=== PATIENT | female | born 1955 | race Caucasian/White ===

== ENCOUNTER 2019-06-17 08:02 | Outpatient (CLI) | payer OTHER, SELFPAY ==
--- NOTE | 2019-06-17 08:12 | MM_ITS ---
WS: [id number] BILATERAL SCREENING DIGITAL MAMMOGRAM WITH CAD HISTORY: SCREENING COMPARISON: 11/09/2016 and 11/29/2012 Bilateral CC and MLO views submitted. Computer aided detection analyzed. Breast composition: There are scattered areas of fibroglandular density. No suspicious masses, microc alcifications or architectural distortion. Asymmetry in the posterior LEFT breast is stable. MM/[id number] IMPRESSION: BI-RADS: 2-Benign FOLLOW UP: 1 Year Follow-up
== END 2019-06-17 08:03 | disposition home or self-care (01) ==
LOC: RADSHAW 08:08
PROVIDERS: Family Provider Family Medicine; PCP Family Medicine; Visit Provider Family Medicine
DX: Z12.31 Encounter for screening mammogram for malignant neoplasm of breast (principal)
CPT/HCPCS: 77067

== ENCOUNTER 2020-12-31 13:45 | Outpatient (CLI) | payer OTHER, SELFPAY ==
--- NOTE | 2020-12-31 13:53 | MM_ITS ---
WS: [id number] BILATERAL DIGITAL SCREENING MAMMOGRAPHY WITH CAD CLINICAL INFORMATION: SCREENING HISTORY: Screening mammogram. No current complaints. COMPARISON: June 17, 2019 TECHNIQUE: Bilateral CC and MLO views. FINDINGS: Scattered fibroglandular densities bilaterally. A few punctate calcifications. No suspicious focal ma ss, asymmetry, calcifications, or architectural distortion. No evidence of malignancy. MM/[id number] IMPRESSION: BI-RADS: 2-Benign FOLLOW UP: 1 Year Follow-up Recommend return to annual screening mammography.
== END 2020-12-31 13:46 | disposition home or self-care (01) ==
LOC: RADSHAW 13:50
PROVIDERS: PCP Family Medicine; Visit Provider Family Medicine
DX: Z12.31 Encounter for screening mammogram for malignant neoplasm of breast (principal)
CPT/HCPCS: 77067

== ENCOUNTER → 2022-02-06 09:27 | Outpatient (BNVA) | payer MEDICARE, SELFPAY | PROVIDERS: PCP Family Medicine; Visit Provider Family Medicine | DX: E78.5 Hyperlipidemia, unspecified (principal); I10 Essential (primary) hypertension; E11.9 Type 2 diabetes mellitus without complications | CPT/HCPCS: 80053; 80061; 82607; 83036 ==

== ENCOUNTER 2022-02-28 14:46 | Outpatient (CLI) | payer MEDICARE, SELFPAY ==
--- NOTE | 2022-02-28 15:18 | MM_ITS ---
WS: [id number] BILATERAL 3D TOMOSYNTHESIS DIGITAL SCREENING MAMMOGRAPHY WITH CAD CLINICAL INFORMATION: SCREEN HISTORY: Screening mammogram. No current complaints. COMPARISON: December 31, 2020 TECHNIQUE: Bilateral CC and MLO views. FINDINGS: Scattered fibroglandular densities bilaterally. No suspicious focal mass, asymmetry, calcifications, or architectural distortion. No evidence of malignancy. A few tiny punctate calcifications. MM/[id number] IMPRESSION: BI-RADS: 2-Benign FOLLOW UP: 1 Year Follow-up Recommend return to annual screening mammography.
== END 2022-02-28 14:47 | disposition home or self-care (01) ==
LOC: RAD 14:48
PROVIDERS: PCP Family Medicine; Visit Provider Family Medicine
DX: Z12.31 Encounter for screening mammogram for malignant neoplasm of breast (principal)
CPT/HCPCS: 77063; 77067

== ENCOUNTER → 2023-03-13 13:36 | Outpatient (BNVA) | payer MEDICARE, SELFPAY | PROVIDERS: PCP Family Medicine; Visit Provider Podiatrist Foot & Ankle Surgery | DX: E11.42 Type 2 diabetes mellitus with diabetic polyneuropathy; M76.821 Posterior tibial tendinitis, right leg; M76.822 Posterior tibial tendinitis, left leg | CPT/HCPCS: 73610; 99203 ==

== ENCOUNTER 2023-05-19 19:18 | Inpatient (IN) | payer MEDICARE, SELFPAY ==
[2023-05-19 19:22] VITALS: BP 199/102; PULSE 133; RESP 18; TEMP 36.6; O2SAT 94
--- NOTE | 2023-05-19 19:35 | CTR_ITS ---
PROCEDURE INFORMATION: Exam: CT Abdomen And Pelvis With Contrast Exam date and time: 05/19/2023 7:58 PM Age: 67 years old Clinical indication: Abdominal pain; Generalized; Prior surgery; Surgery date: 6+ months; Surgery type: Gb. Hysterectomy. Tubal. Patient HX: C/O worsening severe abd pain post colonoscopy 05/17/2022. TECHNIQUE: Imaging protocol: Computed tomography of the abdomen and pelvis with contrast. Radiation optimization: All CT scans at this facility use at least one of these dose optimization techniques: automated exposure control; mA and/or kV adjustment per patient size (includes targeted exams where dose is matched to clinical indication); or iterative reconstruction. Contrast material: OMNI 350; Contrast volume: 100 ml; Contrast route: INTRAVENOUS (IV); COMPARISON: No relevant prior studies available. RADIATION DOSE METRICS: Total DLP (mGy-cm): 1066.18 FINDINGS: Mediastinal space: Pneumomediastinum. Liver: See Gallbladder and bile ducts finding. Gallbladder and bile ducts: The gallbladder has been removed. Prominence of the intrahepatic and extrahepatic biliary ducts. This can be seen after cholecystectomy. No radiopaque retained stones are seen. Pancreas: Normal. No ductal dilation. Spleen: Normal. No splenomegaly. Adrenal glands: Normal. No mass. Kidneys and ureters: There is a short segment of dilatation of the distal right ureter without an obstructing calculus seen. Mild mid to distal right periureteral stranding. There are multiple foci of retroperitoneal air which surround the right kidney and the right ureter. Stomach and bowel: There is a 2.1 cm linear metallic density within the descending colon lumen possibly extending into the posterior colonic mucosa. There is a heterogeneous collection in the mesentery adjacent to the hepatic flexure colon containing complex fluid and multiple foci of air. There is a large amount of the intraperitoneal air surrounding this region. There is adjacent mesenteric stranding. This region measures 4.7 x 4.4 cm in AP/transverse dimensions. The adjacent hepatic flexure colon mucosa is thickened and ill-defined. Appendix: A normal appendix is identified. Intraperitoneal space: There is a large amount of free intraperitoneal air in the abdomen/pelvis. There is right retroperitoneal air as well. Vasculature: 13 mm peripherally calcified splenic artery aneurysm. No evidence for rupture. There is intermediate density surrounding the right common iliac artery which cannot be differentiated from the adjacent right common iliac vein concerning for vascular injury. No active extravasation of contrast is seen in this region. Lymph nodes: Unremarkable. No enlarged lymph nodes. Urinary bladder: Unremarkable as visualized. Reproductive: The uterus is not visualized, consistent with hysterectomy. Bones/joints: Unremarkable. No acute fracture. Soft tissues: Soft tissue emphysema. CT/CT abdomen pelvis w con* [id number] IMPRESSION: 1. There is a large amount of intraperitoneal and right retroperitoneal air consistent with a ruptured viscus. 2. There is a heterogeneous collection in the mesentery adjacent to the hepatic flexure colon containing complex fluid and multiple foci of air concerning for an abscess formation. The adjacent hepatic flexure colon mucosa is thickened and ill-defined with a surrounding large amount of free intraperitoneal air. This may represent the site of viscus rupture. 3. There is intermediate density surrounding the right common iliac artery which cannot be differentiated from the adjacent right common iliac vein concerning for vascular injury. No active extravasation of contrast is seen in this region. 4. There is a short segment of dilatation of the distal right ureter without an obstructing calculus seen. Mild mid to distal right periureteral stranding. There are multiple foci of retroperitoneal air which surround the right kidney and the right ureter. 5. There is a 2.1 cm linear metallic density within the descending colon lumen possibly extending into the posterior colonic mucosa. 6. Pneumomediastinum.
--- NOTE | 2023-05-19 19:39 | ED_ITS ---
HPI - Abdominal Pain 2 General: Chief Complaint: Abdominal Pain Stated Complaint: abd pAIN Time Seen by Provider: 05/19/23 19:26 Source: patient Mode of arrival: ambulatory Limitations: no limitations History of Present Illness: 67-year-old female who states that she h ad had a colonoscopy 3 days ago states since then she has been having diffuse abdominal pain. States the pain is sharp in nature rates it a 5 out of 10 denies any worsening proving factors. Associated Symptoms: Denies chills, diarrhea, dysuria, fever(s), nausea and vomiting Review of Systems 2 Const: Denies: fever(s), chills, body aches or change in appetite ENMT: Denies: throat pain or dental pain Card: Denies: chest pain Resp: Denies: dyspnea GI: Reports: abdominal pain; Denies: nausea, vomiting or diarrhea : Denies: dysuria Musc: Denies: neck pain or back pain Skin/Breast: Denies: rash Neuro: Denies: headache(s) Physical Exam 2 Const: COMMON NORMALS: no acute distress, patient oriented x3 and healthy appearing HENMT: COMMON NORMALS: normocephalic and atraumatic HEAD & SCALP: n ormocephalic and atraumatic Eye: COMMON NORMALS: Equal, round and reactive pupils present and EOMs intact bilaterally PUPIL: Yes Equal, round and reactive pupils present Neck/C-Spine: COMMON NORMALS: full ROM and supple Chest: COMMONS NORMALS: normal inspection of the chest Resp: COMMON NORMALS: normal respiratory effort Cardio: COMMON NORMALS: regular rhythm and No murmurs present (Cardio) R ATE: tachycardic RHYTHM: regular rhythm GI: COMMON NORMALS: no masses OTHER: diffuse tenderness Extremity: COMMON NORMALS: normal to inspection and full ROM Neuro: COMMON NORMALS: patient oriented x3, moves all extremities and no focal motor deficits Psych: COMMON NORMALS: mental status grossly normal, Normal thought process present and cooperative THOUGHT PROCESS: Normal thought process present Skin: COMMON NORMALS: no rashes or lesions noted and no wounds GENERAL SKIN EXAM: no rashes or lesions noted Course 2 Vital Signs: Vital signs: Vital Signs Temperature 98 F 05/19/23 19:22 Pulse Rate 108 H 05/19/23 20:00 Respiratory Rate 18 05/19/23 19:48 Blood Pressure 165/86 05/19/23 20:00 Pulse Oximetry 95 01/06/24 20:00 Oxygen Delivery Me thod Room Air 05/19/23 20:00 MDM - Abdominal Pain Medical Decision Making Patient presents here with perforation from colonoscopy likely CT shows extensive perforation and free air spoke to Dr. Willams surgeon whose came in to see the patient's likely going to take to the OR did start her on antibiotics. Medical Records I reviewed the patient's medical records. Lab Data I reviewed the patient's lab results. 05/19/23 19:37 05/19/23 20:28 Labs/Radiology: Radiology Impressions Abdomen/Pelvis CT 05/19/23 19:35 IMPRESSION: 1. There is a large amount of intraperitoneal and right retroperitoneal air consistent with a ruptured viscus. 2. There is a heterogeneous collection in the mesentery adjacent to the hepatic flexure colon containing complex fluid and multiple foci of air concerning for an abscess formation. The adjacent hepatic flexure colon mucosa is thickened and ill-defined with a surrounding large amount of free intraperitoneal air. This may represent the site of viscus rupture. 3. There is intermediate density surrounding the right common iliac artery which cannot be differentiated from the adjacent right common iliac vein concerning for vascular injury. No active extravasation of contrast is seen in this region. 4. There is a short segment of dilatation of the distal right ureter without an obstructing calculus seen. Mild mid to distal right periureteral stranding. There are multiple foci of retroperitoneal air which surround the right kidney and the right ureter. 5. There is a 2.1 cm linear metallic density within the descending colon lumen possibly extending into the posterior colonic mucosa. 6. Pneumomediastinum. ADDENDUM: 05/19/232041 CRITICAL RESULT: The study was personally discussed on the telephone with BRADY Kennedy on 05/19/2023 8:40 PM [employer]. The results were understood and acknowledged. Laboratory Results WBC 16.78 10^3/uL (3.29-11.43) H 05/19/23 19:37 RBC 4.62 10^6/uL (3.85-5.65) 05/19/23 19:37 Hgb 14.20 g/dL (11.27-16.99) 05/19/23 19:37 Hct 40.8 % (36-47) 05/19/23 19:37 MCV 88.3 fl (85-98) 05/19/23 19:37 MCH 30.7 pg (27-33) 05/19/23 19:37 MCHC 34.8 g/dL (30-55) 05/19/23 19:37 RDW 11.9 % (12.1-15.1) L 05/19/23 19:37 Plt Count 372 10^3/cmm (157-399) 05/19/23 19:37 MPV 9.1 fL (7.4-10.4) 05/19/23 19:37 Neut % (Auto) 82.7 % 05/19/23 19:37 Lymph % (Auto) 11.4 % 05/19/23 19:37 Taliaferro % (Auto) 4.6 % 05/19/23 19:37 Eos % (Auto) 0.8 % 05/19/23 19:37 Baso % (Auto) 0.1 % 05/19/23 19:37 Neut # (Auto) 13.88 10^3/uL (1.8-7.7) H 05/19/23 19:37 Lymph # (Auto) 1.9 10^3/uL (0.8-4.8) 05/19/23 19:37 Taliaferro # (Auto) 0.8 10^3/uL (0.2-0.9) 05/19/23 19:37 Eos # (Auto) 0.1 10^3/uL (0.0-0.8) 05/19/23 19:37 Baso # (Auto) 0.0 10^3/uL (0.0-0.1) 05/19/23 19:37 Nucleated RBC % (auto) 0 % 05/19/23 19:37 Nucleated RBCs # 0.0 /100WBC 05/19/23 19:37 Sodium Cancelled 05/19/23 19:37 Potassium Cancelled 05/19/23 19:37 Chloride Cancelled 05/19/23 19:37 Carbon Dioxide Cancelled 05/19/23 19:37 Anion Gap Cancelled 05/19/23 19:37 BUN Cancelled 05/19/23 19:37 Creatinine Cancelled 05/19/23 19:37 GFR Calculation Cancelled 05/19/23 19:37 Glucose Cancelled 05/19/23 19:37 Calculated Osmolality Cancelled 05/19/23 19:37 Calcium Cancelled 05/19/23 19:37 Total Bilirubin Cancelled 05/19/23 19:37 AST Cancelled 05/19/23 19:37 ALT Cancelled 05/19/23 19:37 Alkaline Phosphatase Cancelled 05/19/23 19:37 Total Protein Cancelled 05/19/23 19:37 Albumin Cancelled 05/19/23 19:37 Globulin Cancelled 05/19/23 19:37 Lipase Cancelled 05/19/23 19:37 Urine Color Yellow (Yellow) 05/19/23 19:31 Urine Appearance Hazy (CLEAR) A 05/19/23 19:31 Urine pH 6.5 (5-7) 05/19/23 19:[address] 1.005 (1.005-1.030) 05/19/23 19:31 Urine Protein Trace (Negative) 05/19/23 19:31 Urine Glucose (UA) 2+ (Normal) H 05/19/23 19:31 Urine Ketones 1+ (Negative) H 05/19/23 19:31 Urine Blood 2+ (Negative) H 05/19/23 19:31 Urine Nitrate Negative (Negative) 05/19/23 19:31 Urine Bilirubin Neg (Negative) 05/19/23 19:31 Urine Urobilinogen Norm mg/dL (Negative) 05/19/23 19:31 Ur Leukocyte Esterase 2+ (Negative) H 05/19/23 19:31 Urine RBC 5-10 /hpf (0-2) H 05/19/23 19:31 Urine WBC 25-40 /hpf (0-5) H 05/19/23 19:31 Ur Squamous Epith Cells 0-4 /hpf (0-5) H 05/19/23 19:31 Amorphous Sediment Trace /hpf 05/19/23 19:31 Urine Bacteria 1+ /hpf (NONE) H 05/19/23 19:31 Urine Mucus Trace /hpf 05/19/23 19:31 All radiology interpretation(s) finalized by discharge Critical Care Time 2 Critical Care Time: Critical Care Time: Yes Total Critical Care Time: 45 Attestation: The high probability of a clinically significant, sudden or life threatening deterioration of the patient's gi system(s) required my full and direct attention, intervention and personal management. The critical care time is as shown. This time is in addition to time spent performing any reported procedures but includes the following: [x] Data and vital sign review and interpretation [x] Patient assessment, examination and intervention [x] Documentation [x] Medication orders and management Discharge Plan Discharge Patient Disposition: Admitted As Inpatient Clinical Impression: Perforated abdominal viscus Condition: Stable Coding Level of Care Code ED Warp Drawer for Vargas Bruce
[2023-05-19] MEDS: sodium chloride 0.9% 1,000 ML 999 ML IV (19:45)
[2023-05-19 19:48] VITALS: RESP 18
[2023-05-19] MEDS: ondansetron 2 mg/ML SDV 2 mL 4 MG IVP (19:48)
[2023-05-19] MEDS: labetalol 5 mg/mL SDV 20mL 10 MG IVP (19:48)
[2023-05-19] MEDS: morphine 4 mg/mL SDV 1 mL IVP (19:48)
[2023-05-19 19:51] LABS: Basophils % 0.1 %; Eosinophils # 0.1 10^3/uL (0.0-0.8); Eosinophils % 0.8 %; Hematocrit 40.8 % (36-47); Lymphocytes # 1.9 10^3/uL (0.8-4.8); Lymphocytes % 11.4 %; Mean Corpuscular HGB Conc 34.8 g/dL (30-55); Mean Corpuscular Hemoglobin 30.7 pg (27-33); Mean Corpuscular Volume 88.3 fl (85-98); Mean Platelet Volume 9.1 fL (7.4-10.4); Monocytes # 0.8 10^3/uL (0.2-0.9); Monocytes % 4.6 %; Neutrophils # 13.88 10^3/uL (1.8-7.7); Neutrophils % 82.7 %; Nucleated Red Blood Cells % 0 %; Platelet Count 372 10^3/cmm (157-399); Red Blood Count 4.62 10^6/uL (3.85-5.65); Red Cell Distribution Width 11.9 % (12.1-15.1); White Blood Count 16.78 10^3/uL (3.29-11.43)
[2023-05-19 20:00] VITALS: BP 165/86; PULSE 108; O2SAT 95
[2023-05-19] MEDS: iohexol 350 mg/mL 500 mL Btl (per mL) IV (20:02)
[2023-05-19 20:11] LABS: Add Urine Microscopic? YES; Bilirubin Urine Neg (Negative); Blood Urine 2+ (Negative); Glucose Urine UA 2+ (Normal); Ketones Urine 1+ (Negative); Leukocyte Esterase Urine 2+ (Negative); Nitrate Urine Negative (Negative); Protein Urine Trace (Negative); Specific Gravity, Urine 1.005 (1.005-1.030); Urine Appearance Hazy (CLEAR); Urine Color Yellow (Yellow); Urobilinogen Urine Norm (Negative); pH Urine 6.5 (5-7)
[2023-05-19 20:13] LABS: Amorphous Sediment Urine TRACE /hpf; Bacteria Urine 1+ /hpf; Squamous Epithelial Cell Urine 0-4 /hpf (0-5); WBC Urine 25-40 /hpf (0-5)
[2023-05-19 20:14] LABS: Add Urine Culture? Yes; Mucus Urine TRACE /hpf
--- NOTE | 2023-05-19 20:20 | PC.NURSE ---
PER DR CLEVELAND, PT DOES NOT NEED TO HAVE BLOOD CULTURES DRAWN PRIOR TO STARTING ANTIBIOTICS.
[2023-05-19] MEDS: piperacillin-tazobactam 3.375 GM in sodium chloride 0.9% (plus) 50 ML IV (20:29)
--- NOTE | 2023-05-19 20:35 | P.HP_ITS ---
Providers/Chief Complaint 2 Primary Care Provider: ASHOK Padron Chief Complaint: abd pAIN History of Present Illness Mary Torre is a 67 year old female who had colonoscopy with Dr. Jeronimo 2 days ago as screening colonoscopy because there is a family history of GI malignancy, patient never had any established diagnosis of malignancy, she does not carry any significant past medical history other than hypertension and diabetes she does not take any insulin, she has history of cholecystectomy, hysterectomy and tubal ligation other than that no significant surgical history presenting with chief complaint of right-sided dull abdominal pain. Patient is stating that right after her colonoscopy she felt dull ache in her right flank but she did not pay much attention, she was writing out her pain she was not experiencing any fever, nausea, vomiting she in fact was passing gas and regular bowel movement. Her daughter convinced her to go to the hospital today in the ER she has been diagnosed with perforated viscus she does have high lactic acid with tachycardia and leukocytosis she would meet sepsis criteria, she seems to have component of UTI/pyelonephritis She received 2 L I will give her third liter as septic bolus I will start her on meropenem, vancomycin and clindamycin, she is going to the OR on stat basis, Dr. Willams is seeing her right now in the ER I will request blood cultures, repeat lactic acid, patient has received Zosyn Review of Systems 2 Const: Denies: fever(s) Eyes: Denies: change in vision ENMT: Denies: throat pain Card: Denies: chest pain Resp: Denies: dyspnea GI: Reports: abdominal pain : Reports: flank pain Musc: Denies: neck pain Skin/Breast: Denies: rash Neuro: Denies: headache(s) Psych: Reports: anxiety Endo: Denies: polyuria Dave/Lymph: Denies: easy bruising Medications/Allergies Home Medications Medication Instructions Recorded Confirmed Last Taken Type metformin 1,000 mg tablet 1,000 mg PO BID #180 tabs 03/08/23 03/13/23 Unknown Rx AFO to right #1 ea 03/13/23 03/13/23 Unknown Rx Diabetic Shoes with 3 sets of #1 ea 03/13/23 03/13/23 Unknown Rx insoles Allergies Allergy/AdvReac Type Severity Reaction Status Date / Time Quqpsla-LUO-CyG Reductase Allergy Unknown Verified 05/19/23 19:29 Inhibitor PFSH Acute 2 PFSH: Medical History (Updated 05/19/23 @ 21:00 by Russ Velásquez MD) Hypertension Well adult exam Diabetes Screening for breast cancer Surgical History (Updated 05/19/23 @ 21:00 by Russ Velásquez MD) History of colonoscopy Screening colonoscopy Vitals/I&O/Wt Last Vital Signs Temp 98 F 05/19/23 19:22 Pulse 108 H 05/19/23 20:00 Resp 18 05/19/23 19:48 BP 165/86 05/19/23 20:00 Pulse Ox 95 05/19/23 20:00 O2 Del Method Room Air 05/19/23 20:00 Weight last 48 hrs Weight 104.326 kg Physical Exam 2 Narrative: Present middle-age female Currently not in any distress Sitting in her bed without any active discomfort No active chest pain or shortness of breath No audible stridor or wheezing Currently on room air Hemodynamic stable Tachycardia Abdomen distended, with guarding Right flank discomfort No active signs of fluid overload S1, S2 Family at the bedside GCS 15 Nonfocal neuroexam Data 05/19/23 19:37 05/19/23 20:28 A&P Assessment and plan (1) Perforated abdominal viscus: (2) Sepsis: (3) UTI (urinary tract infection): Plan Sepsis related to perforated viscus Recent colonoscopy was done by general surgeon Dr. Jeronimo as per the family, Her colonoscopy was a follow-up screening procedure because of history of GI cancer in the family She does not have any history of cancer Patient is stating that every time she goes for colonoscopy polyps have been removed She only carries history of hypertension and diabetes RCRI low risk she is not on insulin, creatinine is normal, no previous history of coronary disease Sepsis criteria met with tachypnea tachycardia leukocytosis high lactic acid with evidence of organ damage appropriate viscus I will put her on 3 different antibiotics including vancomycin meropenem and clindamycin, and using clindamycin as toxin suppression as 3 doses postoperatively I will give her septic bolus she had received 2 L so far I will give her third liter of LR Blood cultures ordered by myself Will request urine culture she seems to have UTI, rule out pyonephritis Patient will stay n.p.o. At Protonix 40 mg IV twice daily I will also request type and screen and echo She will go to ICU after her surgery She will need central line placement as well, I am anticipating she will stay n.p.o. for prolonged. Time will request dietitian as well in case she would require TPN via central line Will add DVT prophylaxis after surgery Full code Family at the bedside Attestations 2 Medical Necessity Statement*: Anticipating more than 2 midnights patient is septic will need ICU, she is considered high risk for mortality and morbidity considering her active condition She will need closer monitoring Diagnoses Perforated abdominal viscus R19.8 Sepsis A41.9 UTI (urinary tract infection) N39.0
[2023-05-19 20:48] LABS: Lactic Sepsis W/Reflex 3.1 mmol/L (0.5-2.2)
--- NOTE | 2023-05-19 20:52 | P.CONIM_ITS ---
Providers/Reason For Consult 2 Consulting Physician/Specialty*: Dr. Ran Willams, /General surgery Reason for Consult*: Intestinal perforation Attending Physician: Ran Willams DO Primary Care Provider: ASHOK Padron History of Present Illness History of Present Illness Mary Torre is a 67 year old female, with a history significant only for hypertension and diabetes along with a surgical history of open cholecystectomy and hysterectomy, who presents to the hospital with a 2-day history of right upper quadrant abdominal pain. She underwent an elective colonoscopy two days ago at an outside facility. She reports that she is gotten progressive right- sided abdominal pain that is sharp and constant. Palpation makes pain worse. Nothing makes pain better. She denies any nausea or vomiting. She reports the passing flatus since the procedure but not having a bowel movement. She has eaten since surgery, but she has not had anything to eat or drink since 3 PM today. Denies any fever or chills. CT abdomen pelvis shows gross free air with inflammation worse in the right upper quadrant. There is also subcutaneous emphysema along the right flank. Review of Systems 2 General: Reports: 10 or more systems reviewed and unremarkable except in HPI and below Medications/Allergies Home Medications Medication Instructions Recorded Confirmed Last Taken Type metformin 1,000 mg tablet 1,000 mg PO BID #180 tabs 03/08/23 03/13/23 Unknown Rx AFO to right #1 ea 03/13/23 03/13/23 Unknown Rx Diabetic Shoes with 3 sets of #1 ea 03/13/23 03/13/23 Unknown Rx insoles Allergies Allergy/AdvReac Type Severity Reaction Status Date / Time Gkrbzeo-LTA-SaD Reductase Allergy Unknown Verified 05/19/23 19:29 Inhibitor PFSH Acute 2 PFSH: Medical History (Updated 05/19/23 @ 21:00 by Russ Velásquez MD) Hypertension Well adult exam Diabetes Screening for breast cancer Surgical History (Updated 05/19/23 @ 21:00 by Russ Velásquez MD) History of colonoscopy Screening colonoscopy Vitals/I&O/Wt Last Vital Signs Temp 98 F 05/19/23 19:22 Pulse 108 H 05/19/23 20:00 Resp 18 05/19/23 19:48 BP 165/86 05/19/23 20:00 Pulse Ox 95 05/19/23 20:00 O2 Del Method Room Air 05/19/23 20:00 Weight last 48 hrs Weight 230 lb Physical Exam 2 Narrative: General : Patient is well developed , no acute distress, oriented x3 Head : Normal cephalic, a-traumatic. Ears : Pinnae and external canal are normal. Hearing is normal. Eyes : PERRLA, Sclera and injection are normal. No conjunctival discharge. Nose : Mucous membranes are without erythema. Throat : buccal mucosa is normal, gums are without significant recession or hypertrophy. Lungs : Equal chest rise bilaterally, no use of accessory muscles, trachea is midline. Cor : Tachycardic, regular rhythm Abdomen : Soft, distended, diffusely tender, positive guarding/rebound Extremities : No edema, no cyanosis or clubbing, dorsalis pedis pulses are present bilaterally, non-tender to palpation of calves. Upper extremities are normal bilaterally. Back : non-tender to palpation, no CVA tenderness. Neuro : CN II - XII intact, Upper and lower extremities have equal and full strength Data 05/19/23 19:37 05/19/23 20:28 A&P Assessment and plan (1) Perforated abdominal viscus: (2) History of colonoscopy: (3) Sepsis: Plan Taking her back to the operating room as soon as possible for exploratory laparotomy, possible ostomy, possible bowel resection The risk and benefits of the procedure, including but not limited to, bleeding, infection, scar, numbness, pain, damage to surrounding structures, anastomotic leak, high likelihood of patient being left in discontinuity with the intention of coming back 24 to 48 hours later for a second look, washout and possible reanastomosis, prolonged hospital stay and were explained to the patient and her family. They are understanding the risks and wished to proceed. Patient is being placed on vancomycin and meropenem. She will be going to the ICU after the procedure Coding Level of Care Code 71767 Diagnoses Perforated abdominal viscus R19.8 History of colonoscopy Z98.890 Sepsis A41.9
[2023-05-19 20:54] LABS: Alanine Aminotransferase 22 U/L (0-33); Albumin Level 3.4 g/dL (3.5-5.2); Alkaline Phosphatase 69 U/L (35-105); Anion Gap 15.1 (5-19); Aspartate Amino Transferase 20 U/L (0-32); Blood Urea Nitrogen 7 mg/dL (8-23); Calcium 8.9 mg/dL (8.5-10.5); Carbon Dioxide 23 mmol/L (22-29); Chloride 99 mmol/L (98-107); Glomerular Filtration Rate 83.7 mL/min (90-130); Glucose 230 mg/dL (65-115); Lipase 36 U/L (13-60); Osmolality Calculated 283 mOsm/kg (285-295); Potassium 3.1 mmol/L (3.5-5.1); Sodium 134 mmol/L (136-145); Total Bilirubin 0.6 mg/dL (0.15-1.2); Total Protein 6.4 g/dL (6.6-8.7)
[2023-05-19 21:09] VITALS: BP 184/98; PULSE 105; O2SAT 96
--- NOTE | 2023-05-19 21:40 | ANES.PREANE2 ---
Pre-Anesthetic Assessment Height/Weight: Height 1.75 m Weight 104.326 kg Temp Pulse Resp BP Pulse Ox O2 Del Method 98 F 105 H 18 184/98 96 Room Air 05/19/23 19:22 05/19/23 21:09 05/19/23 19:48 05/19/23 21:09 05/19/23 21:09 05/19/23 20:00 Preop Diagnosis: perforated bowel Operation Date: 05/19/23 21:00 Proposed Procedures p Exploratory Laparotomy(Not Applicable) - Ran Willams, Social No alcohol and No tobacco Exam alert, oriented x 3, clear to auscultation bilaterally and regular rate & rhythm Airway Submandibular: within normal limits Cervical ROM: within normal limits Mallampati: Class II Pulmonary None reported CV/HEM Hypertension None reported Hepatic None reported GI perforted bowel from colonoscopy days ago Metabolic Diabetes Mellitus and Morbid Obesity [facility] [place] None reported Neuropsych None reported Anesthetic Plan ASA status: 3E Anesthesia: General Risk of > 500 ml blood loss (7ml/kg in children): Yes, adequate IV access and fluids planned Medications/Allergies Home Medications Medication Instructions Recorded Confirmed Last Taken Type metformin 1,000 mg tablet 1,000 mg PO BID #180 tabs 03/08/23 03/13/23 Unknown Rx AFO to right #1 ea 03/13/23 03/13/23 Unknown Rx Diabetic Shoes with 3 sets of #1 ea 03/13/23 03/13/23 Unknown Rx insoles Allergies Allergy/AdvReac Type Severity Reaction Status Date / Time [id number] Reductase Allergy Unknown Verified 05/19/23 19:29 Inhibitor [facility] Anesthesia Medical History (Updated 05/19/23 @ 21:00 by Russ Velásquez MD) Hypertension Well adult exam Diabetes Screening for breast cancer Surgical History (Updated 05/19/23 @ 21:00 by Russ Velásquez MD) History of colonoscopy Screening colonoscopy Data Anesthesia 05/19/23 19:37 05/19/23 20:28 Short CBC 05/19/23 Range/Units 19:37 WBC 16.78 H (3.29-11.43) 10^3/uL Hgb 14.20 (11.27-16.99) g/dL Hct 40.8 (36-47) % MCV 88.3 (85-98) fl Plt Count 372 (157-399) 10^3/cmm Neut % (Auto) 82.7 % Neut # (Auto) 13.88 H (1.8-7.7) 10^3/uL BMP 05/19/23 05/19/23 19:37 20:28 Sodium Cancelled 134 L Potassium Cancelled 3.1 L Chloride Cancelled 99 Carbon Dioxide Cancelled 23 BUN Cancelled 7 L Creatinine Cancelled 0.7 Glucose Cancelled 230 H Calcium Cancelled 8.9 Liver Function 05/19/23 05/19/23 Range/Units 19:37 20:28 Total Bilirubin Cancelled 0.6 AST Cancelled 20 ALT Cancelled 22 Alkaline Phosphatase Cancelled 69 Albumin Cancelled 3.4 L Urine 05/19/23 Range/Units 19:31 Urine Color Yellow (Yellow) Urine Appearance Hazy A (CLEAR) Urine pH 6.5 (5-7) Ur Specific Biggers 1.005 (1.005-1.030) Urine Protein Trace (Negative) Urine Glucose (UA) 2+ H (Normal) Urine Ketones 1+ H (Negative) Urine Nitrate Negative (Negative) Urine Bilirubin Neg (Negative) Ur Leukocyte Esterase 2+ H (Negative) Urine RBC 5-10 H (0-2) /hpf Urine WBC 25-40 H (0-5) /hpf Cardiac Studies: No Data to Display
[2023-05-19 22:22] LABS: Reflex Lactate Order REFLEX LACTIC ORDERD
--- NOTE | 2023-05-19 23:58 | ANES.PROC ---
Anesthesia Procedures Procedure/Date: 05/19/23 Central Venous Insert: Central Venous Line: 7 fr 3-lumen 16cm Time Out Performed: Yes Consent: requested by attending/covering physician, from patient, risks and benefits reviewed and patient agrees to proceed Central Line: New Anesthesia monitors: pulse oximetry, EKG, BP cuff and oxygen Vein cannulated: left subclavian Post procedure: Obtain Chest X-Ray Additional Comments: Seldinger tech, full sterile attire, sutured in place, patient tolerated well...CXR pending. (Done in OR)
[2023-05-20] VITALS (38 sets, daily range): BP systolic 108–202; BP diastolic 60–107; PULSE 83–107; RESP 12–25; TEMP 36.7–37.5; O2SAT 93–99
--- NOTE | 2023-05-20 00:24 | PM.OP ---
Operative Report Date of procedure: May 20, 2023 Pre-op diagnosis: Perforated viscus Post-op diagnosis: Iatrogenic colon perforation at the hepatic flexure Procedure done: Exploratory laparotomy Extensive lysis of adhesions Right hemicolectomy Creation of omental flap Implants: 19 [place] Edin drain Specimens removed/disposition: Right colon and terminal ileum Surgeon: Ran Willams DO Anesthesia: General Estimated blood loss (mL): 50 Complications: None apparent Brief History: This is a very pleasant 67-year-old female who presented to the hospital with a 2-day history of right-sided abdominal pain. Workup revealed a colonic perforation. She had recently undergone an outpatient colonoscopy 2 days prior. Exploratory laparotomy, possible ostomy, possible bowel resection was indicated. The risk and benefits were explained and documented. Procedure: Patient was wheeled operative room placed on the OR table in supine position. The abdomen was inspected prepped and draped in usual sterile fashion. Right radial arterial line and a left subclavian central line were placed by the department of anesthesia. General endotracheal intubation was achieved by the department of anesthesia. A timeout was performed. All present were in agreement. An 11 blade scalpel was used to make a midline laparotomy incision from inferior to the umbilicus up to the xiphoid process. Electrocautery was then used to dissect down through the dermis and subcutaneous tissue down to the fascia. The fascia was opened sharply with electrocautery. This was extended cephalad and caudad over my finger with electrocautery. It was immediately obvious that there were extremely dense adhesions in the right upper quadrant and epigastrium from a previous open cholecystectomy as well as dense adhesions in the pelvis from a previous hysterectomy. Extensive lysis of adhesions was performed both bluntly and with electrocautery for over 90 minutes. Based upon previous CT, I felt it was likely the perforation was located near the hepatic flexure. The right white line of Toldt was taken down with electrocautery. Hepatic flexure was taken down with meticulous dissection using electrocautery and blunt dissection. The area of perforation was encountered in the retroperitoneum at the hepatic flexure. There was minimal stool spillage. Care was taken not to further contaminate. Next the terminal ileum was dissected free from the pelvis. This was densely scarred into the pelvis and was part of the 90 minutes of extensive lysis of adhesions. About 1 foot of the terminal ileum was taken up to the transverse colon. An enterotomy was made in the ileum and a colotomy was made in the transverse colon. A [id number], functional end-to-end anastomosis was made using a SAMSON a 100 blue load stapler x 2. Mesentery was taken and ligated with LigaSure. Specimen was passed off. Electrocautery was used to achieve hemostasis. The anastomosis looked healthy throughout the procedure. In order to protect the anastomosis I elected to create an omental flap. The only viable omentum after her previous open cholecystectomy was in the left upper quadrant. An omental flap was created using electrocautery and ligature to elongate a piece of the omentum to cover the anastomosis. The omentum was laid across the anastomosis. A 19 [place] Edin drain was then placed behind the anastomosis and the right upper quadrant and down the right colic gutter, exiting the abdomen and the right lower quadrant. The drain was sewn in place with 2-0 silk. The abdomen was irrigated and suctioned. Hemostasis was noted. The midline incision was then closed at the fascia with #1 PDS in a running fashion x 2. Skin was closed using arti. Sterile bandages were applied. Patient patient tolerated procedure well and was wheeled to the intensive care unit.
--- NOTE | 2023-05-20 00:48 | PC.NURSE ---
Received patient from OR via bed to ICU room 9 with RN and EMS HELICOPTER PILOT at bedside. Bagging patient through 8.0 OETT with 100% O2. Placed on mechanical ventilator per RT. Connected to media monitor. Large mid abdominal dressing clean, dry, and intact with Edin drain in place with serosang drainage. SCDs on patient, connected to pump. V/S stable.
[2023-05-20] MEDS: dextrose 5%-lactated ringers 1,000 ML 75 ML IV (01:10)
[2023-05-20] MEDS: clindamycin 900 MG/50 ML PREMIX 100 MG IV ×3 (01:11→16:54)
[2023-05-20] MEDS: propofol 1,000 MG/100 ML INJ 6.26 MG IV (01:29)
[2023-05-20] MEDS: meropenem 1,000 MG in sodium chloride 0.9% (plus) 50 ML 100 MG IV ×3 (01:42→18:24)
[2023-05-20 02:07] LABS: Lactate (Lactic Acid level) 1.3 mmol/L (0.5-2.2)
[2023-05-20] MEDS: vancomycin 2,000 MG/400 ML PIGGYBACK 200 MG (02:10)
[2023-05-20 04:16] LABS: ABG PCO2 39.5 mmHg (35-45); ABG PH Result 7.35 (7.35-7.45); Arterial Blood Gas Hematocrit 35.6 % (37-47); Base Excess ABG -3.8 mmol/L (-2.0-2.0); Blood Gas Operator Identificat CAK; Blood Gas Sample Site ARTLINE; Blood Gas Sample Type Arterial; Blood Gas Tidal Volume 0.45; HCO3 ABG 21.6 mmol/L (22-26); Oxygen Device VENT; PO2 ABG 80.3 mmHg (80.0-100.0); PO2 FiO2 Ratio Arterial Blood 0
[2023-05-20 05:01] LABS: Basophils % 0.1 %; Hematocrit 35.5 % (36-47); Lymphocytes # 0.5 10^3/uL (0.8-4.8); Mean Corpuscular HGB Conc 33.2 g/dL (30-55); Mean Corpuscular Hemoglobin 30.6 pg (27-33); Mean Corpuscular Volume 92.2 fl (85-98); Mean Platelet Volume 9.2 fL (7.4-10.4); Monocytes # 0.7 10^3/uL (0.2-0.9); Monocytes % 5.4 %; Neutrophils % 90.1 %; Nucleated Red Blood Cells % 0 %; Platelet Count 284 10^3/cmm (157-399); Red Blood Count 3.85 10^6/uL (3.85-5.65); Red Cell Distribution Width 12.2 % (12.1-15.1); White Blood Count 12.64 10^3/uL (3.29-11.43)
[2023-05-20 05:28] LABS: Alanine Aminotransferase 29 U/L (0-33); Albumin Level 3.1 g/dL (3.5-5.2); Alkaline Phosphatase 67 U/L (35-105); Anion Gap 15.4 (5-19); Aspartate Amino Transferase 24 U/L (0-32); Blood Urea Nitrogen 8 mg/dL (8-23); C Reactive Protein 249.7 mg/L (0.0-4.9); Calcium 7.8 mg/dL (8.5-10.5); Carbon Dioxide 21 mmol/L (22-29); Chloride 101 mmol/L (98-107); Globulin 2.8 g/dL (1.3-4.6); Glomerular Filtration Rate 83.7 mL/min (90-130); Glucose 331 mg/dL (65-115); Magnesium 1.4 mg/dL (1.7-2.3); Osmolality Calculated 289 mOsm/kg (285-295); Phosphorus 3.1 mg/dL (2.5-4.5); Potassium 3.4 mmol/L (3.5-5.1); Sodium 134 mmol/L (136-145); Total Bilirubin 0.9 mg/dL (0.15-1.2); Total Protein 5.9 g/dL (6.6-8.7)
[2023-05-20] MEDS: HYDROmorphone 1 mg/mL INJ 1 mL 0.2 MG IVP ×2 (07:22→11:40)
[2023-05-20] MEDS: lidocaine 1% 5 ML in potassium chloride premix 100 ML 25 ML IV (08:04)
[2023-05-20] MEDS: pantoprazole 40 mg SDV IVP ×2 (08:08→18:38)
[2023-05-20] MEDS: magnesium sulfate premix 2 GM/50 ML PIGGYBACK IV ×2 (08:09→16:54)
[2023-05-20] MEDS: enoxaparin 40 mg/0.4 mL Syringe SUBCUT (08:34)
[2023-05-20 08:43] LABS: Estmated Average Glucose 154
[2023-05-20 08:52] LABS: Procalcitonin 0.37 ng/mL (0-0.5)
--- NOTE | 2023-05-20 09:00 | USCV_ITS ---
Mary Torre Age: 67 Gender: F : 1955 Exam Date: 05/20/2023 08:34 Ordering Phys: Russ Velásquez MD Technologist: Kavon Brewer Exam Location: [facility] [place] Indication: sepsis BP: 159 / 91 HR: 100 Rhythm: Sinus Technical Quality: Limited MEASUREMENTS (Male / Female) Normal Values 2D ECHO LV Ejection Fraction MOD 2C 61.7 % LV Ejection Fraction 2C AL 61.5 % LA Width 2.7 cm LA Height 4.0 cm RA Width 2.6 cm RA Height 3.4 cm DOPPLER AV Peak Velocity 146.0 cm/s LVOT Peak Velocity 90.0 cm/s MV Peak Velocity 119.0 cm/s MV Area PHT 6.5 cm squared Mitral E to A Ratio 0.6 MV E' Velocity 31.0 cm/s Mitral E to MV E' Ratio 8.7 Mitral E to LV E' Lateral Ratio 9.2 Mitral E to LV E' Septal Ratio 8.2 PV Peak Velocity 94.0 cm/s RV Acceleration Time 0.1 s RV Ejection Time 0.3 s RV AcT/ET 0.5 FINDINGS Left Ventricle Technically very limited quality echocardiogram because of poor ultrasonic windows. LV systolic function is normal with EF of 60 to 65%. No regional wall abnormalities are seen. Right Ventricle Not well-visualized Right Atrium Normal in size Left Atrium Normal in size Mitral Valve Not well-visualized Aortic Valve Not well-visualized Tricuspid Valve Not well visualized Pulmonic Valve Not well visualized Pericardium Not well visualized Aorta Not well visualized IVC Not well visualized CONCLUSIONS Technically very limited quality echocardiogram because of poor ultrasonic windows. LV systolic function is normal with EF of 60 to 65%. Valvular structures are not visualized. No comparison studies are available. Abilio Figueroa MD (Electronically Signed) Final Date: 20 May 2023 11:46 S
--- NOTE | 2023-05-20 09:44 | PC.PHAR ---
pt intubated unable to verify medications with pt-medications entered are what shows has been filled recently on ext med history
[2023-05-20 11:21] LABS: D Dimer 3.13 ug/mLFEU (0-0.59)
--- NOTE | 2023-05-20 11:43 | ANE.PACU2 ---
Inpatient post-anesthesia follow up: Airway intact: Yes Vital signs: Temperature 99.5 F Pulse Rate 97 Respiratory Rate 20 Blood Pressure 177/100 Pulse Oximetry 96 Oxygen Delivery Me thod Mechanical Ventila tion Oxygen Flow Rate 40 Fraction of Inspir ed Oxygen 35 Hydration adequate: No Nausea and vomiting: No Pain level: 6 Mental status: Baseline Additional Comments: Extubated this morning.
[2023-05-20] MEDS: HYDROmorphone 1 mg/mL INJ 1 mL 0.5 MG IVP ×3 (14:45→22:53)
[2023-05-20] MEDS: potassium chloride premix 100 ML 25 MEQ IV (16:45)
[2023-05-20 17:29] LABS: Glucose Point of Care 182 mg/dL (70-110)
[2023-05-20 19:16] LABS: Glucose Point of Care 196 mg/dL (70-110)
[2023-05-20] MEDS: lactated ringers 1,000 ML 75 ML IV (19:33)
--- NOTE | 2023-05-20 19:38 | P.PN_ITS ---
Subjective 2 Subjective: Earlier this morning awake, alert, mechanical ventilatory support. Did well with weaning trial. Not in pain. Extubated to nasal cannula. Later in the day having some pain mostly right upper quadrant which was not adequately covered with low-dose Dilaudid. No trouble breathing or chest pain. She is up for trying to mobilize a bit tomorrow. Vitals/I&O/Wt Last Vital Signs Temp 99.1 F 05/20/23 18:00 Pulse 96 05/20/23 18:00 Resp 20 H 05/20/23 18:41 BP 172/87 05/20/23 18:00 Pulse Ox 97 05/20/23 18:00 O2 Del Method Nasal Cannula 05/20/23 18:00 O2 Flow Rate 2 05/20/23 18:00 FiO2 35 05/20/23 09:29 05/20/23 05/20/23 05/20/23 06:59 14:59 22:59 Intake Total 721.774 / 1771.774 330.866 / 330.866 400 / 730.866 Output Total 1050 / 1050 950 / 950 Balance -328.226 / 721.774 330.866 / 330.866 -550 / -219.134 Weight last 48 hrs Weight 113.852 kg Weight 106.594 kg Weight 104.326 kg Physical Exam 2 Narrative: Accompanied by family. Const: COMMON NORMALS: patient oriented x3 and alert GENERAL APPEARANCE: c ooperative and patient mechanically ventilated ORIENTATION/CONSCIOUSNESS: Yes awake HENMT: COMMON NORMALS: oropharynx normal Neck/C-Spine: COMMON NORMALS: no JVD Resp: COMMON NORMALS: normal respiratory effort and clear to auscultation bilaterally AUSCULTATION: clear to auscultation bilaterally Cardio: COMMON NORMALS: no JVD, regular rhythm, S1 normal heart sound present, S2 normal heart sound present and No murmurs present (Cardio) RHYTHM: regular rhythm HEART SOUNDS: S1 normal heart sound present and S2 normal heart sound present GI: COMMON NORMALS: Normal to inspection, nondistended, normoactive bowel sounds present, Soft to palpation and non-tender PALPATION: Yes Soft to palpation OTHER: Dressing over abdominal wound. TARNY drain, w serosang fluid. Extremity: COMMON NORMALS: no joint enlargement and no pedal edema OTHER: No swelling, erythema,. Mass or tenderness in the right groin. Neuro: COMMON NORMALS: patient oriented x3 and moves all extremities S ENSORIUM/ORIENTATION: Yes alert Skin: COMMON NORMALS: no rashes or lesions noted GENERAL SKIN EXAM: no rashes or lesions noted Urinary Catheter Management: Jiménez: Cath Placed During This Visit: yes Reason for Continuing Indwelling Catheter: Accurate Measurement of Urinary Output in Critically Ill Patients Urinary Catheter Date of Insertion: 05/19/23 Urinary Catheter Time of Insertion: 21:40 Data 05/20/23 04:18 05/20/23 04:18 A&P Assessment and plan (1) Perforated abdominal viscus: Status post lysis of adhesions and repair of perforation in the right upper quadrant, reviewed surgery consultation note, op note. Discussed with surgeon. She is awake and alert this morning, off sedation, did well with weaning trial. Discussed continuation of mechanical ventilatory support for reassessment of condition with recovery postoperatively, recommendation to extubate as she has been doing well and anticipated to continue to recover well. Discussed with her and family. Discussed with respiratory therapy. RSBI obtained and favorable. She would like to extubate. Extubated to nasal cannula, doing well on recheck, no respiratory issues. Is having pain in right upper quadrant, was on Dilaudid 0.2 mg every 4 hours, however, not controlling pain. Mostly in right upper quadrant where she had most of the adhesions. Increased 2.5 mg every 4 hours for now, discussed to keep us updated on how it is being controlled. Adjust medication as needed. IS added, discussed with her. For now continues NPO. IVF, noted in negative balance. Reviewed CBC, ABG, CMP. CT abdomen pelvis. Discussed with surgery, discussed with her ascending colon 2.1 cm linear metallic density as per discussion of surgery her family tells me they had discussed it as well, identified as a clip. Continue empiric antibiotic coverage with meropenem, vancomycin. Monitor for any signs of renal injury with vancomycin. Reassess kidney function. Electrolytes. Monitor for any seizure with meropenem. VTE prophylaxis. PPI prophylaxis. PT assessment. Case management consultation. (2) Sepsis: As above. Continue meropenem, vancomycin. Serosanguineous drainage noted in abdominal drain. Follow-up blood cultures. Urine culture. Sepsis secondary to perforated viscus, possible component of UTI. Without obstructive uropathy. (3) UTI (urinary tract infection): Possible UTI versus locally reactive change/Inflammation, continue empiric coverage with meropenem. Follow-up urine culture, blood culture. (4) Vascular abnormality: Discussed with her and family on second visit, regarding also the incidentally noted intermediate density surrounding right common iliac artery which cannot be differentiated from adjacent right, iliac vein on CT. With report stating possible vascular injury, no active extravasation of contrast seen in the region. I do not see any vascular access sites in that area, there is no swelling, redness or tenderness on exam. Discussing with surgery this appears possibly to be an aneurysm. Discussed with her will need long-term follow-up. For now we will additionally assess with ultrasound. Requested for assessment of the common iliac artery, vein, assess for any abscess. Plan Hypomagnesemia:Received replacement. Recheck levels. Hypertension: Uncontrolled hypertension, currently unable to take her oral medication. Blood pressure up as high as 200s, on IV fluids, but in negative balance, so continue for now. Added hydralazine with parameters. Resume oral antihypertensive once tolerating oral intake. D-dimer level elevated: Looks like there was a D-dimer level obtained. There is no documented concern for active DVT or PE. This appears came back postoperatively at 3.13. Not sure of the utility given surgery, lysis of adhesions. She otherwise does not present symptoms of DVT or PE. On VTE prophylaxis, continue. Will reassess D-dimer. Check rapid COVID, Flu antigens. In case of worsening oxygenation or symptoms of DVT or PE, low threshold for additional assessment. Diabetes: Add Accu-Cheks, low-dose sliding scale. Would benefit from statin. Attestations 2 Medical Necessity Statement*: Continue admission for assessment management following repair of perforated viscus, sepsis, possible UTI. Coding Level of Care Code Critical Care >/= 30 minutes Critical care time (in minutes): 40 The high probability of a clinically significant, sudden or life threatening deterioration, as referenced in this documentation, required my full and direct attention, intervention and personal management. The critical care time shown is in addition to time spent performing any reported separately billable procedures and includes the following: [x] Data and vital sign review and interpretation [x ] Patient assessment, examination and intervention [x] Medication orders and management [x] Patient/Family updates as able [x] Care Coordination and Documentation. Diagnoses Perforated abdominal viscus R19.8 Sepsis A41.9 UTI (urinary tract infection) N39.0 Vascular abnormality I99.9
[2023-05-20] MEDS: insulin lispro 100 unit/1 mL SUBCUT (21:37)
[2023-05-20] MEDS: hyDRALAzine 20 mg/mL INJ 1 mL 5 MG IVP (21:37)
[2023-05-20 22:09] LABS: SARS Covid-2 Antigen negative (Negative)
[2023-05-20 22:10] LABS: Influenza A by IFA negative (Negative); Influenza B by IFA negative (Negative)
[2023-05-21] VITALS (33 sets, daily range): BP systolic 135–196; BP diastolic 71–126; PULSE 98–117; RESP 12–23; TEMP 36.9–38.2; O2SAT 90–97
[2023-05-21] MEDS: meropenem 1,000 MG in sodium chloride 0.9% (plus) 50 ML 100 MG IV ×3 (01:23→17:27)
[2023-05-21] MEDS: hyDRALAzine 20 mg/mL INJ 1 mL 5 MG IVP ×3 (01:25→13:18)
[2023-05-21] MEDS: HYDROmorphone 1 mg/mL INJ 1 mL 0.5 MG IVP ×5 (02:45→20:28)
[2023-05-21 03:10] LABS: Glucose Point of Care 170 mg/dL (70-110)
[2023-05-21] MEDS: insulin lispro 100 unit/1 mL SUBCUT ×4 (03:15→21:32)
[2023-05-21 04:32] LABS: Basophils % 0.3 %; Eosinophils # 0.2 10^3/uL (0.0-0.8); Hematocrit 34.1 % (36-47); Lymphocytes # 1.3 10^3/uL (0.8-4.8); Lymphocytes % 11.6 %; Mean Corpuscular HGB Conc 32.8 g/dL (30-55); Mean Corpuscular Hemoglobin 30.5 pg (27-33); Mean Corpuscular Volume 92.9 fl (85-98); Mean Platelet Volume 9.5 fL (7.4-10.4); Monocytes # 0.8 10^3/uL (0.2-0.9); Monocytes % 7.2 %; Neutrophils % 78.4 %; Nucleated Red Blood Cells % 0 %; Platelet Count 292 10^3/cmm (157-399); Red Blood Count 3.67 10^6/uL (3.85-5.65); Red Cell Distribution Width 12.3 % (12.1-15.1); White Blood Count 10.84 10^3/uL (3.29-11.43)
[2023-05-21 04:53] LABS: Alanine Aminotransferase 20 U/L (0-33); Albumin Level 2.9 g/dL (3.5-5.2); Alkaline Phosphatase 74 U/L (35-105); Anion Gap 14.9 (5-19); Aspartate Amino Transferase 11 U/L (0-32); Blood Urea Nitrogen 6 mg/dL (8-23); Calcium 7.9 mg/dL (8.5-10.5); Carbon Dioxide 22 mmol/L (22-29); Chloride 105 mmol/L (98-107); Globulin 2.3 g/dL (1.3-4.6); Glomerular Filtration Rate 123.4 mL/min (90-130); Glucose 185 mg/dL (65-115); Osmolality Calculated 288 mOsm/kg (285-295); Potassium 3.9 mmol/L (3.5-5.1); Sodium 138 mmol/L (136-145); Total Bilirubin 0.6 mg/dL (0.15-1.2); Total Protein 5.2 g/dL (6.6-8.7)
[2023-05-21 05:00] LABS: D Dimer 1.97 ug/mLFEU (0-0.59)
[2023-05-21] MEDS: lactated ringers 1,000 ML 75 ML IV ×2 (08:27→23:02)
[2023-05-21] MEDS: enoxaparin 40 mg/0.4 mL Syringe SUBCUT (09:27)
[2023-05-21] MEDS: pantoprazole 40 mg SDV IVP ×2 (09:27→17:47)
[2023-05-21 09:34] LABS: Glucose Point of Care 193 mg/dL (70-110)
[2023-05-21] MEDS: metoprolol tartrate 1 mg/1 mL SDV 5 mL 5 MG IVP ×2 (10:24→18:47)
[2023-05-21 11:17] LABS: Procalcitonin 0.46 ng/mL (0-0.5); Thyroid Stimulating Hormone 0.43 uIU/mL (0.27-4.20); Vitamin B12 1628 pg/mL (232-1245)
[2023-05-21 11:27] LABS: Iron 11 ug/dL (37-145); Percent Saturation 6.5 % (20-50); Total Iron Binding Capacity 168 mcg/dl; Unsaturated Iron Binding 157 ug/dL (112-347)
--- NOTE | 2023-05-21 12:01 | PC.SOCIAL ---
IMM Update pg 2 of IMM updated and reviewed w/ patient. Copy provided and copy dated, initialed and placed in chart.
--- NOTE | 2023-05-21 13:40 | P.PN_ITS ---
Subjective 2 Subjective: Patient seen and examined. Pain controlled. Still not passing flatus. Vitals/I&O/Wt Last Vital Signs Temp 98.5 F 05/21/23 11:34 Pulse 101 H 05/21/23 13:00 Resp 19 H 05/21/23 13:00 BP 179/89 05/21/23 13:00 Pulse Ox 94 05/21/23 13:00 O2 Del Method Room Air 05/21/23 13:00 O2 Flow Rate 2 05/20/23 20:00 FiO2 35 05/20/23 09:29 05/20/23 05/21/23 05/21/23 22:59 06:59 14:59 Intake Total 560 / 890.866 300 / 5410.874 6954.5 / 1017.5 Output Total 950 / 950 880 / 1830 Balance -390 / -59.134 -580 / -552.921 0479.5 / 1017.5 Weight last 48 hrs Weight 257 lb 14.4 oz Weight 251 lb Weight 235 lb Weight 230 lb Physical Exam 2 Narrative: General: No acute distress, awake alert and oriented x 3 Abdomen: Soft, nondistended, appropriately tender to palpation, no guarding rebound or masses Drain serosanguineous Incision intact without erythema or exudate Urinary Catheter Management: Jiménez: Cath Placed During This Visit: yes Reason for Continuing Indwelling Catheter: Accurate Measurement of Urinary Output in Critically Ill Patients Urinary Catheter Date of Insertion: 05/19/23 Urinary Catheter Time of Insertion: 21:40 Data 05/21/23 03:38 05/21/23 03:38 Micro: Microbiology 05/19/23 19:31 Urine Culture - Final Urine,Clean Catch A&P Assessment and plan (1) Perforated abdominal viscus: (2) History of colonoscopy: (3) Sepsis: Plan Postoperative day #1 status post exploratory laparotomy with extensive lysis of adhesions, right hemicolectomy and creation of omental flap following iatrogenic colon perforation during colonoscopy at an outside facility. Antibiotics Incentive spirometer use DC Jiménez Out of bed to chair 3 times daily Await return of bowel function Medical management per primary Attestations 2 Medical Necessity Statement*: Per primary Coding Level of Care Code Acute Code for Chg Fwd Diagnoses Perforated abdominal viscus R19.8 History of colonoscopy Z98.890 Sepsis A41.9
[2023-05-21 14:53] LABS: Glucose Point of Care 196 mg/dL (70-110)
--- NOTE | 2023-05-21 15:59 | PC.NURSE ---
Report called to Sharad. Patient and belongings taken to room 251-1.
--- NOTE | 2023-05-21 17:07 | PC.NURSE ---
Assumed care of pt at 1628 from BRENDA Salgado. Pt transferred to med surg from ICU.
--- NOTE | 2023-05-21 17:28 | P.PN_ITS ---
Subjective 2 Subjective: Hospital course, labs appreciated. Seen with daughter at bedside. Patient lying comfortably in bed. States pain is well-controlled. Remains on room air. Vitals appreciated for blood pressures to be running on the higher side. Has remained afebrile. Blood work appreciated Vitals/I&O/Wt Last Vital Signs Temp 98.8 F 05/21/23 16:52 Pulse 109 H 05/21/23 16:52 Resp 19 H 05/21/23 16:52 BP 196/94 05/21/23 16:52 Pulse Ox 96 05/21/23 16:52 O2 Del Method Room Air 05/21/23 16:52 O2 Flow Rate 2 05/20/23 20:00 FiO2 35 05/20/23 09:29 05/21/23 05/21/23 05/21/23 06:59 14:59 22:59 Intake Total 300 / 3836.394 1841.5 / 1267.5 1000 / 2267.5 Output Total 880 / 1830 1030 / 1030 Balance -580 / -325.945 6767.5 / 1267.5 -30 / 1237.5 Weight last 48 hrs Weight 116.981 kg Weight 113.852 kg Weight 106.594 kg Weight 104.326 kg Physical Exam 2 Narrative: Accompanied by family. Const: COMMON NORMALS: patient oriented x3 and alert GENERAL APPEARANCE: c ooperative and patient mechanically ventilated ORIENTATION/CONSCIOUSNESS: Yes awake HENMT: COMMON NORMALS: oropharynx normal Neck/C-Spine: COMMON NORMALS: no JVD Resp: COMMON NORMALS: normal respiratory effort and clear to auscultation bilaterally AUSCULTATION: clear to auscultation bilaterally Cardio: COMMON NORMALS: no JVD, regular rhythm, S1 normal heart sound present, S2 normal heart sound present and No murmurs present (Cardio) RHYTHM: regular rhythm HEART SOUNDS: S1 normal heart sound present and S2 normal heart sound present GI: COMMON NORMALS: Normal to inspection, nondistended, normoactive bowel sounds present, Soft to palpation and non-tender PALPATION: Yes Soft to palpation OTHER: Dressing over abdominal wound. TARYN drain, w serosang fluid. Extremity: COMMON NORMALS: no joint enlargement and no pedal edema OTHER: No swelling, erythema,. Mass or tenderness in the right groin. Neuro: COMMON NORMALS: patient oriented x3 and moves all extremities S ENSORIUM/ORIENTATION: Yes alert Skin: COMMON NORMALS: no rashes or lesions noted GENERAL SKIN EXAM: no rashes or lesions noted Urinary Catheter Management: Jiménez: Cath Placed During This Visit: yes, but has since been removed by the nurse Reason for Continuing Indwelling Catheter: Decision to DC Catheter Urinary Catheter Date of Insertion: 05/19/23 Urinary Catheter Time of Insertion: 21:40 Date Urinary Catheter Removed: 05/21/23 Time Urinary Catheter Discontinued: 16:30 Data 05/21/23 03:38 05/21/23 03:38 Micro: Microbiology 05/19/23 19:31 Urine Culture - Final Urine,Clean Catch A&P Assessment and plan (1) Perforated abdominal viscus: Postoperative day 1. Appreciate surgical recommendations. Tolerating pain well. Hemoglobin stable. Diet to be advanced as per surgical team. Currently TARYN drain in place. 30 cc drained overnight. Drain to be managed as per surgical team. Out of bed to chair. Incentive spirometry. Continue with IV hydration for now. Physical therapy evaluation. (2) Sepsis: Continue meropenem, vancomycin. Serosanguineous drainage noted in abdominal drain. Follow-up blood cultures. Urine culture. Sepsis secondary to perforated viscus, possible component of UTI. Without obstructive uropathy. (3) UTI (urinary tract infection): Possible UTI versus locally reactive change/Inflammation, continue empiric coverage with meropenem. Follow-up urine culture, blood culture. (4) Vascular abnormality: Will need follow-up as an outpatient. Discussed already with previous provider. Outpatient ultrasound. Plan Replete electrolytes. Hypertension: Uncontrolled hypertension, goal blood pressure less than 140/90 mmHg. Continue with hydralazine 10 mg every 4. Add metoprolol 5 mg every 4 hours as needed. Pain controlled. If needed will plan for clonidine patch. Diabetes: A1c 7. Continue with low-dose sliding scale. Would benefit from statin. Full code N.p.o. Lovenox for DVT prophylaxis Protonix for PUD prophylaxis Transfer to MedSurg floor. DC Jiménez. Attestations 2 Medical Necessity Statement*: Requires further hospitalization for postoperative care in setting of perforated abdominal viscus, sepsis, uncontrolled hypertension while bowel functions are awaited Diagnoses Perforated abdominal viscus R19.8 Sepsis A41.9 UTI (urinary tract infection) N39.0 Vascular abnormality I99.9
[2023-05-21] MEDS: hyDRALAzine 20 mg/mL INJ 1 mL 10 MG IVP (17:47)
[2023-05-21 18:40] LABS: Glucose Point of Care 180 mg/dL (70-110)
[2023-05-21 21:03] LABS: Glucose Point of Care 202 mg/dL (70-110)
--- NOTE | 2023-05-21 21:15 | USR_ITS ---
PROCEDURE INFORMATION: Exam: US Duplex Right Lower Extremity Arteries Or Arterial Bypass Grafts Exam date and time: 05/21/2023 7:20 AM Age: 67 years old Clinical indication: Abnormal findings; Abnormal imaging study of limbs; RT le; Prior surgery; Surgery date: 3-7 days post-operative; Surgery type: Unsure exactly what surgery but it appears as a RT pelvic drain. ; Additional info: R common iliac artery+vein - hypodensity on CT - aneurysm? , Assess for any abscess. TECHNIQUE: Imaging protocol: Right Real-time duplex scan of the arteries or arterial bypass grafts of the right lower extremity with 2-D christianson scale, color Doppler flow and spectral waveform analysis. Images documented and saved. COMPARISON: CT abdomen pelvis w con* [id number] 05/19/2023 7:58 PM FINDINGS: Right common femoral artery: No occlusion or significant stenosis. Normal waveform. No pseudoaneurysm in the inguinal region. Right calf/foot arteries: Right iliac arteries: The right visualized iliac arteries are patent. Soft tissues: No evidence of active pseudoaneurysm. [place] [id number] IMPRESSION: The right distal iliac arteries and the right [employer] are patent. No evidence of active pseudoaneurysm or hematoma.
[2023-05-22] VITALS (15 sets, daily range): BP systolic 138–192; BP diastolic 81–104; PULSE 93–107; RESP 16–19; TEMP 36.6–37.1; O2SAT 93–96
[2023-05-22] MEDS: hyDRALAzine 20 mg/mL INJ 1 mL 10 MG IVP ×4 (00:13→17:46)
[2023-05-22] MEDS: HYDROmorphone 1 mg/mL INJ 1 mL 0.5 MG IVP ×6 (00:54→23:59)
[2023-05-22] MEDS: meropenem 1,000 MG in sodium chloride 0.9% (plus) 50 ML 100 MG IV ×3 (02:43→17:45)
[2023-05-22 04:48] LABS: Glucose Point of Care 205 mg/dL (70-110)
[2023-05-22] MEDS: insulin lispro 100 unit/1 mL SUBCUT ×4 (05:02→23:10)
[2023-05-22] MEDS: metoprolol tartrate 1 mg/1 mL SDV 5 mL 5 MG IVP (05:14)
[2023-05-22 05:28] LABS: Basophils % 0.3 %; Eosinophils # 0.2 10^3/uL (0.0-0.8); Eosinophils % 1.3 %; Hematocrit 34.9 % (36-47); Lymphocytes # 1.1 10^3/uL (0.8-4.8); Lymphocytes % 8.9 %; Mean Corpuscular Hemoglobin 30.8 pg (27-33); Mean Corpuscular Volume 93.6 fl (85-98); Mean Platelet Volume 9.3 fL (7.4-10.4); Monocytes # 0.8 10^3/uL (0.2-0.9); Monocytes % 6.7 %; Neutrophils # 9.91 10^3/uL (1.8-7.7); Neutrophils % 82.5 %; Nucleated Red Blood Cells % 0 %; Platelet Count 349 10^3/cmm (157-399); Red Blood Count 3.73 10^6/uL (3.85-5.65); Red Cell Distribution Width 12.3 % (12.1-15.1)
[2023-05-22 05:55] LABS: Magnesium 1.8 mg/dL (1.7-2.3)
[2023-05-22 05:56] LABS: Alanine Aminotransferase 15 U/L (0-33); Albumin Level 2.9 g/dL (3.5-5.2); Alkaline Phosphatase 97 U/L (35-105); Anion Gap 18.5 (5-19); Aspartate Amino Transferase 10 U/L (0-32); Blood Urea Nitrogen 10 mg/dL (8-23); Calcium 9.1 mg/dL (8.5-10.5); Carbon Dioxide 20 mmol/L (22-29); Chloride 104 mmol/L (98-107); Chol HDL Ratio 5.06 mg/dL (0.0-4.40); Cholesterol 157 mg/dL (0-200); Creatinine Clr Calc Pharmacy 90.7084; Globulin 3.4 g/dL (1.3-4.6); Glomerular Filtration Rate 123.4 mL/min (90-130); Glucose 209 mg/dL (65-115); HDL Cholesterol 31 mg/dL (60-100); LDL Cholesterol Calculated 103 mg/dL (50-129); Osmolality Calculated 293 mOsm/kg (285-295); Potassium 3.5 mmol/L (3.5-5.1); Sodium 139 mmol/L (136-145); Total Bilirubin 0.6 mg/dL (0.15-1.2); Total Protein 6.3 g/dL (6.6-8.7); Triglycerides 117 mg/dL (0-150); VLDL Cholestrol Calculation 23 mg/dL (0-30)
[2023-05-22 06:13] LABS: Folate Level 10.6 ng/mL (4.8-37.3)
[2023-05-22] MEDS: enoxaparin 40 mg/0.4 mL Syringe SUBCUT (08:58)
--- NOTE | 2023-05-22 09:29 | PC.CHAP ---
Pastoral Care Encounter/Spiritual Assessment Type of Contact [] Declined internal controls analyst visit [] Patient/Family/Request visit [] Outpatient visit [] Follow-up visit [] Physician referral [] Code/Alert [x] Routine visit [] Staff referral [] Actively dying [] Patient sleeping [] Family support [] [] Out of room [] Palliative care [] [] Receiving care in room [] Pre-surgical visit [] Trauma [] Long length of stay [] ICU visit [] Other: Relational/Emotional Strength [x] Patient feels connected with others/family/visitors/staff [] Distress [] Loneliness/isolation [] Abandonment Spirituality of Patient [x] Person of Le [] Attends Taoism of their Le [x] Believes in Prayer [] Reads Bible or Zoroastrian materials [] There are Spiritual issues to be addressed Conduit Mechanic Interventions [x] Prayer [x] Active listening [] Non-anxious presence [x] Spiritual/emotional support [] Crisis/trauma care [] Spiritual counseling [] Bereavement support [] Provided bereavement packet [] Provided Bible/devotional materials [] Provided toy/stuffed animal, coloring book to patient or family member [] Provided Communion [] Anointing/[place] [] Salvation [x] Completed spiritual assessment [] Other: Impact on Illness or Injury [] Angry [] Fearful [] Anxious [] Often cries [] Exhaustion [] Unable to work [] Unable to attend scientologist [] Unable to walk/stand [] Unable to read [] Unable to drive [] Unable to eat/drink [] Unable to sleep [] Unable to be with family [] Patient intubated [] Other: Summary Time spent with patient 5 min
[2023-05-22 09:37] LABS: Glucose Point of Care 225 mg/dL (70-110)
[2023-05-22] MEDS: cloNIDine 0.1 mg/24 hr Patch 1 PATCH TRANSDERMA (10:52)
[2023-05-22] MEDS: pantoprazole 40 mg SDV IVP ×2 (10:53→17:46)
--- NOTE | 2023-05-22 13:11 | P.PN_ITS ---
Subjective 2 Subjective: No acute events overnight. Seen on [facility] floor today. Patient sat up in the chair for an hour today. Still not ambulating. NG tube in place to wall suction. Patient still awaiting bowel movements. Not passing flatus. No nausea or vomiting but is having dyspepsia. States pain is well-controlled. TARYN tube drain in place. 50 cc in last 24 hours. Vitals/I&O/Wt Last Vital Signs Temp 98.6 F 05/22/23 11:32 Pulse 103 H 05/22/23 11:49 Resp 18 05/22/23 11:49 BP 163/99 05/22/23 11:32 Pulse Ox 95 05/22/23 11:49 O2 Del Method Room Air 05/22/23 11:49 O2 Flow Rate 2 05/20/23 20:00 FiO2 35 05/20/23 09:29 05/21/23 05/22/23 05/22/23 22:59 06:59 14:59 Intake Total 2050 / 3317.5 577.5 / 3895.0 50 / 50 Output Total 1040 / 1040 560 / 1600 Balance 1010 / 2277.5 17.5 / 2295.0 50 / 50 Weight last 48 hrs Weight 108.363 kg Weight 116.981 kg Physical Exam 2 Narrative: Accompanied by family. Const: COMMON NORMALS: patient oriented x3 and alert GENERAL APPEARANCE: c ooperative and patient mechanically ventilated ORIENTATION/CONSCIOUSNESS: Yes awake HENMT: COMMON NORMALS: oropharynx normal Neck/C-Spine: COMMON NORMALS: no JVD Resp: COMMON NORMALS: normal respiratory effort and clear to auscultation bilaterally AUSCULTATION: clear to auscultation bilaterally Cardio: COMMON NORMALS: no JVD, regular rhythm, S1 normal heart sound present, S2 normal heart sound present and No murmurs present (Cardio) RHYTHM: regular rhythm HEART SOUNDS: S1 normal heart sound present and S2 normal heart sound present GI: COMMON NORMALS: Normal to inspection, nondistended, normoactive bowel sounds present, Soft to palpation and non-tender PALPATION: Yes Soft to palpation OTHER: Dressing over abdominal wound. TARYN drain, w serosang fluid. Extremity: COMMON NORMALS: no joint enlargement and no pedal edema OTHER: No swelling, erythema,. Mass or tenderness in the right groin. Neuro: COMMON NORMALS: patient oriented x3 and moves all extremities S ENSORIUM/ORIENTATION: Yes alert Skin: COMMON NORMALS: no rashes or lesions noted GENERAL SKIN EXAM: no rashes or lesions noted Urinary Catheter Management: Jiménez: Cath Placed During This Visit: yes, but has since been removed by the nurse Reason for Continuing Indwelling Catheter: Decision to DC Catheter Urinary Catheter Date of Insertion: 05/19/23 Urinary Catheter Time of Insertion: 21:40 Date Urinary Catheter Removed: 05/21/23 Time Urinary Catheter Discontinued: 16:30 Data 05/22/23 05:06 05/22/23 05:06 Micro: Microbiology 05/20/23 10:17 Blood Culture - Preliminary Blood 05/20/23 10:08 Blood Culture - Preliminary Blood 05/19/23 19:31 Urine Culture - Final Urine,Clean Catch A&P Assessment and plan (1) Perforated abdominal viscus: Postoperative day 1. Appreciate surgical recommendations. Tolerating pain well. Hemoglobin stable. Diet to be advanced as per surgical team. Currently TARYN drain in place. 30 cc drained overnight. Drain to be managed as per surgical team. Out of bed to chair. Incentive spirometry. Continue with IV hydration for now. Physical therapy evaluation. (2) Sepsis: Continue meropenem, vancomycin. Serosanguineous drainage noted in abdominal drain. Follow-up blood cultures. Urine culture. Sepsis secondary to perforated viscus, possible component of UTI. Without obstructive uropathy. (3) UTI (urinary tract infection): Possible UTI versus locally reactive change/Inflammation, continue empiric coverage with meropenem. Follow-up urine culture, blood culture. (4) Vascular abnormality: Will need follow-up as an outpatient. Discussed already with previous provider. Outpatient ultrasound. Plan Replete electrolytes. Hypertension: Uncontrolled hypertension, goal blood pressure less than 140/90 mmHg. Continue with hydralazine 10 mg every 6. Add metoprolol 5 mg every 4 hours as needed. Pain controlled. If needed will plan for clonidine patch. Diabetes: A1c 7. Continue with low-dose sliding scale. Would benefit from statin. Full code N.p.o. Lovenox for DVT prophylaxis Protonix for PUD prophylaxis Plan for the day: Await bowel functions. Continue with TARYN drain and NG tube management as per surgical team. Continue with current IV antibiotics for overall 5 days postoperatively. Follow-up blood cultures. Blood pressure is elevated. Goal blood pressure less than 140/90 mmHg. Continue with IV hydralazine 10 mg IV every 6 hours, metoprolol 5 mg every 4 hours as needed for heart rate of more than 110 bpm. Add clonidine 0.1 mg patch. Continue with gentle IV hydration at 75 cc/h. Out of bed to chair. Encouraged patient to ambulate. Discharge plan: Plan to discharge home with home health for physical therapy and wound care once patient is cleared by surgery and achieves bowel functions. Attestations 2 Medical Necessity Statement*: Requires further hospitalization for postoperative care, post recent lysis and perforated abdominal viscus repair in a patient with uncontrolled hypertension Diagnoses Perforated abdominal viscus R19.8 Sepsis A41.9 UTI (urinary tract infection) N39.0 Vascular abnormality I99.9
[2023-05-22] MEDS: vancomycin 1,000 MG in sodium chloride 0.9% 250 ML 250 MG IV ×2 (15:33→23:10)
[2023-05-22] MEDS: lactated ringers 1,000 ML 75 ML IV (15:41)
--- NOTE | 2023-05-22 15:41 | P.PN_ITS ---
Subjective 2 Subjective: Patient seen and examined. She has belching but has not passed flatus yet. She is pulling 1500 on her incentive spirometer Vitals/I&O/Wt Last Vital Signs Temp 98.6 F 05/22/23 11:32 Pulse 103 H 05/22/23 11:49 Resp 16 05/22/23 15:34 BP 163/99 05/22/23 11:32 Pulse Ox 95 05/22/23 11:49 O2 Del Method Room Air 05/22/23 11:49 O2 Flow Rate 2 05/20/23 20:00 FiO2 35 05/20/23 09:29 05/22/23 05/22/23 05/22/23 06:59 14:59 22:59 Intake Total 577.5 / 3895.0 50 / 50 722.5 / 772.5 Output Total 560 / 1600 Balance 17.5 / 2295.0 50 / 50 722.5 / 772.5 Weight last 48 hrs Weight 238 lb 14.4 oz Weight 257 lb 14.4 oz Physical Exam 2 Narrative: General: No acute distress, awake alert and oriented x 3 Abdomen: Soft, nondistended, appropriately tender to palpation, no guarding rebound or masses Drain serosanguineous Incision intact without erythema or exudate Urinary Catheter Management: Jiménez: Cath Placed During This Visit: yes, but has since been removed by the nurse Reason for Continuing Indwelling Catheter: Decision to DC Catheter Urinary Catheter Date of Insertion: 05/19/23 Urinary Catheter Time of Insertion: 21:40 Date Urinary Catheter Removed: 05/21/23 Time Urinary Catheter Discontinued: 16:30 Data 05/22/23 05:06 05/22/23 05:06 Micro: Microbiology 05/20/23 10:17 Blood Culture - Preliminary Blood 05/20/23 10:08 Blood Culture - Preliminary Blood A&P Assessment and plan (1) Perforated abdominal viscus: (2) History of colonoscopy: (3) Sepsis: Plan Postoperative day #2 status post exploratory laparotomy with extensive lysis of adhesions, right hemicolectomy and creation of omental flap following iatrogenic colon perforation during colonoscopy at an outside facility. Antibiotics Incentive spirometer use Out of bed to chair 3 times daily Await return of bowel function Medical management per primary Attestations 2 Medical Necessity Statement*: Per primary Coding Level of Care Code Acute Code for Chg Fwd Diagnoses Perforated abdominal viscus R19.8 History of colonoscopy Z98.890 Sepsis A41.9
[2023-05-22 16:11] LABS: Glucose Point of Care 152 mg/dL (70-110)
[2023-05-22 21:08] LABS: Glucose Point of Care 181 mg/dL (70-110)
[2023-05-23] VITALS (12 sets, daily range): BP systolic 157–191; BP diastolic 75–99; PULSE 79–113; RESP 16–20; TEMP 36.4–37.3; O2SAT 95–100
[2023-05-23] MEDS: hyDRALAzine 20 mg/mL INJ 1 mL 10 MG IVP ×5 (00:01→21:32)
[2023-05-23] MEDS: meropenem 1,000 MG in sodium chloride 0.9% (plus) 50 ML 100 MG IV ×3 (01:23→17:35)
[2023-05-23] MEDS: HYDROmorphone 1 mg/mL INJ 1 mL 0.5 MG IVP ×5 (04:10→20:49)
[2023-05-23 04:56] LABS: Glucose Point of Care 177 mg/dL (70-110)
[2023-05-23] MEDS: insulin lispro 100 unit/1 mL SUBCUT ×3 (05:14→17:35)
[2023-05-23] MEDS: vancomycin 1,000 MG in sodium chloride 0.9% 250 ML 250 MG IV ×3 (06:20→22:20)
[2023-05-23 06:48] LABS: Basophils % 0.3 %; Eosinophils # 0.1 10^3/uL (0.0-0.8); Hematocrit 36.5 % (36-47); Lymphocytes # 1.2 10^3/uL (0.8-4.8); Lymphocytes % 10.1 %; Mean Corpuscular HGB Conc 32.6 g/dL (30-55); Mean Corpuscular Hemoglobin 30.2 pg (27-33); Mean Corpuscular Volume 92.6 fl (85-98); Monocytes # 0.9 10^3/uL (0.2-0.9); Monocytes % 7.5 %; Neutrophils % 80.4 %; Nucleated Red Blood Cells % 0 %; Platelet Count 391 10^3/cmm (157-399); Red Blood Count 3.94 10^6/uL (3.85-5.65); Red Cell Distribution Width 12.5 % (12.1-15.1); White Blood Count 11.45 10^3/uL (3.29-11.43)
[2023-05-23 07:05] LABS: Alanine Aminotransferase 17 U/L (0-33); Albumin Level 2.6 g/dL (3.5-5.2); Alkaline Phosphatase 112 U/L (35-105); Anion Gap 15.1 (5-19); Aspartate Amino Transferase 15 U/L (0-32); Blood Urea Nitrogen 12 mg/dL (8-23); Calcium 8.6 mg/dL (8.5-10.5); Carbon Dioxide 21 mmol/L (22-29); Chloride 106 mmol/L (98-107); Globulin 3.3 g/dL (1.3-4.6); Glomerular Filtration Rate 123.4 mL/min (90-130); Glucose 236 mg/dL (65-115); Osmolality Calculated 295 mOsm/kg (285-295); Potassium 3.1 mmol/L (3.5-5.1); Sodium 139 mmol/L (136-145); Total Bilirubin 0.4 mg/dL (0.15-1.2); Total Protein 5.9 g/dL (6.6-8.7)
[2023-05-23 07:10] LABS: Magnesium 1.7 mg/dL (1.7-2.3)
[2023-05-23] MEDS: pantoprazole 40 mg SDV IVP ×2 (07:58→17:34)
[2023-05-23] MEDS: enoxaparin 40 mg/0.4 mL Syringe SUBCUT (07:58)
[2023-05-23 09:29] LABS: Glucose Point of Care 183 mg/dL (70-110)
[2023-05-23] MEDS: lidocaine 1% 5 ML in potassium chloride premix 100 ML 26.25 ML IV ×2 (10:09→15:53)
[2023-05-23] MEDS: cloNIDine 0.2 mg/24 hr Patch 1 PATCH TRANSDERMA (11:51)
--- NOTE | 2023-05-23 12:09 | PC.SOCIAL ---
Pg 2 IMM Explained to pt Pg 2 IMM. No questions voiced. Provided pt a copy. Initialed, dated, & timed a copy & placed in chart.
[2023-05-23 12:12] LABS: Glucose Point of Care 195 mg/dL (70-110)
--- NOTE | 2023-05-23 13:23 | P.PN_ITS ---
Subjective 2 Subjective: No acute events overnight. Patient walked in the hallway today. Without any difficulty. Sitting up in chair. Passing flatus. No bowel movements. Continue to have NG tube not on suction anymore. Saturating well on room air. Blood pressures still higher. Vitals/I&O/Wt Last Vital Signs Temp 99.0 F 05/23/23 11:28 Pulse 79 05/23/23 11:28 Resp 16 05/23/23 11:28 BP 182/99 05/23/23 11:28 Pulse Ox 100 05/23/23 11:28 O2 Del Method Room Air 05/23/23 11:28 O2 Flow Rate 2 05/20/23 20:00 FiO2 35 05/20/23 09:29 05/22/23 05/23/23 05/23/23 22:59 06:59 14:59 Intake Total 1022.5 / 1072.5 875 / 1947.5 300 / 300 Output Total 30 / 30 Balance 1022.5 / 1072.5 845 / 1917.5 300 / 300 Weight last 48 hrs Weight 105.007 kg Weight 108.363 kg Physical Exam 2 Narrative: Accompanied by family. Const: COMMON NORMALS: patient oriented x3 and alert GENERAL APPEARANCE: c ooperative and patient mechanically ventilated ORIENTATION/CONSCIOUSNESS: Yes awake HENMT: COMMON NORMALS: oropharynx normal Neck/C-Spine: COMMON NORMALS: no JVD Resp: COMMON NORMALS: normal respiratory effort and clear to auscultation bilaterally AUSCULTATION: clear to auscultation bilaterally Cardio: COMMON NORMALS: no JVD, regular rhythm, S1 normal heart sound present, S2 normal heart sound present and No murmurs present (Cardio) RHYTHM: regular rhythm HEART SOUNDS: S1 normal heart sound present and S2 normal heart sound present GI: COMMON NORMALS: Normal to inspection, nondistended, normoactive bowel sounds present, Soft to palpation and non-tender PALPATION: Yes Soft to palpation OTHER: Dressing over abdominal wound. TARYN drain, w serosang fluid. Extremity: COMMON NORMALS: no joint enlargement and no pedal edema OTHER: No swelling, erythema,. Mass or tenderness in the right groin. Neuro: COMMON NORMALS: patient oriented x3 and moves all extremities S ENSORIUM/ORIENTATION: Yes alert Skin: COMMON NORMALS: no rashes or lesions noted GENERAL SKIN EXAM: no rashes or lesions noted Urinary Catheter Management: Jiménez: Cath Placed During This Visit: yes, but has since been removed by the nurse Reason for Continuing Indwelling Catheter: Decision to DC Catheter Urinary Catheter Date of Insertion: 05/19/23 Urinary Catheter Time of Insertion: 21:40 Date Urinary Catheter Removed: 05/21/23 Time Urinary Catheter Discontinued: 16:30 Data 05/23/23 06:34 05/23/23 06:34 Micro: Microbiology 05/20/23 10:17 Blood Culture - Preliminary Blood 05/20/23 10:08 Blood Culture - Preliminary Blood A&P Assessment and plan (1) Perforated abdominal viscus: Postoperative day 1. Appreciate surgical recommendations. Tolerating pain well. Hemoglobin stable. Diet to be advanced as per surgical team. Currently TARYN drain in place. 30 cc drained overnight. Drain to be managed as per surgical team. Out of bed to chair. Incentive spirometry. Continue with IV hydration for now. Physical therapy evaluation. (2) Sepsis: Continue meropenem, vancomycin. Serosanguineous drainage noted in abdominal drain. Follow-up blood cultures. Urine culture. Sepsis secondary to perforated viscus, possible component of UTI. Without obstructive uropathy. (3) UTI (urinary tract infection): Possible UTI versus locally reactive change/Inflammation, continue empiric coverage with meropenem. Follow-up urine culture, blood culture. (4) Vascular abnormality: Will need follow-up as an outpatient. Discussed already with previous provider. Outpatient ultrasound. Plan Replete electrolytes. Hypertension: Uncontrolled hypertension, goal blood pressure less than 140/90 mmHg. Continue with hydralazine 10 mg every 6. Add metoprolol 5 mg every 4 hours as needed. Pain controlled. If needed will plan for clonidine patch. Diabetes: A1c 7. Continue with low-dose sliding scale. Would benefit from statin. Full code N.p.o. Lovenox for DVT prophylaxis Protonix for PUD prophylaxis Plan for the day: Passing flatus today. TARYN drain and NG tube management as per surgical team. Continue to ambulate. Replete electrolytes. Target potassium around 4. Continue IV antibiotics to finish A 5-day course postoperatively. Blood pressure continues to be elevated. Continue with IV hydralazine scheduled and IV metoprolol as needed. Increase clonidine to 0.2 daily. Discharge plan: Plan to discharge home with home health for physical therapy and wound care once patient is cleared by surgery and achieves bowel functions. Attestations 2 Medical Necessity Statement*: Requires further hospitalization for management of viscus perforation postoperative care while bowel functions are awaited, uncontrolled hypertension Diagnoses Perforated abdominal viscus R19.8 Sepsis A41.9 UTI (urinary tract infection) N39.0 Vascular abnormality I99.9
--- NOTE | 2023-05-23 14:15 | P.PN_ITS ---
Subjective 2 Subjective: Examined. She is now passing flatus. Pain controlled Vitals/I&O/Wt Last Vital Signs Temp 98 F 05/24/23 12:00 Pulse 103 H 05/24/23 12:00 Resp 16 05/24/23 12:23 BP 182/71 05/24/23 12:00 Pulse Ox 98 05/24/23 12:00 O2 Del Method Room Air 05/24/23 09:15 O2 Flow Rate 2 05/20/23 20:00 FiO2 35 05/20/23 09:29 05/23/23 05/24/23 05/24/23 22:59 06:59 14:59 Intake Total 845 / 1675 1000 / 2675 938.75 / 938.75 Output Total 90 / 90 125 / 125 Balance 845 / 1675 910 / 2585 813.75 / 813.75 Weight last 48 hrs Weight 233 lb 9 oz Weight 231 lb 8 oz Physical Exam 2 Narrative: General: No acute distress, awake alert and oriented x 3 Abdomen: Soft, nondistended, appropriately tender to palpation, no guarding rebound or masses Drain serosanguineous Incision intact without erythema or exudate Urinary Catheter Management: Jiménez: Cath Placed During This Visit: yes, but has since been removed by the nurse Reason for Continuing Indwelling Catheter: Decision to DC Catheter Urinary Catheter Date of Insertion: 05/19/23 Urinary Catheter Time of Insertion: 21:40 Date Urinary Catheter Removed: 05/21/23 Time Urinary Catheter Discontinued: 16:30 Data 05/24/23 04:26 05/24/23 04:26 A&P Assessment and plan (1) Perforated abdominal viscus: (2) History of colonoscopy: (3) Sepsis: Plan Postoperative day #3 status post exploratory laparotomy with extensive lysis of adhesions, right hemicolectomy and creation of omental flap following iatrogenic colon perforation during colonoscopy at an outside facility. Antibiotics Incentive spirometer use Out of bed to chair 3 times daily DC NG tube Clear liquid diet Medical management per primary Attestations 2 Medical Necessity Statement*: Her primary Coding Level of Care Code Acute Code for Chg Fwd Diagnoses Perforated abdominal viscus R19.8 History of colonoscopy Z98.890 Sepsis A41.9
[2023-05-23] MEDS: lactated ringers 1,000 ML 75 ML IV (15:51)
[2023-05-23 16:46] LABS: Glucose Point of Care 188 mg/dL (70-110)
[2023-05-23 20:34] LABS: Glucose Point of Care 144 mg/dL (70-110)
[2023-05-24] VITALS (16 sets, daily range): BP systolic 143–187; BP diastolic 71–82; PULSE 88–103; RESP 14–22; TEMP 36.6–37.1; O2SAT 95–98
[2023-05-24] MEDS: meropenem 1,000 MG in sodium chloride 0.9% (plus) 50 ML 100 MG IV ×3 (01:22→17:29)
[2023-05-24] MEDS: HYDROmorphone 1 mg/mL INJ 1 mL 0.5 MG IVP ×5 (02:02→21:22)
[2023-05-24] MEDS: hyDRALAzine 20 mg/mL INJ 1 mL 10 MG IVP ×2 (02:03→10:10)
[2023-05-24 04:54] LABS: Basophils % 0.3 %; Eosinophils # 0.5 10^3/uL (0.0-0.8); Eosinophils % 4.8 %; Lymphocytes # 1.7 10^3/uL (0.8-4.8); Lymphocytes % 17.6 %; Mean Corpuscular HGB Conc 32.4 g/dL (30-55); Mean Corpuscular Hemoglobin 30.7 pg (27-33); Mean Corpuscular Volume 94.6 fl (85-98); Mean Platelet Volume 9.1 fL (7.4-10.4); Monocytes # 0.8 10^3/uL (0.2-0.9); Monocytes % 8.7 %; Neutrophils # 6.51 10^3/uL (1.8-7.7); Nucleated Red Blood Cells % 0 %; Platelet Count 384 10^3/cmm (157-399); Red Blood Count 3.49 10^6/uL (3.85-5.65); Red Cell Distribution Width 12.8 % (12.1-15.1); White Blood Count 9.58 10^3/uL (3.29-11.43)
[2023-05-24 05:08] LABS: Chloride 107 mmol/L (98-107); Potassium 3.6 mmol/L (3.5-5.1); Sodium 140 mmol/L (136-145)
[2023-05-24 05:16] LABS: Magnesium 1.7 mg/dL (1.7-2.3)
[2023-05-24 05:18] LABS: Glucose Point of Care 170 mg/dL (70-110)
[2023-05-24] MEDS: insulin lispro 100 unit/1 mL SUBCUT ×4 (05:21→22:33)
[2023-05-24 05:35] LABS: Alanine Aminotransferase 15 U/L (0-33); Albumin Level 2.5 g/dL (3.5-5.2); Alkaline Phosphatase 62 U/L (35-105); Anion Gap 14.6 (5-19); Aspartate Amino Transferase 12 U/L (0-32); Blood Urea Nitrogen 11 mg/dL (8-23); Calcium 8.5 mg/dL (8.5-10.5); Carbon Dioxide 22 mmol/L (22-29); Globulin 2.7 g/dL (1.3-4.6); Glomerular Filtration Rate 159.7 mL/min (90-130); Glucose 169 mg/dL (65-115); Osmolality Calculated 293 mOsm/kg (285-295); Total Bilirubin 0.3 mg/dL (0.15-1.2); Total Protein 5.2 g/dL (6.6-8.7)
[2023-05-24] MEDS: vancomycin 1,000 MG in sodium chloride 0.9% 250 ML 250 MG IV ×3 (06:34→22:26)
[2023-05-24] MEDS: lactated ringers 1,000 ML 75 ML IV (08:03)
[2023-05-24] MEDS: enoxaparin 40 mg/0.4 mL Syringe SUBCUT (08:04)
[2023-05-24] MEDS: pantoprazole 40 mg SDV IVP ×2 (08:05→17:29)
[2023-05-24] MEDS: amlodipine 10 mg Tablet PO (10:09)
--- NOTE | 2023-05-24 10:35 | P.PN_ITS ---
Subjective 2 Subjective: Patient seen and examined. Tolerating clear liquid diet. Pain controlled Vitals/I&O/Wt Last Vital Signs Temp 98 F 05/24/23 12:00 Pulse 103 H 05/24/23 12:00 Resp 16 05/24/23 12:23 BP 182/71 05/24/23 12:00 Pulse Ox 98 05/24/23 12:00 O2 Del Method Room Air 05/24/23 09:15 O2 Flow Rate 2 05/20/23 20:00 FiO2 35 05/20/23 09:29 05/23/23 05/24/23 05/24/23 22:59 06:59 14:59 Intake Total 845 / 1675 1000 / 2675 938.75 / 938.75 Output Total 90 / 90 125 / 125 Balance 845 / 1675 910 / 2585 813.75 / 813.75 Weight last 48 hrs Weight 233 lb 9 oz Weight 231 lb 8 oz Physical Exam 2 Narrative: General: No acute distress, awake alert and oriented x 3 Abdomen: Soft, nondistended, appropriately tender to palpation, no guarding rebound or masses Drain serosanguineous output increased from 10 cc to 90 cc in the last 24 hours Incision intact without erythema or exudate Urinary Catheter Management: Jiménez: Cath Placed During This Visit: yes, but has since been removed by the nurse Reason for Continuing Indwelling Catheter: Decision to DC Catheter Urinary Catheter Date of Insertion: 05/19/23 Urinary Catheter Time of Insertion: 21:40 Date Urinary Catheter Removed: 05/21/23 Time Urinary Catheter Discontinued: 16:30 Data 05/24/23 04:26 05/24/23 04:26 A&P Assessment and plan (1) Perforated abdominal viscus: (2) History of colonoscopy: (3) Sepsis: Plan Postoperative day #3 status post exploratory laparotomy with extensive lysis of adhesions, right hemicolectomy and creation of omental flap following iatrogenic colon perforation during colonoscopy at an outside facility. Antibiotics Incentive spirometer use Out of bed to chair 3 times daily Full liquid diet Medical management per primary Attestations 2 Medical Necessity Statement*: Per primary Coding Level of Care Code Acute Code for Chg Fwd Diagnoses Perforated abdominal viscus R19.8 History of colonoscopy Z98.890 Sepsis A41.9
[2023-05-24 11:06] LABS: Glucose Point of Care 170 mg/dL (70-110)
--- NOTE | 2023-05-24 15:06 | P.PN_ITS ---
Subjective 2 Subjective: Patient continues to pass flatus. NG tube removed yesterday. Did have small bowel movement late last night. Tolerating full liquid diet. Seen with daughter at bedside. States she is feeling well. Denies any nausea or vomiting. Continues to be ambulatory. Vitals/I&O/Wt Last Vital Signs Temp 98 F 05/24/23 12:00 Pulse 103 H 05/24/23 12:00 Resp 16 05/24/23 12:23 BP 182/71 05/24/23 12:00 Pulse Ox 98 05/24/23 12:00 O2 Del Method Room Air 05/24/23 09:15 O2 Flow Rate 2 05/20/23 20:00 FiO2 35 05/20/23 09:29 05/24/23 05/24/23 05/24/23 06:59 14:59 22:59 Intake Total 1000 / 2675 938.75 / 938.75 Output Total 90 / 90 175 / 175 Balance 910 / 2585 763.75 / 763.75 Weight last 48 hrs Weight 105.942 kg Weight 105.007 kg Physical Exam 2 Narrative: Accompanied by family. Const: COMMON NORMALS: patient oriented x3 and alert GENERAL APPEARANCE: c ooperative and patient mechanically ventilated ORIENTATION/CONSCIOUSNESS: Yes awake HENMT: COMMON NORMALS: oropharynx normal Neck/C-Spine: COMMON NORMALS: no JVD Resp: COMMON NORMALS: normal respiratory effort and clear to auscultation bilaterally AUSCULTATION: clear to auscultation bilaterally Cardio: COMMON NORMALS: no JVD, regular rhythm, S1 normal heart sound present, S2 normal heart sound present and No murmurs present (Cardio) RHYTHM: regular rhythm HEART SOUNDS: S1 normal heart sound present and S2 normal heart sound present GI: COMMON NORMALS: Normal to inspection, nondistended, normoactive bowel sounds present, Soft to palpation and non-tender PALPATION: Yes Soft to palpation OTHER: Dressing over abdominal wound. TARYN drain, w serosang fluid. Extremity: COMMON NORMALS: no joint enlargement and no pedal edema OTHER: No swelling, erythema,. Mass or tenderness in the right groin. Neuro: COMMON NORMALS: patient oriented x3 and moves all extremities S ENSORIUM/ORIENTATION: Yes alert Skin: COMMON NORMALS: no rashes or lesions noted GENERAL SKIN EXAM: no rashes or lesions noted Urinary Catheter Management: Jiménez: Cath Placed During This Visit: yes, but has since been removed by the nurse Reason for Continuing Indwelling Catheter: Decision to DC Catheter Urinary Catheter Date of Insertion: 05/19/23 Urinary Catheter Time of Insertion: 21:40 Date Urinary Catheter Removed: 05/21/23 Time Urinary Catheter Discontinued: 16:30 Data 05/24/23 04:26 05/24/23 04:26 A&P Assessment and plan (1) Perforated abdominal viscus: Postoperative day 4. Appreciate surgical recommendations. Pain well-tolerated. Hemoglobin stable. Continue with full liquid diet for now as per surgical team. NG tube removed. TARYN drain to be removed as per surgical team. Out of bed to chair, incentive spirometry. Stop IV fluids as patient is tolerating oral now. (2) Sepsis: Continue meropenem, vancomycin to finish a 5-day course postoperatively. Serosanguineous drainage noted in abdominal drain. Follow-up blood cultures. Urine culture. Sepsis secondary to perforated viscus, possible component of UTI. Without obstructive uropathy. (3) UTI (urinary tract infection): Possible UTI versus locally reactive change/Inflammation, continue empiric coverage with meropenem. Follow-up urine culture, blood culture. (4) Vascular abnormality: Will need follow-up as an outpatient. Discussed already with previous provider. Outpatient ultrasound. Plan Replete electrolytes. Hypertension: Uncontrolled hypertension. Goal blood pressure less than 140/90 mmHg. Patient tolerating oral diet now. Start on amlodipine 10 mg oral daily and losartan 50 mg oral daily. Continue with hydralazine 10 mg IV every 6 hours as needed for systolic blood pressure of more than 170 mmHg. Continue with clonidine patch 0.2 mg for now. Will uptitrate as for goal blood pressures. Diabetes: A1c 7. Continue with low-dose sliding scale. Would benefit from statin but gives history of intolerance with statins in the past. Discussed about possible need for fenofibrate. Patient will discuss further with her primary care provider. Full code Full liquid diet. Lovenox for DVT prophylaxis Protonix for PUD prophylaxis Attestations 2 Medical Necessity Statement*: Requires further hospitalization for postoperative care and the patient was admitted for perforated viscus while diet is advanced and TARYN drain is removed, uncontrolled hypertension Diagnoses Perforated abdominal viscus R19.8 Sepsis A41.9 UTI (urinary tract infection) N39.0 Vascular abnormality I99.9
[2023-05-24] MEDS: losartan 50 mg Tablet PO (16:06)
[2023-05-24 17:13] LABS: Glucose Point of Care 163 mg/dL (70-110)
[2023-05-24 22:37] LABS: Glucose Point of Care 154 mg/dL (70-110)
[2023-05-25] VITALS (7 sets, daily range): BP systolic 135–182; BP diastolic 73–90; PULSE 81–93; RESP 16–18; TEMP 36.8–37; O2SAT 95–98
[2023-05-25] MEDS: HYDROmorphone 1 mg/mL INJ 1 mL 0.5 MG IVP ×2 (02:26→08:35)
[2023-05-25 04:30] LABS: Glucose Point of Care 143 mg/dL (70-110)
[2023-05-25] MEDS: insulin lispro 100 unit/1 mL SUBCUT ×2 (04:55→12:39)
[2023-05-25 05:23] LABS: Basophils % 0.5 %; Eosinophils # 0.5 10^3/uL (0.0-0.8); Eosinophils % 5.8 %; Lymphocytes # 1.8 10^3/uL (0.8-4.8); Lymphocytes % 21.2 %; Mean Corpuscular HGB Conc 32.6 g/dL (30-55); Mean Corpuscular Hemoglobin 30.5 pg (27-33); Mean Corpuscular Volume 93.7 fl (85-98); Mean Platelet Volume 9.1 fL (7.4-10.4); Monocytes # 0.8 10^3/uL (0.2-0.9); Monocytes % 9.1 %; Neutrophils # 5.42 10^3/uL (1.8-7.7); Neutrophils % 62.4 %; Nucleated Red Blood Cells % 0 %; Platelet Count 383 10^3/cmm (157-399); Red Blood Count 3.31 10^6/uL (3.85-5.65); Red Cell Distribution Width 12.4 % (12.1-15.1); White Blood Count 8.68 10^3/uL (3.29-11.43)
[2023-05-25 05:45] LABS: Alanine Aminotransferase 13 U/L (0-33); Albumin Level 2.5 g/dL (3.5-5.2); Alkaline Phosphatase 62 U/L (35-105); Aspartate Amino Transferase 15 U/L (0-32); Blood Urea Nitrogen 5 mg/dL (8-23); Calcium 8.1 mg/dL (8.5-10.5); Carbon Dioxide 25 mmol/L (22-29); Chloride 104 mmol/L (98-107); Globulin 2.6 g/dL (1.3-4.6); Glomerular Filtration Rate 159.7 mL/min (90-130); Glucose 150 mg/dL (65-115); Osmolality Calculated 290 mOsm/kg (285-295); Sodium 140 mmol/L (136-145); Total Bilirubin 0.3 mg/dL (0.15-1.2); Total Protein 5.1 g/dL (6.6-8.7)
[2023-05-25] MEDS: amlodipine 10 mg Tablet PO (08:35)
[2023-05-25] MEDS: losartan 50 mg Tablet PO (08:35)
[2023-05-25] MEDS: enoxaparin 40 mg/0.4 mL Syringe SUBCUT (08:35)
[2023-05-25] MEDS: pantoprazole 40 mg SDV IVP (08:35)
--- NOTE | 2023-05-25 08:42 | CT_ITS ---
WS: [id number] CT ABDOMEN PELVIS TECHNIQUE: Contrast-enhanced CT of the abdomen and pelvis with coronal and sagittal reformatted image s. CLINICAL INFORMATION: rule out anastomotic leak COMPARISON: None. DLP: 1172.[address] scans at [facility] use at least one of these dose optimization techniques: automated e xposure control; mA and/or kV adjustment per patient size (includes targeted exams where dose is matc hed to clinical indication); or iterative reconstruction. FINDINGS: Recent postoperative changes transverse colon partial resection with anastomosis. No evidence of anas tomotic leak. No drainable fluid collections or abscess. Surgical drain in the RIGHT abdomen. Postope rative changes in the RIGHT abdominal wall and subcutaneous soft tissues with subcutaneous air. Persi stent but improved previously described retroperitoneal air. Small amount of scattered residual intra -abdominal free air. Partially visualized pneumomediastinum improved compared to previous slight bibasilar atelectasis. Mi ld diffuse fatty infiltration of the liver. Cholecystectomy clips. Normal spleen. Splenic artery calc ification. Adrenal glands are normal. Normal renal parenchymal enhancement. Prominent renal pelvis bi laterally unchanged. Normal caliber abdominal aorta.Urine distended bladder. No free fluid in the pelvis. Metallic presume d biopsy clip in the sigmoid colon. Mild soft tissue or hematoma about the RIGHT common iliac artery is unchanged. RIGHT common iliac artery is patent. Prior hysterectomy. IMPRESSION: 1. No evidence of anastomotic leak. 2. No drainable abscess or fluid collection. 3. Expected postoperative changes in the abdomen. Surgical drain in the RIGHT abdomen. 4. Improving retroperitoneal and mesenteric air. Subcutaneous air in the RIGHT abdominal wall. 5. Improving pneumomediastinum partially visualized. 6. No other significant changes.
[2023-05-25] MEDS: iohexol 350 mg/mL 500 mL Btl (per mL) 100 ML IV (10:48)
[2023-05-25] MEDS: carvedilol 25 mg Tablet PO (11:22)
[2023-05-25 11:28] LABS: Glucose Point of Care 180 mg/dL (70-110)
--- NOTE | 2023-05-25 12:26 | P.DS_ITS ---
Discharge Providers Date of Admission: 05/20/23 00:48 Date of Discharge: May 25, 2023 Attending Provider at Admission: Ran Willams DO Attending Provider at Discharge: Alex Cuello MD Consults: Surgery: Dr. Willams Primary Care Provider: SAHOK Padron Diagnoses at Discharge Discharge Diagnosis (1) Perforated abdominal viscus: Status: Acute (2) Sepsis: Status: Acute (3) UTI (urinary tract infection): Status: Acute (4) Vascular abnormality: Status: Acute Reason for Visit Reason for Visit: abd pAIN Brief History: History as per HPI: Mary Torre is a 67 year old female who had colonoscopy with Dr. Jeronimo 2 days ago as screening colonoscopy because there is a family history of GI malignancy, patient never had any established diagnosis of malignancy, she does not carry any significant past medical history other than hypertension and diabetes she does not take any insulin, she has history of cholecystectomy, hysterectomy and tubal ligation other than that no significant surgical history presenting with chief complaint of right-sided dull abdominal pain. Patient is stating that right after her colonoscopy she felt dull ache in her right flank but she did not pay much attention, she was writing out her pain she was not experiencing any fever, nausea, vomiting she in fact was passing gas and regular bowel movement. Her daughter convinced her to go to the hospital today in the ER she has been diagnosed with perforated viscus she does have high lactic acid with tachycardia and leukocytosis she would meet sepsis criteria, she seems to have component of UTI/pyelonephritis Hospital Course Hospital Course Patient was admitted to the hospital for further evaluation and management of sepsis related to perforated viscus. She was started on IV hydration and broad- spectrum antibiotics. Surgery was consulted and she underwent exploratory laparotomy and extensive lysis of adhesion along with right hemicolectomy, creation of omental flap for iatrogenic colon perforation at hepatic flexure on 05/20. Patient responded well to the treatment and gradually obtained bowel functions and tolerated diet. During hospitalization her culture results remain negative. She finished 5-day course of postoperative IV antibiotic course. Her hospitalization was complicated by her having high blood pressures for which her multiple antihypertensives were adjusted. Prior to discharge patient is able to tolerate regular diet. She is to follow-up with a primary care provider within next 1 week to 10 days with a blood pressure diary for further adjustment of antihypertensives as needed. For now she will be on Coreg, amlodipine and losartan going forward. Her goal blood pressures are between 140/90 mmHg to 100/50 mmHg. She will follow-up with surgery as per their recommendations. Physical Exam Narrative: Accompanied by family. Const: COMMON NORMALS: patient oriented x3 and alert GENERAL APPEARANCE: cooperative and patient mechanically ventilated ORIENTATION/CONSCIOUSNESS: Yes awake HENMT: COMMON NORMALS: oropharynx normal Neck/C-Spine: COMMON NORMALS: no JVD Resp: COMMON NORMALS: normal respiratory effort and clear to auscultation bilaterally AUSCULTATION: clear to auscultation bilaterally Cardio: COMMON NORMALS: no JVD, regular rhythm, S1 normal heart sound present, S2 normal heart sound present and No murmurs present (Cardio) RHYTHM: regular rhythm HEART SOUNDS: S1 normal heart sound present and S2 normal heart sound present GI: COMMON NORMALS: Normal to inspection, nondistended, normoactive bowel sounds present, Soft to palpation and non-tender PALPATION: Yes Soft to palpation OTHER: Dressing over abdominal wound. TARYN drain, w serosang fluid. Extremity: COMMON NORMALS: no joint enlargement and no pedal edema OTHER: No swelling, erythema,. Mass or tenderness in the right groin. Neuro: COMMON NORMALS: patient oriented x3 and moves all extremities SENSORIUM/ORIENTATION: Yes alert Skin: COMMON NORMALS: no rashes or lesions noted GENERAL SKIN EXAM: no rashes or lesions noted Urinary Catheter Management: Jiménez: Cath Placed During This Visit: yes, but has since been removed by the nurse Reason for Continuing Indwelling Catheter: Decision to DC Catheter Urinary Catheter Date of Insertion: 05/19/23 Urinary Catheter Time of Insertion: 21:40 Date Urinary Catheter Removed: 05/21/23 Time Urinary Catheter Discontinued: 16:30 Discharge Data Studies Completed and Pending Completed Studies During Hospitalization Category Date Time Status CT abdomen pelvis w con* [id number] Stat Cat Scan 05/19/23 19:[address] abdomen pelvis w con* [id number] Stat Cat Scan 05/25/23 08:42 [place] [id number] Routine Ultrasound 05/21/23 21:15 Completed CV. echo complete* [id number] Routine Ultrasound 05/20/23 09:00 Completed Pending at discharge Category Date Time Status Blood Cultures ([facility]) Routine Lab 05/20/23 10:08 Results Blood Cultures ([facility]) Routine Lab 05/20/23 10:17 Results MRSA [Methicillin Resistant S.aureu] Routine Lab 05/22/23 09:40 Ordered Pathology: Surgical [PTH] Routine Pth 05/20/23 01:03 Received Radiology Impressions Arterial/Peripheral Duplex 05/21/23 21:15 IMPRESSION: The right distal iliac arteries and the right [employer]ICIAN are patent. No evidence of active pseudoaneurysm or hematoma. CT Abdomen/Pelvis- 05/19 CT/CT abdomen pelvis w con* [id number] IMPRESSION: 1. There is a large amount of intraperitoneal and right retroperitoneal air consistent with a ruptured viscus. 2. There is a heterogeneous collection in the mesentery adjacent to the hepatic flexure colon containing complex fluid and multiple foci of air concerning for an abscess formation. The adjacent hepatic flexure colon mucosa is thickened and ill-defined with a surrounding large amount of free intraperitoneal air. This may represent the site of viscus rupture. 3. There is intermediate density surrounding the right common iliac artery which cannot be differentiated from the adjacent right common iliac vein concerning for vascular injury. No active extravasation of contrast is seen in this region. 4. There is a short segment of dilatation of the distal right ureter without an obstructing calculus seen. Mild mid to distal right periureteral stranding. There are multiple foci of retroperitoneal air which surround the right kidney and the right ureter. 5. There is a 2.1 cm linear metallic density within the descending colon lumen possibly extending into the posterior colonic mucosa. 6. Pneumomediastinum. Dictated By: Beverly Foss MD CT abd repeat- 05/25 IMPRESSION: 1. No evidence of anastomotic leak. 2. No drainable abscess or fluid collection. 3. Expected postoperative changes in the abdomen. Surgical drain in the RIGHT abdomen. 4. Improving retroperitoneal and mesenteric air. Subcutaneous air in the RIGHT abdominal wall. 5. Improving pneumomediastinum partially visualized. 6. No other significant changes. Dictated By: Nakul Kan MD Microbiology 05/20/23 10:17 Blood Blood Culture - Preliminary 05/20/23 10:08 Blood Blood Culture - Preliminary 05/19/23 19:31 Urine,Clean Catch Urine Culture - Final Laboratory Results WBC 8.68 10^3/uL (3.29-11.43) 05/25/23 04:55 RBC 3.31 10^6/uL (3.85-5.65) L 05/25/23 04:55 Hgb 10.10 g/dL (11.27-16.99) L 05/25/23 04:55 Hct 31.0 % (36-47) L 05/25/23 04:55 MCV 93.7 fl (85-98) 05/25/23 04:55 MCH 30.5 pg (27-33) 05/25/23 04:55 MCHC 32.6 g/dL (30-55) 05/25/23 04:55 RDW 12.4 % (12.1-15.1) 05/25/23 04:55 Plt Count 383 10^3/cmm (157-399) 05/25/23 04:55 MPV 9.1 fL (7.4-10.4) 05/25/23 04:55 Neut % (Auto) 62.4 % 05/25/23 04:55 Lymph % (Auto) 21.2 % 05/25/23 04:55 Anderson % (Auto) 9.1 % 05/25/23 04:55 Eos % (Auto) 5.8 % 05/25/23 04:55 Baso % (Auto) 0.5 % 05/25/23 04:55 Neut # (Auto) 5.42 10^3/uL (1.8-7.7) 05/25/23 04:55 Lymph # (Auto) 1.8 10^3/uL (0.8-4.8) 05/25/23 04:55 Anderson # (Auto) 0.8 10^3/uL (0.2-0.9) 05/25/23 04:55 Eos # (Auto) 0.5 10^3/uL (0.0-0.8) 05/25/23 04:55 Baso # (Auto) 0.0 10^3/uL (0.0-0.1) 05/25/23 04:55 Nucleated RBC % (auto) 0 % 05/25/23 04:55 Nucleated RBCs # 0.0 /100WBC 05/25/23 04:55 D-Dimer 1.97 ug/mLFEU (0-0.59) H 05/21/23 03:38 Specimen Type Arterial 05/20/23 04:04 Sample Site Artline 05/20/23 04:04 ABG pH 7.35 (7.35-7.45) 05/20/23 04:04 ABG pCO2 39.5 mmHg (35-45) 05/20/23 04:04 ABG pO2 80.3 mmHg (80.0-100.0) 05/20/23 04:04 ABG PO2/FiO2 Ratio 0 05/20/23 04:04 ABG HCO3 21.6 mmol/L (22-26) L 05/20/23 04:04 ABG Base Excess -3.8 mmol/L (-2.0-2.0) L 05/20/23 04:04 Felipe Test N/a 05/20/23 04:04 Hematocrit 35.6 % (37-47) L 05/20/23 04:04 O2 Delivery Device Vent 05/20/23 04:04 FiO2 40.0 % 05/20/23 04:04 Tidal Volume 0.45 05/20/23 04:04 PEEP 5.0 cmH20 05/20/23 04:04 Kids [employer] Attendant ID Cak 05/20/23 04:04 Sodium 140 mmol/L (136-145) 05/25/23 04:55 Potassium 3.0 mmol/L (3.5-5.1) L 05/25/23 04:55 Chloride 104 mmol/L (98-107) 05/25/23 04:55 Carbon Dioxide 25 mmol/L (22-29) 05/25/23 04:55 Anion Gap 14.0 (5-19) 05/25/23 04:55 BUN 5 mg/dL (8-23) L 05/25/23 04:55 Creatinine 0.4 mg/dL (0.5-0.9) L 05/25/23 04:55 GFR Calculation 159.7 mL/min (90-130) H 05/25/23 04:55 Glucose 150 mg/dL (65-115) H 05/25/23 04:55 POC Glucose 180 mg/dL (70-110) H 05/25/23 11:22 Estimat Average Glucose 154 05/19/23 04:18 Hemoglobin A1c 7.0 % (4.0-6.0) H 05/19/23 04:18 Calculated Osmolality 290 mOsm/kg (285-295) 05/25/23 04:55 Lactic Acid 3.1 mmol/L (0.5-2.2) H 05/19/23 19:37 Lactate 1.3 mmol/L (0.5-2.2) 05/19/23 01:39 Calcium 8.1 mg/dL (8.5-10.5) L 05/25/23 04:55 Phosphorus 3.1 mg/dL (2.5-4.5) 05/20/23 04:18 Magnesium 1.7 mg/dL (1.7-2.3) 05/24/23 04:26 Iron 11 ug/dL (37-145) L 05/21/23 03:38 TIBC 168 mcg/dl 05/21/23 03:38 % Saturation 6.5 % (20-50) L 05/21/23 03:38 Unsat Iron Binding 157 ug/dL (112-347) 05/21/23 03:38 Total Bilirubin 0.3 mg/dL (0.15-1.2) 05/25/23 04:55 AST 15 U/L (0-32) 05/25/23 04:55 ALT 13 U/L (0-33) 05/25/23 04:55 Alkaline Phosphatase 62 U/L (35-105) 05/25/23 04:55 C-Reactive Protein 249.7 mg/L (0.0-4.9) H 05/20/23 04:18 Total Protein 5.1 g/dL (6.6-8.7) L 05/25/23 04:55 Albumin 2.5 g/dL (3.5-5.2) L 05/25/23 04:55 Globulin 2.6 g/dL (1.3-4.6) 05/25/23 04:55 Triglycerides 117 mg/dL (0-150) 05/22/23 05:06 Cholesterol 157 mg/dL (0-200) 05/22/23 05:06 LDL Cholesterol, Calc 103 mg/dL (50-129) 05/22/23 05:06 Total VLDL Cholesterol 23 mg/dL (0-30) 05/22/23 05:06 HDL Cholesterol 31 mg/dL (60-100) L 05/22/23 05:06 Cholesterol/HDL Ratio 5.06 mg/dL (0.0-4.40) H 05/22/23 05:06 Lipase 36 U/L (13-60) 05/19/23 20:28 Vitamin B12 1628 pg/mL (232-1245) H 05/21/23 03:38 Folate 10.6 ng/mL (4.8-37.3) 05/22/23 05:06 Procalcitonin 0.46 ng/mL (0-0.5) 05/21/23 03:38 TSH 0.43 uIU/mL (0.27-4.20) 05/21/23 03:38 Urine Color Yellow (Yellow) 05/19/23 19:31 Urine Appearance Hazy (CLEAR) A 05/19/23 19:31 Urine pH 6.5 (5-7) 05/19/23 19:31 Ur Specific [place] 1.005 (1.005-1.030) 05/19/23 19:31 Urine Protein Trace (Negative) 05/19/23 19:31 Urine Glucose (UA) 2+ (Normal) H 05/19/23 19:31 Urine Ketones 1+ (Negative) H 05/19/23 19:31 Urine Blood 2+ (Negative) H 05/19/23 19:31 Urine Nitrate Negative (Negative) 05/19/23 19:31 Urine Bilirubin Neg (Negative) 05/19/23 19:31 Urine Urobilinogen Norm mg/dL (Negative) 05/19/23 19:31 Ur Leukocyte Esterase 2+ (Negative) H 05/19/23 19:31 Urine RBC 5-10 /hpf (0-2) H 05/19/23 19:31 Urine WBC 25-40 /hpf (0-5) H 05/19/23 19:31 Ur Squamous Epith Cells 0-4 /hpf (0-5) H 05/19/23 19:31 Amorphous Sediment Trace /hpf 05/19/23 19:31 Urine Bacteria 1+ /hpf (NONE) H 05/19/23 19:31 Urine Mucus Trace /hpf 05/19/23 19:31 Vancomycin Trough 6.0 ug/mL (10-15) L 05/22/23 12:57 Influenza Type A Ag negative (Negative) 05/20/23 21:40 Influenza Type B Ag negative (Negative) 05/20/23 21:40 SARS-CoV-2 Ag (Rapid) negative (Negative) 05/20/23 21:40 Blood Type A Positive 05/20/23 10:08 Rho(D) Type Rh positive 05/20/23 10:08 Antibody Screen Negative 05/20/23 10:08 Vitals Last Vital Signs Temp 98.6 F 05/25/23 12:05 Pulse 93 05/25/23 12:05 Resp 17 05/25/23 12:05 BP 135/73 05/25/23 12:05 Pulse Ox 95 05/25/23 12:05 O2 Del Method Room Air 05/25/23 12:05 O2 Flow Rate 2 05/20/23 20:00 FiO2 35 05/20/23 09:29 Discharge Plan Discharge Patient Disposition: Home Health Service Condition: Stable Prescriptions: New carvedilol 25 mg Tablet 25 mg PO BID 30 Days Qty: 60 0RF pantoprazole [Protonix] 40 mg tablet,delayed release (DR/EC) 40 mg PO QAM 28 Days Qty: 28 0RF amlodipine 10 mg Tablet 10 mg PO DAILY Qty: 30 0RF losartan 50 mg Tablet 50 mg PO DAILY 30 Days Qty: 30 0RF Continued (DME) Diabetic Shoes with 3 sets of insoles See Rx Instructions .Route .MEDSUPPLY Qty: 1 0RF Rx Instructions: As directed by [facility] (DME) AFO to right See Rx Instructions .Route .MEDSUPPLY Qty: 1 0RF Rx Instructions: As directed by [facility] Held metformin 1,000 mg tablet 1,000 mg PO BID Qty: 180 3RF Discontinued lisinopril 10 mg tablet 10 mg PO DAILY Discharge Orders: Discharge Order (Routine); Ordered 05/25/23 Ordered By: Alex Cuello Referrals: Debbie Vo FNP [Primary Care Provider] - 7-10 days Discharge Diet: Diabetic Discharge Activity: Resume usual activity and Increase activity as tolerated Patient Instructions: Opioid Safety Activity Restrictions/Additional Instructions: Please follow-up with surgery as per their recommendations. Follow-up with a primary care provider within next 10 days. Your blood pressure medications have been changed. From now on you will be on Coreg 25 mg twice daily, losartan 50 mg once daily, amlodipine 10 mg once daily. Please check your blood pressures daily at home and maintain a blood pressure diary and follow-up with a primary care provider within next 10 days for further adjustment of medications. Goal blood pressure should be less than 140/90 mmHg and over 100/50 mmHg. Discharge Attestations Time Spent in Discharge Care*: greater than 30 min Specific Discharge Activities: educating patient, educating and/or supporting family/caregiver, discussing with pcp/other providers, discussing with case finisher/social workers/dc planners, documenting/other paperwork and evaluating patient/reviewing data Status at Discharge: Cognitive status at discharge: cognitively intact , Behavioral status at discharge: cooperative , Functional status at discharge: independent ambulation , Overall status at discharge: patient is progressing back to baseline Quality Metrics Clinical Quality Measures [ No reported AMI, CVA or VTE this stay] Coding Level of Care Code 09104 Total time (in minutes) for Discharge: 60 Diagnoses Perforated abdominal viscus R19.8 Sepsis A41.9 UTI (urinary tract infection) N39.0 Vascular abnormality I99.9
--- NOTE | 2023-05-25 12:34 | PC.SOCIAL ---
IMM Updated Updated pt on IMM. No questions voiced. Provided pt a copy. Initialed, dated, & timed copy in chart.
--- NOTE | 2023-05-25 15:12 | PC.NURSE ---
TARYN drain removed. pt tolerated well. Central line removed, with catheter intact. patient and family verbalized understanding of discharge instructions, home medications, and follow up appointments.
[2023-05-29 07:18] LABS: Mismatch Repari Proteins-IHC See Report
== END 2023-05-25 15:17 | disposition home or self-care (01) | DRG 854 ==
LOC: ER 20:24 → OR 20:40 → ICU 05-20 00:56 → MEDSURG 05-21 16:14
PROVIDERS: Internal Medicine; Admitting Provider Surgery; Emergency Provider Emergency Medicine; PCP Nurse Practitioner Family; Visit Provider Student in an Organized Health Care Education/Training Program
PROC: (CPT 49000; principal; 2023-05-19 21:00)
PROC: (CPT 44140; 2023-05-19 21:00)
DX: A41.9 Sepsis, unspecified organism (principal); K91.71 Accidental puncture and laceration of a digestive system organ or structure during a digestive system procedure; N12 Tubulo-interstitial nephritis, not specified as acute or chronic; Y84.8 Other medical procedures as the cause of abnormal reaction of the patient, or of later complication, without mention of misadventure at the time of the procedure; Y92.89 Other specified places as the place of occurrence of the external cause; I99.9 Unspecified disorder of circulatory system; E83.42 Hypomagnesemia; E11.9 Type 2 diabetes mellitus without complications; I10 Essential (primary) hypertension
CPT/HCPCS: 36415; 36416; 36592; 51702; 74177; 80053; 80061; 80202; 81001; 82607; 82746; 82803; 82962; 83036; 83540; 83550; 83605; 83690; 83735; 84100; 84145; 84443; 85025; 85378; 86140; 86850; 86900; 87040; 87086; 87426; 87804; 88309; 88341; 88342; 93306; 93926; 94002; 94003; 94799; 96372; 96374; 96375; 96376; 97116; 97163; 97530; 99285; C9113; J0330; J0360; J1100; J1170; J1650; J1815; J2185; J2250; J2270; J2371; J2405; J2543; J2704; J3010; J3370; J3372; J3475; J3480; J3490; J7030; J7050; J7120; J7121; Q9967

== ENCOUNTER → 2023-06-05 10:18 | Outpatient (BNVA) | payer MEDICARE, SELFPAY | PROVIDERS: PCP Nurse Practitioner Family; Visit Provider Surgery | DX: R19.8 Other specified symptoms and signs involving the digestive system and abdomen (principal); C18.9 Malignant neoplasm of colon, unspecified; Z98.890 Other specified postprocedural states | CPT/HCPCS: 99024 ==

== ENCOUNTER 2023-06-07 08:00 | Oncology outpatient (recurring) (ONCR) | payer MEDICARE, SELFPAY ==
[2023-06-07 09:46] LABS: Basophils # 0.1 10^3/uL (0.0-0.1); Eosinophils # 0.2 10^3/uL (0.0-0.8); Eosinophils % 3.1 %; Hematocrit 34.9 % (36-47); Lymphocytes # 1.5 10^3/uL (0.8-4.8); Lymphocytes % 21.6 %; Mean Corpuscular HGB Conc 33.5 g/dL (30-55); Mean Corpuscular Hemoglobin 30.2 pg (27-33); Mean Corpuscular Volume 89.9 fl (85-98); Mean Platelet Volume 9.1 fL (7.4-10.4); Monocytes # 0.5 10^3/uL (0.2-0.9); Monocytes % 6.4 %; Neutrophils # 4.79 10^3/uL (1.8-7.7); Neutrophils % 67.6 %; Nucleated Red Blood Cells % 0 %; Platelet Count 454 10^3/cmm (157-399); Red Blood Count 3.88 10^6/uL (3.85-5.65); Red Cell Distribution Width 12.3 % (12.1-15.1); White Blood Count 7.08 10^3/uL (3.29-11.43)
[2023-06-07 10:07] LABS: Alanine Aminotransferase 24 U/L (0-33); Albumin Level 3.4 g/dL (3.5-5.2); Alkaline Phosphatase 80 U/L (35-105); Anion Gap 16.1 (5-19); Aspartate Amino Transferase 18 U/L (0-32); Blood Urea Nitrogen 6 mg/dL (8-23); Calcium 8.7 mg/dL (8.5-10.5); Carbon Dioxide 24 mmol/L (22-29); Chloride 101 mmol/L (98-107); Creatinine Clr Calc Pharmacy 84.9403; Ferritin 185 ng/mL (15-150); Globulin 3.2 g/dL (1.3-4.6); Glucose 209 mg/dL (65-115); Iron 60 ug/dL (37-145); Osmolality Calculated 290 mOsm/kg (285-295); Percent Saturation 21.4 % (20-50); Potassium 3.1 mmol/L (3.5-5.1); Sodium 138 mmol/L (136-145); Total Bilirubin 0.3 mg/dL (0.15-1.2); Total Iron Binding Capacity 280 mcg/dl; Total Protein 6.6 g/dL (6.6-8.7); Unsaturated Iron Binding 220 ug/dL (112-347)
[2023-06-07 10:21] LABS: Vitamin B12 396 pg/mL (232-1245)
[2023-06-07 10:25] LABS: Folate Level 10.6 ng/mL (4.8-37.3)
[2023-06-07 10:53] LABS: Carcinoembryonic Antigen 1.3 ng/mL (0.0-4.7)
[2023-06-11 14:39] LABS: Methylmalonic Acid 64 nmol/L (87-318)
[2023-06-13 12:00] LABS: Soluble Transferrin Receptor 1.55 mg/L (0.76-1.76)
== END 2023-06-13 23:59 | disposition home or self-care (01) ==
PROVIDERS: Internal Medicine; PCP Nurse Practitioner Family; Visit Provider Nurse Practitioner Family
DX: C18.9 Malignant neoplasm of colon, unspecified (principal); R19.8 Other specified symptoms and signs involving the digestive system and abdomen; Z79.899 Other long term (current) drug therapy
CPT/HCPCS: 36415; 80053; 82378; 82607; 82728; 82746; 83540; 83550; 83921; 84238; 85025; 99215

== ENCOUNTER → 2023-06-21 10:32 | Outpatient (BNVA) | payer MEDICARE, SELFPAY | PROVIDERS: PCP Nurse Practitioner Family; Visit Provider Surgery | DX: C18.9 Malignant neoplasm of colon, unspecified (principal) | CPT/HCPCS: 99214 ==

== ENCOUNTER 2023-06-26 12:10 | Day surgery (SDC) | payer MEDICARE, SELFPAY ==
[2023-06-26] VITALS (9 sets, daily range): BP systolic 125–177; BP diastolic 71–102; PULSE 69–81; RESP 10–18; TEMP 35.5–36.6; O2SAT 95–97
--- NOTE | 2023-06-26 | XRR_ITS ---
PROCEDURE INFORMATION: Exam: XR Chest Exam date and time: 06/26/2023 4:23 PM Age: 67 years old Clinical indication: Device placement; Other: Port placement; Prior surgery; Surgery date: Post-operative (0-2 days); Additional info: Post op port TECHNIQUE: Imaging protocol: Radiologic exam of the chest. Views: 1 view. COMPARISON: CT abdomen pelvis w con* [id number] 05/25/2023 10:27 AM FINDINGS: Lungs: No focal consolidation. Pleural spaces: No evidence of pneumothorax. No evidence of pleural effusion. Heart/Mediastinum: Left subclavian approach MediPort with tip in the region of the mid SVC. Cardiomediastinal silhouette is within normal limits. Bones/joints: No evidence of acute osseous abnormality. XR/XR chest 1V portable [id number] IMPRESSION: 1. Left subclavian approach MediPort with tip in the region of the mid SVC.
--- NOTE | 2023-06-26 12:17 | SC_ITS ---
WS: [id number] C-ARM RADIOGRAPHS CHEST; 2 IMAGES HISTORY: Mediport COMPARISON: None available. Intraoperative imaging during Mediport placement. Mediport enters a LEFT subclavian vein with termina tion in the mid SVC. IMPRESSION: Intraoperative imaging during Mediport placement.
[2023-06-26] MEDS: sodium chloride 0.9% 1,000 ML 30 ML IV (12:40)
[2023-06-26 12:58] LABS: Glucose Point of Care 149 mg/dL (70-110)
[2023-06-26] MEDS: midazolam 1 mg/mL INJ 2 mL 2 MG IVP (13:33)
--- NOTE | 2023-06-26 13:38 | ANES.PREANE2 ---
Pre-Anesthetic Assessment Height/Weight: Height 1.7 m Weight 99.337 kg Temp Pulse Resp BP Pulse Ox O2 Del Method 97.8 F 81 16 177/102 97 Room Air 06/26/23 12:28 06/26/23 12:28 06/26/23 12:28 06/26/23 12:28 06/26/23 12:28 06/26/23 12:36 Operation Date: 06/26/23 14:05 Proposed Procedures p [id number] port placement C18.9(Not Applicable) - Ran Willams DO Familial anesthetic complications: none Was Beta Delphine taken within 24 hours: Yes Was Clonidine taken within 24 hours: N/A Last intake: Intake Last Liquid Date 06/26/23 Last Liquid Time 01:10 Last Solid Date 06/25/23 Last Solid Time 22:00 Social No alcohol and No tobacco Exam alert, oriented x 3, clear to auscultation bilaterally and regular rate & rhythm Airway Submandibular: within normal limits Cervical ROM: within normal limits Mallampati: Class II Dentition: full CV/HEM Hypertension Metabolic Diabetes Mellitus and Morbid Obesity Anesthetic Plan ASA status: 3 Anesthesia: Choice Medications/Allergies Home Medications Medication Instructions Recorded Confirmed Last Taken Type metformin 1,000 mg tablet 1,000 mg PO BID #180 tabs 03/08/23 06/26/23 06/25/23 Rx AFO to right #1 ea 03/13/23 06/21/23 Unknown Rx Diabetic Shoes with 3 sets of #1 ea 03/13/23 06/21/23 Unknown Rx insoles amlodipine 10 mg tablet 10 mg PO DAILY #30 tabs 05/25/23 06/25/23 06/25/23 Rx hydrocodone 5 mg-acetaminophen 325 1 tab PO Q8H PRN pain #10 tabs 05/25/23 06/26/23 Unknown Rx mg tablet carvedilol 25 mg tablet 25 mg PO BID 06/25/23 06/25/23 06/26/23 History losartan 50 mg tablet 50 mg PO DAILY 06/25/23 06/26/23 06/25/23 History Allergies Allergy/AdvReac Type Severity Reaction Status Date / Time Ssgyonz-ZUS-TmI Reductase Allergy Unknown Verified 06/25/23 16:36 Inhibitor Current Medications Generic Name Dose Route Start Last Admin Trade Name Freq PRN Reason Stop Dose Admin Sodium Chloride 1,000 mls @ 30 mls/hr 06/26/23 12:30 06/26/23 12:40 Sodium Chloride 0.9% IV 06/27/23 12:29 30 mls/hr .Q24H DONNY Administration Midazolam HCl 2 mg 06/26/23 12:17 06/26/23 13:33 Midazolam 1 Mg/Ml Inj 2 Ml IVP 2 mg ONCE PRN Administration Preop Anxiety PFSH Anesthesia Medical History Adenocarcinoma of colon Hypertension Well adult exam Diabetes Screening for breast cancer Surgical History Hx of right hemicolectomy 05/20/23 Iatrogenic colon perforation at the hepatic flexure Procedure done: Exploratory laparotomy Extensive lysis of adhesions Right hemicolectomy History of colonoscopy Screening colonoscopy Data Anesthesia Cardiac Studies: Echocardiogram 05/20/23
--- NOTE | 2023-06-26 14:05 | W.PM.OPSUD ---
Surgery/Procedure H&P Update DATE OF PROCEDURE: June 26, 2023 DATE H&P PERFORMED: 06/21/23 H&P UPDATE INFORMATION: I have reviewed H&P completed within last 30 days, I have examined patient prior to procedure and No changes to prior documentation PLANNED PROCEDURE: Operation Date: 06/26/23 14:05 Proposed Procedures p [id number] port placement C18.9(Not Applicable) - Ran Willams DO
[2023-06-26] MEDS: ceFAZolin 2,000 MG in sodium chloride 0.9% (plus) 50 ML 100 MG IV (15:23)
[2023-06-26] MEDS: lidocaine-epi 2% PF 1:200,000 20 mL SDV XX (15:40)
[2023-06-26] MEDS: heparin, porcine 1,000 unit/mL INJ 10 mL 10000 UNIT IRRIGATION (15:40)
--- NOTE | 2023-06-26 15:58 | PM.OP ---
Operative Report Date of procedure: June 26, 2023 Pre-op diagnosis: Colon cancer Post-op diagnosis: same Procedure done: Mediport placement Implants: PowerPort Specimens removed/disposition: None Surgeon: Ran Willams DO Anesthesia: MAC and Local Estimated blood loss (mL): 5 Complications: None apparent Brief History: This very pleasant 67-year-old female who was found to have colon cancer. Oncology requested Mediport placement for chemotherapy access. The risk and benefits were explained and documented. Procedure: They put another order I will do right now things the patient was taken to the operating room and placed supine on the operating room table. All bony prominences were padded. She was given IV sedation and monitored throughout the case by the anesthesia personnel. SCDs were placed and turned on. The arms were tucked to the side. Patient received Ancef 2 g preoperatively IV. The bilateral chest wall was prepped and draped in usual sterile fashion using chlorhexidine base prep. Sterile drapes were applied. We did procedure pause prior to beginning. An 18 gauge needle was placed in the left subclavian vein. Dark, nonpulsatile blood was aspirated. A guidewire was placed through the needle centrally toward the atrial/vena caval junction. Fluoroscopy visualized good placement. The needle was removed and the guidewire was clipped to the drape with a hemostat. Further local anesthetic was infiltrated in the soft tissues of the left chest wall and a #15 blade was used to make a horizontal skin incision. A subcutaneous Mediport pocket was created using Bovie cautery, dissecting down through the skin and subcutaneous tissues. Meticulous hemostasis was achieved. The Mediport was sutured in position using 3-0 vicryl suture x2 stitches. A #15 blade was used to make a small skin saman around the guidewire insertion area. The Mediport tubing was tunneled through the subcutaneous tissues up to the needle insertion location. A dilator with a peel-away sheath was placed over the guidewire and placed centrally. After measuring the Mediport tubing was cut to length so that the tip would end at the atrial/vena caval junction. The inner cannula and the guidewire were removed, leaving the dilator sheath in place. The Mediport was flushed. The tip of the catheter was inserted through the peel-away sheath and the peel-away sheath removed in the standard fashion. The Mediport was accessed with a straight Craig needle and dark, nonpulsatile blood was aspirated and flushed using heparinized saline to hep-lock the Mediport. Final fluoroscopy visualization showed no kink in the catheter and the tip of the Mediport tubing near the atrial/vena caval junction. Both skin incisions were thoroughly irrigated and suctioned dry. Meticulous hemostasis noted. The dermis was approximated with 3-0 Vicryl in an interrupted fashion. Skin was closed with Dermabond. Patient was awakened from anesthesia and transferred via her cart to the recovery room in stable condition. All needle, sponge, and instrument counts were correct per the operating personnel x2 counts.
--- NOTE | 2023-06-26 17:14 | ANE.PACU2 ---
Inpatient post-anesthesia follow up: Airway intact: Yes Vital signs: Temperature 97.3 F Pulse Rate 74 Respiratory Rate 16 Blood Pressure 160/78 Pulse Oximetry 95 Oxygen Delivery Me thod Room Air Oxygen Flow Rate Fraction of Inspir ed Oxygen Hydration adequate: Yes Nausea and vomiting: No Pain level: 2 Mental status: Baseline
== END 2023-06-26 15:20 | disposition home or self-care (01) ==
PROVIDERS: PCP Nurse Practitioner Family; Visit Provider Surgery
PROC: (CPT 36561; principal; 2023-06-26 13:55)
DX: C18.9 Malignant neoplasm of colon, unspecified (principal); I10 Essential (primary) hypertension; E11.9 Type 2 diabetes mellitus without complications; E66.01 Morbid (severe) obesity due to excess calories; Z68.34 Body mass index [BMI] 34.0-34.9, adult; Z79.84 Long term (current) use of oral hypoglycemic drugs
CPT/HCPCS: 36561; 36416; 71045; 77001; 82962; C1788; J0690; J1644; J2250; J2704; J3010; J7030

== ENCOUNTER 2023-06-27 09:06 | Outpatient (CLI) | payer MEDICARE, SELFPAY ==
--- NOTE | 2023-06-27 09:30 | CT_ITS ---
WS: [id number] CT chest w con* [id number] HISTORY: adenocarcinoma of colon TECHNIQUE: Axial imaging performed through the thorax. Coronal and sagittal reformats are submitted. All CT scans at [facility] use at least one of these dose optimization techniques: automated exposure control; mA and/or kV adjustment per patient size (includes targeted exams where dose is mat ched to clinical indication); or iterative reconstruction. CONTRAST: Omnipaque 350; 100 mL IV. DLP: 589.67 mGy.cm COMPARISON: Chest radiograph 06/26/2023. Lungs and central airway: No pulmonary mass or nodules. No pneumonia. Benign calcified granuloma RIGH T lower lobe. No groundglass attenuation. Pleura: Normal. No pleural effusion. Heart and pericardium: Normal size heart with no pericardial effusion. Mediastinum and saturnino: No mediastinum or hilar adenopathy. Vessels: Mild atherosclerosis aorta. No aneurysm. Normal size pulmonary artery. Chest wall and lower neck: Bilateral thyroid nodules. The largest is 11 mm. LEFT subclavian Port-A-Ca th is identified. Postsurgical changes are noted along the anterior upper abdominal wall. Upper abdomen: Visualized liver is normal. No adrenal mass. Postsurgical changes along the anterior s upraumbilical abdominal wall. Prior cholecystectomy. Osseous structures: Mild thoracic degenerative disc disease. IMPRESSION: 1. No pulmonary mass or nodule. No metastatic disease to the lungs. 2. No adenopathy in the mediastinum or hilar regions. 3. No adrenal mass. The visualized liver is normal.
[2023-06-27] MEDS: iohexol 350 mg/mL 500 mL Btl (per mL) IV (09:33)
== END 2023-06-27 09:07 | disposition home or self-care (01) ==
LOC: RAD 09:07
PROVIDERS: PCP Nurse Practitioner Family; Visit Provider Internal Medicine
DX: C18.9 Malignant neoplasm of colon, unspecified (principal)
CPT/HCPCS: 71260; Q9967

== ENCOUNTER 2023-07-11 14:30 | Oncology outpatient (recurring) (ONCR) | payer MEDICARE, SELFPAY ==
[2023-07-09 08:17] LABS: Basophils # 0.1 10^3/uL (0.0-0.1); Basophils % 0.9 %; Eosinophils # 0.1 10^3/uL (0.0-0.8); Eosinophils % 2.2 %; Hematocrit 39.8 % (36-47); Lymphocytes # 1.7 10^3/uL (0.8-4.8); Lymphocytes % 29.9 %; Mean Corpuscular HGB Conc 33.7 g/dL (30-55); Mean Corpuscular Volume 89.2 fl (85-98); Mean Platelet Volume 8.5 fL (7.4-10.4); Monocytes # 0.3 10^3/uL (0.2-0.9); Monocytes % 5.8 %; Neutrophils # 3.36 10^3/uL (1.8-7.7); Nucleated Red Blood Cells % 0 %; Platelet Count 308 10^3/cmm (157-399); Red Blood Count 4.46 10^6/uL (3.85-5.65); Red Cell Distribution Width 12.8 % (12.1-15.1); White Blood Count 5.51 10^3/uL (3.29-11.43)
[2023-07-09 08:50] LABS: Alanine Aminotransferase 20 U/L (0-33); Albumin Level 3.9 g/dL (3.5-5.2); Alkaline Phosphatase 80 U/L (35-105); Anion Gap 14.9 (5-19); Aspartate Amino Transferase 15 U/L (0-32); Blood Urea Nitrogen 10 mg/dL (8-23); Calcium 9.2 mg/dL (8.5-10.5); Carbon Dioxide 25 mmol/L (22-29); Chloride 102 mmol/L (98-107); Globulin 2.9 g/dL (1.3-4.6); Glucose 195 mg/dL (65-115); Osmolality Calculated 290 mOsm/kg (285-295); Potassium 3.9 mmol/L (3.5-5.1); Sodium 138 mmol/L (136-145); Total Bilirubin 0.4 mg/dL (0.15-1.2); Total Protein 6.8 g/dL (6.6-8.7)
[2023-07-09] MEDS: dextrose 5% 250 ML 75 ML IV (10:45)
[2023-07-09] MEDS: palonosetron 0.25 mg/5 mL SDV IVP (10:45)
[2023-07-09] MEDS: oxaliplatin 182 MG in dextrose 5% 250 ML 143.199999999999989 MG IV (11:22)
[2023-07-09] MEDS: leucovorin 850 MG in dextrose 5% 250 ML 62.5 MG IV (11:22)
[2023-07-09] MEDS: fluorouraciL 50 mg/ml MDV 100 mL 850 MG IVP (13:57)
[2023-07-09] MEDS: fluorouraciL 5,100 MG, elastomeric pump 1 PUMP in sodium chloride 0.9% (100 ml) 128 ML IV (13:58)
[2023-07-09 14:10] VITALS: BP 160/88; PULSE 88; RESP 18; O2SAT 96
[2023-07-11 15:00] VITALS: BP 148/82; PULSE 81; RESP 16; TEMP 36.7; O2SAT 95
== END 2023-07-12 23:59 | disposition home or self-care (01) ==
PROVIDERS: Internal Medicine Medical Oncology; PCP Nurse Practitioner Family; Visit Provider Nurse Practitioner Family
DX: Z53.9 Procedure and treatment not carried out, unspecified reason (principal); C45.1 Mesothelioma of peritoneum
CPT/HCPCS: 36415; 76000; 80053; 85025; 96367; 96368; 96375; 96411; 96413; 96415; 96416; 96523; 99215; J0640; J1100; J2469; J7060; J9190; J9263

== ENCOUNTER → 2023-07-12 08:01 | Outpatient (BNVA) | payer MEDICARE, SELFPAY | PROVIDERS: PCP Nurse Practitioner Family; Visit Provider Surgery | DX: Z95.828 Presence of other vascular implants and grafts (principal) | CPT/HCPCS: 99214 ==

== ENCOUNTER 2023-08-02 01:09 | Emergency (ER) | payer MEDICARE, SELFPAY ==
[2023-08-02] VITALS (7 sets, daily range): BP systolic 136–185; BP diastolic 82–94; PULSE 83–92; RESP 15–23; TEMP 37; O2SAT 94–100; BMI 33.6
[2023-08-02 01:56] LABS: Basophils % 0.4 %; Eosinophils # 0.1 10^3/uL (0.0-0.8); Eosinophils % 0.7 %; Hematocrit 36.6 % (36-47); Lymphocytes # 2.1 10^3/uL (0.8-4.8); Lymphocytes % 25.9 %; Mean Corpuscular HGB Conc 34.2 g/dL (30-55); Mean Corpuscular Hemoglobin 29.6 pg (27-33); Mean Corpuscular Volume 86.7 fl (85-98); Mean Platelet Volume 8.8 fL (7.4-10.4); Monocytes # 0.7 10^3/uL (0.2-0.9); Monocytes % 8.3 %; Neutrophils # 5.33 10^3/uL (1.8-7.7); Neutrophils % 64.5 %; Nucleated Red Blood Cells % 0 %; Platelet Count 291 10^3/cmm (157-399); Red Blood Count 4.22 10^6/uL (3.85-5.65); Red Cell Distribution Width 12.9 % (12.1-15.1); White Blood Count 8.27 10^3/uL (3.29-11.43)
--- NOTE | 2023-08-02 01:59 | CTR_ITS ---
PROCEDURE INFORMATION: Exam: CT Abdomen And Pelvis With Contrast Exam date and time: 08/02/2023 2:25 AM Age: 67 years old Clinical indication: Abdominal pain; Localized; Left lower quadrant (llq); Prior surgery; Surgery date: 1-6 months; Surgery type: Pumctured colon in May during colonoscopy, gb, hysterectomy, ; additional info: Abd pain TECHNIQUE: Imaging protocol: Computed tomography of the abdomen and pelvis with contrast. Radiation optimization: All CT scans at this facility use at least one of these dose optimization techniques: automated exposure control; mA and/or kV adjustment per patient size (includes targeted exams where dose is matched to clinical indication); or iterative reconstruction. Contrast material: OMNI 350; Contrast volume: 100 ml; Contrast route: INTRAVENOUS (IV); COMPARISON: CT abdomen pelvis w con* [id number] 05/25/2023 10:27 AM RADIATION DOSE METRICS: Total DLP (mGy-cm): 995 FINDINGS: Liver: Liver is unremarkable. Gallbladder and bile ducts: Cholecystectomy with mild expected intrahepatic and extrahepatic biliary duct dilation. Pancreas: Pancreas is unremarkable. No main duct dilation. Spleen: Splenic granulomas, otherwise unremarkable. Adrenal glands: Unremarkable. Kidneys and ureters: See Urinary bladder finding. Stomach and bowel: Surgical changes of partial colectomy. No bowel obstruction. Appendix: No evidence of appendicitis. Intraperitoneal space: Mild scattered fat stranding, decreased from prior, presumably postoperative. No free air. No significant fluid collection. Vasculature: Unchanged partially calcified 1.4 cm splenic artery aneurysm. No aortic aneurysm. Lymph nodes: No enlarged lymph nodes. Urinary bladder: Circumferential bladder wall thickening with mild mucosal hyperemia. Diffuse urothelial thickening throughout the bilateral ureters and bilateral renal collecting systems. Mild bilateral hydroureteronephrosis. No urinary tract calculi. Subcentimeter too small to characterize renal hypodensities. Reproductive: Hysterectomy. Bones/joints: No acute fracture. Degenerative changes. Soft tissues: Surgical changes within the midline abdominal wall. CT/CT abdomen pelvis w con* [id number] IMPRESSION: Bilateral ureteritis and pyelitis as well as cystitis. Mild bilateral hydroureteronephrosis. No urinary tract calculi. COMMENTS: Consistent with the [employer] [employer]'s Incidental Findings Committee white paper (J Am Nida Radiol 2018): Any incidental renal lesion less than 1 cm or classified as too small to characterize, or any incidental cystic renal lesion characterized as simple-appearing, is likely benign. No follow-up imaging is recommended for these lesions per consensus recommendations based on imaging criteria.
[2023-08-02 02:07] LABS: Alanine Aminotransferase 24 U/L (0-33); Albumin Level 3.9 g/dL (3.5-5.2); Alkaline Phosphatase 92 U/L (35-105); Anion Gap 17.1 (5-19); Aspartate Amino Transferase 17 U/L (0-32); Blood Urea Nitrogen 8 mg/dL (8-23); Calcium 9.1 mg/dL (8.5-10.5); Carbon Dioxide 24 mmol/L (22-29); Chloride 98 mmol/L (98-107); Globulin 3.1 g/dL (1.3-4.6); Glucose 184 mg/dL (65-115); Lipase 45 U/L (13-60); Osmolality Calculated 285 mOsm/kg (285-295); Potassium 3.1 mmol/L (3.5-5.1); Sodium 136 mmol/L (136-145); Total Bilirubin 0.5 mg/dL (0.15-1.2)
[2023-08-02] MEDS: morphine 4 mg/mL SDV 1 mL IVP (02:08)
[2023-08-02] MEDS: ondansetron 2 mg/ML SDV 2 mL 4 MG IVP (02:08)
[2023-08-02 02:25] LABS: Add Urine Microscopic? YES; Bilirubin Urine Neg (Negative); Blood Urine 3+ (Negative); Glucose Urine UA Norm (Normal); Ketones Urine Negative (Negative); Leukocyte Esterase Urine 2+ (Negative); Nitrate Urine Negative (Negative); Protein Urine 1+ (Negative); RBC Urine 25-40 /hpf (0-2); Specific Gravity, Urine 1.005 (1.005-1.030); Squamous Epithelial Cell Urine 0-4 /hpf (0-5); Urine Appearance Cloudy (CLEAR); Urine Color Light yellow (Yellow); Urobilinogen Urine Neg (Negative); WBC Urine 80-100 /hpf (0-5); pH Urine 6 (5-7)
[2023-08-02 02:26] LABS: Add Urine Culture? Yes; Bacteria Urine 1+ /hpf
[2023-08-02 02:27] LABS: Lactic Sepsis W/Reflex 1.6 mmol/L (0.5-2.2)
[2023-08-02] MEDS: iohexol 350 mg/mL 500 mL Btl (per mL) IV (02:27)
[2023-08-02 02:34] LABS: Procalcitonin 0.05 ng/mL (0-0.5)
[2023-08-02] MEDS: phenazopyridine 100 mg Tablet 200 MG PO (02:53)
[2023-08-02] MEDS: cefTRIAXone 1,000 MG in sodium chloride 0.9% (plus) 50 ML 100 MG IV (02:55)
[2023-08-02] MEDS: sodium chloride 0.9% 1,000 ML 999 ML IV (02:56)
--- NOTE | 2023-08-02 03:45 | W.ED.ABDPA2 ---
HPI - Abdominal Pain General: Chief Complaint: Abdominal Pain Stated Complaint: Lower abd pain/Side pain, Cancer pt Time Seen by Provider: 08/02/23 01:10 History of Present Illness: 67-year-old female presents emergency department with her family member. For member states that her mom called her this evening and severe 10 out of 10 lower abdominal pain after attempting to urinate. Patient states she felt like something was ripping her left lower pelvis area. She states she has 10 out of 10 sharp stabbing pain. She states that she did feel slightly dizzy when this pain occurred. She is currently undergoing chemotherapy and has a history of colon cancer with resection and perforation. She states she did notice that she was having some increased urinary frequency and dysuria approximately 1 week ago and at that time disregarded her discomfort. She denies fevers chills or night sweats. She denies nausea or vomiting. Associated Symptoms: Reports dysuria; Denies nausea and vomiting Review of Systems General: Reports: 10 or more systems reviewed and unremarkable except in HPI and below GI: Reports: abdominal pain; Denies: nausea or vomiting : Reports: flank pain, dysuria, urinary frequency and urinary urgency [facility] PFSH: Medical History (Updated 08/02/23 @ 03:51 by Gee Canela MD) Port-A-Cath in place Diabetes Adenocarcinoma of colon Hypertension Well adult exam Screening for breast cancer Surgical History Hx of right hemicolectomy 05/20/23 Iatrogenic colon perforation at the hepatic flexure Procedure done: Exploratory laparotomy Extensive lysis of adhesions Right hemicolectomy History of colonoscopy Screening colonoscopy Social History Smoking and tobacco/nicotine status: never used tobacco/nicotine Physical Exam Narrative: EXAM NARRATIVE: Constitutional: the patient appears well nourished and with normal development. Vital signs reviewed as documented. In acute pain, moderate distress HENMT: Normocephalic, atraumatic. External ears normal appearance without drainage. Nose without drainage, normal appearance. Mucus membranes moist. Neck is supple, No jugular venous distension, trachea is midline, no appreciable carotid bruits. Eyes: Pupils are equal, round, reactive to light and accommodation. No scleral icterus. Extra-ocular movement are intact. Thorax is symmetrical and with equal rise and fall with respirations. Resp: Lungs are clear to auscultation. No wheezes, rales, crackles or ronchi at present. Cardio: Regular rate and rhythm. Positive S1, S2. No appreciable murmurs, rubs or gallops. GI: Abdominal exam reveals normal bowel sounds to all quadrants. No organomegaly. No obvious palpable masses noted. No hepatomegally appreciated. Soft, tender to palpation to the bilateral lower quadrants Extremity: Extremities are non-edematous and both femoral and pedal pulses are 2+ and equal bilaterally. Moves all extremities well, sensation in all extremities. Neuro: Alert and oriented x4, person, place, time and situation. Motor strength in the upper and lower extremities are equal and bilateral 5/5. Psych: Cooperative, calm, normal thought process, appropriate judgment. Skin: No lesions, rashes. No gross abnormalities noted. Back: Symmetrical, no obvious deformity, No CVA tenderness Course Vital Signs: Vital signs: Vital Signs Temperature 98.6 F 08/02/23 01:20 Pulse Rate 83 08/02/23 03:00 Respiratory Rate 16 08/02/23 03:00 Blood Pressure 180/94 08/02/23 03:00 Pulse Oximetry 95 08/02/23 03:00 Oxygen Delivery Me thod Room Air 08/02/23 03:00 MDM - Abdominal Pain Medical Decision Making Physical exam completed document I will obtain a CBC as well as a CMP and CT scan of her abdomen pelvis given her previous history of bowel perforation and current regimen of chemotherapy. I will also obtain a urinalysis for evaluation. Her differential diagnosis does include diverticulitis, colitis, hemorrhagic cystitis, UTI, pyelonephritis, Medical Records I reviewed the patient's medical records. Lab Data I reviewed the patient's lab results. 08/02/23 01:27 08/02/23 01:27 Labs/Radiology: Radiology Impressions Abdomen/Pelvis CT 08/02/23 01:59 IMPRESSION: Bilateral ureteritis and pyelitis as well as cystitis. Mild bilateral hydroureteronephrosis. No urinary tract calculi. COMMENTS: Consistent with the [employer]'s Incidental Findings Committee white paper (J Am Nida Radiol 2018): Any incidental renal lesion less than 1 cm or classified as too small to characterize, or any incidental cystic renal lesion characterized as simple-appearing, is likely benign. No follow-up imaging is recommended for these lesions per consensus recommendations based on imaging criteria. Laboratory Results WBC 8.27 10^3/uL (3.29-11.43) 08/02/23: RBC 4.22 10^6/uL (3.85-5.65) 08/02/23 01: Hgb 12.50 g/dL (11.27-16.99) 08/02/23: Hct 36.6 % (36-47) 08/02/23: MCV 86.7 fl (85-98) 08/02/23 01: MCH 29.6 pg (27-33) 08/02/23: MCHC 34.2 g/dL (30-55) 08/02/23: RDW 12.9 % (12.1-15.1) 08/02/23: Plt Count 291 10^3/cmm (157-399) 08/02/23: MPV 8.8 fL (7.4-10.4) 08/02/23: Neut % (Auto) 64.5 % 08/02/23: Lymph % (Auto) 25.9 % 08/02/23: [place] % (Auto) 8.3 % 08/02/23: Eos % (Auto) 0.7 % 08/02/23: Baso % (Auto) 0.4 % 08/02/23: Neut # (Auto) 5.33 10^3/uL (1.8-7.7) 08/02/23: Lymph # (Auto) 2.1 10^3/uL (0.8-4.8) 08/02/23 01: [place] # (Auto) 0.7 10^3/uL (0.2-0.9) 08/02/23: Eos # (Auto) 0.1 10^3/uL (0.0-0.8) 08/02/23: Baso # (Auto) 0.0 10^3/uL (0.0-0.1) 08/02/23: Nucleated RBC % (auto) 0 % 08/02/23: Nucleated RBCs # 0.0 /100WBC 08/02/23 01:27 Sodium 136 mmol/L (136-145) 08/02/23 01:27 Potassium 3.1 mmol/L (3.5-5.1) L 08/02/23 01:27 Chloride 98 mmol/L (98-107) 08/02/23 01:27 Carbon Dioxide 24 mmol/L (22-29) 08/02/23 01:27 Anion Gap 17.1 (5-19) 08/02/23 01:27 BUN 8 mg/dL (8-23) 08/02/23 01:27 Creatinine 0.6 mg/dL (0.5-0.9) 08/02/23 01:27 GFR Calculation 100.0 mL/min (90-130) 08/02/23 01:27 Glucose 184 mg/dL (65-115) H 08/02/23 01:27 Calculated Osmolality 285 mOsm/kg (285-295) 08/02/23 01:27 Lactic Acid 1.6 mmol/L (0.5-2.2) 08/02/23 01:27 Calcium 9.1 mg/dL (8.5-10.5) 08/02/23 01:27 Total Bilirubin 0.5 mg/dL (0.15-1.2) 08/02/23 01:27 AST 17 U/L (0-32) 08/02/23 01:27 ALT 24 U/L (0-33) 08/02/23 01:27 Alkaline Phosphatase 92 U/L (35-105) 08/02/23 01:27 Total Protein 7.0 g/dL (6.6-8.7) 08/02/23 01:27 Albumin 3.9 g/dL (3.5-5.2) 08/02/23 01:27 Globulin 3.1 g/dL (1.3-4.6) 08/02/23 01:27 Lipase 45 U/L (13-60) 08/02/23 01:27 Procalcitonin 0.05 ng/mL (0-0.5) 08/02/23 01:27 Urine Color Light yellow (Yellow) 08/02/23 02:02 Urine Appearance Cloudy (CLEAR) A 08/02/23 02:02 Urine pH 6 (5-7) 08/02/23 02:02 Ur Specific [place] 1.005 (1.005-1.030) 08/02/23 02:02 Urine Protein 1+ (Negative) H 08/02/23 02:02 Urine Glucose (UA) Norm (Normal) 08/02/23 02:02 Urine Ketones Negative (Negative) 08/02/23 02:02 Urine Blood 3+ (Negative) H 08/02/23 02:02 Urine Nitrate Negative (Negative) 08/02/23 02:02 Urine Bilirubin Neg (Negative) 08/02/23 02:02 Urine Urobilinogen Neg mg/dL (Negative) 08/02/23 02:02 Ur Leukocyte Esterase 2+ (Negative) H 08/02/23 02:02 Urine RBC 25-40 /hpf (0-2) H 08/02/23 02:02 Urine WBC 80-100 /hpf (0-5) H 08/02/23 02:02 Ur Squamous Epith Cells 0-4 /hpf (0-5) H 08/02/23 02:02 Amorphous Sediment Not Reportable 08/02/23 02:02 Urine Bacteria 1+ /hpf (NONE) H 08/02/23 02:02 All radiology interpretation(s) finalized by discharge Discharge Plan Discharge Patient Disposition: Home Clinical Impression: Cystitis Abdominal pain Qualifiers: Abdominal location: lower abdomen, unspecified Qualified Code(s): R10.30 - Lower abdominal pain, unspecified Condition: Stable Prescriptions: New hydrocodone-acetaminophen 5-325 mg tablet 1 tab PO Q8H PRN (Reason: pain) Qty: 14 0RF nitrofurantoin monohyd/m-cryst [Macrobid] 100 mg capsule 100 mg PO Q12H 7 Days Qty: 14 0RF Rx Instructions: must administer with a meal/food ondansetron HCl 4 mg tablet 4 mg PO Q12H 5 Days Qty: 10 0RF phenazopyridine [Pyridium] 200 mg tablet 200 mg PO Q8H Qty: 6 0RF No Action (DME) Diabetic Shoes with 3 sets of insoles See Rx Instructions .Route .MEDSUPPLY Qty: 1 0RF Rx Instructions: As directed by [facility] (DME) AFO to right See Rx Instructions .Route .MEDSUPPLY Qty: 1 0RF Rx Instructions: As directed by [facility] prochlorperazine maleate [Compazine] 10 mg tablet 10 mg PO Q6H PRN (Reason: mild nausea) Qty: 30 3RF lorazepam 1 mg tablet 0.5 - 1 mg PO Q6H PRN (Reason: severe nausea and vomiting) Qty: 30 3RF metformin 1,000 mg tablet 1,000 mg PO BID Qty: 180 3RF Hold Instructions: Resume on 05/30/23. amlodipine 10 mg Tablet 10 mg PO DAILY Qty: 30 0RF prochlorperazine maleate [Compazine] 10 mg tablet 10 mg PO Q4H PRN (Reason: Mild Nausea) Qty: 30 3RF losartan 50 mg tablet 50 mg PO DAILY carvedilol 25 mg tablet 25 mg PO BID Discharge Orders: Discharge ED (Routine); Ordered 08/02/23 Ordered By: Gee Canela Referrals: Debbie Vo FNP [Primary Care Provider] - Discharge Diet: Usual diet Discharge Activity: Resume usual activity Patient Instructions: Abdominal Pain (ED), Opioid Safety, Pain Management Activity Restrictions/Additional Instructions: Activity Restrictions/Additional Instructions: Thank you for choosing [facility] for your healthcare needs today. Please realize that you were seen in the Emergency Department and that we are providing you with an emergency medical screening exam and this may not be a complete and all inclusive of all the testing and or medical work-up that you may need to determine your ailment or severity of your illness. It is very important that you follow-up as instructed with your Primary care provider or Specialist for additional evaluation and to discuss your medical treatment plan. You may return to the Emergency Department should you have concerns or if your condition changes or worsens in any way. Coding Level of Care Code ED Ssn/Ssbn [employer] for [employer]
== END 2023-08-02 04:28 | disposition home or self-care (01) ==
PROVIDERS: Emergency Provider Internal Medicine; PCP Nurse Practitioner Family
DX: N30.90 Cystitis, unspecified without hematuria (principal); R10.30 Lower abdominal pain, unspecified; Z79.84 Long term (current) use of oral hypoglycemic drugs; E11.9 Type 2 diabetes mellitus without complications; I10 Essential (primary) hypertension; Z85.038 Personal history of other malignant neoplasm of large intestine
CPT/HCPCS: 74177; 80053; 81001; 83605; 83690; 84145; 85025; 87077; 87086; 87186; 96365; 96375; 99285; J0696; J2270; J2405; J7030; Q9967

== ENCOUNTER → 2023-08-07 12:56 | Outpatient (BNVA) | payer MEDICARE, SELFPAY | PROVIDERS: PCP Nurse Practitioner Family; Visit Provider Podiatrist Foot & Ankle Surgery | DX: E11.42 Type 2 diabetes mellitus with diabetic polyneuropathy (principal); M76.821 Posterior tibial tendinitis, right leg; M76.822 Posterior tibial tendinitis, left leg; Z79.84 Long term (current) use of oral hypoglycemic drugs | CPT/HCPCS: 99213 ==

== ENCOUNTER 2023-08-08 12:00 | Oncology outpatient (recurring) (ONCR) | payer MEDICARE, SELFPAY ==
[2023-07-16 10:36] LABS: Basophils % 0.6 %; Eosinophils # 0.1 10^3/uL (0.0-0.8); Eosinophils % 2.6 %; Hematocrit 37.7 % (36-47); Lymphocytes # 1.9 10^3/uL (0.8-4.8); Lymphocytes % 38.3 %; Mean Corpuscular Hemoglobin 30.1 pg (27-33); Mean Corpuscular Volume 88.7 fl (85-98); Monocytes # 0.3 10^3/uL (0.2-0.9); Monocytes % 6.9 %; Neutrophils # 2.53 10^3/uL (1.8-7.7); Neutrophils % 51.4 %; Nucleated Red Blood Cells % 0 %; Platelet Count 253 10^3/cmm (157-399); Red Blood Count 4.25 10^6/uL (3.85-5.65); Red Cell Distribution Width 12.5 % (12.1-15.1); White Blood Count 4.93 10^3/uL (3.29-11.43)
[2023-07-16 10:56] LABS: Alanine Aminotransferase 30 U/L (0-33); Albumin Level 3.8 g/dL (3.5-5.2); Alkaline Phosphatase 80 U/L (35-105); Anion Gap 17.9 (5-19); Aspartate Amino Transferase 21 U/L (0-32); Blood Urea Nitrogen 7 mg/dL (8-23); Calcium 8.6 mg/dL (8.5-10.5); Carbon Dioxide 24 mmol/L (22-29); Chloride 100 mmol/L (98-107); Globulin 2.8 g/dL (1.3-4.6); Glucose 192 mg/dL (65-115); Osmolality Calculated 289 mOsm/kg (285-295); Potassium 3.9 mmol/L (3.5-5.1); Sodium 138 mmol/L (136-145); Total Bilirubin 0.3 mg/dL (0.15-1.2); Total Protein 6.6 g/dL (6.6-8.7)
[2023-07-23 08:49] LABS: Basophils % 0.4 %; Eosinophils # 0.2 10^3/uL (0.0-0.8); Eosinophils % 3.9 %; Hematocrit 38.6 % (36-47); Lymphocytes # 1.5 10^3/uL (0.8-4.8); Lymphocytes % 30.4 %; Mean Corpuscular HGB Conc 33.2 g/dL (30-55); Mean Corpuscular Hemoglobin 29.6 pg (27-33); Mean Corpuscular Volume 89.4 fl (85-98); Mean Platelet Volume 8.4 fL (7.4-10.4); Monocytes # 0.4 10^3/uL (0.2-0.9); Monocytes % 7.5 %; Neutrophils # 2.84 10^3/uL (1.8-7.7); Neutrophils % 57.6 %; Nucleated Red Blood Cells % 0 %; Platelet Count 266 10^3/cmm (157-399); Red Blood Count 4.32 10^6/uL (3.85-5.65); White Blood Count 4.93 10^3/uL (3.29-11.43)
[2023-07-23 09:13] LABS: Alanine Aminotransferase 24 U/L (0-33); Albumin Level 3.8 g/dL (3.5-5.2); Alkaline Phosphatase 80 U/L (35-105); Anion Gap 16.9 (5-19); Aspartate Amino Transferase 17 U/L (0-32); Blood Urea Nitrogen 7 mg/dL (8-23); Calcium 8.5 mg/dL (8.5-10.5); Carbon Dioxide 24 mmol/L (22-29); Chloride 103 mmol/L (98-107); Globulin 2.8 g/dL (1.3-4.6); Glucose 186 mg/dL (65-115); Osmolality Calculated 293 mOsm/kg (285-295); Potassium 3.9 mmol/L (3.5-5.1); Sodium 140 mmol/L (136-145); Total Bilirubin 0.3 mg/dL (0.15-1.2); Total Protein 6.6 g/dL (6.6-8.7)
[2023-07-23] MEDS: palonosetron 0.25 mg/5 mL SDV IVP (10:35)
[2023-07-23] MEDS: dextrose 5% 250 ML 75 ML IV (10:35)
[2023-07-23] MEDS: leucovorin 850 MG in dextrose 5% 250 ML 140 MG IV (11:23)
[2023-07-23] MEDS: oxaliplatin 182 MG in dextrose 5% 250 ML 143.199999999999989 MG IV (11:24)
[2023-07-23 11:29] LABS: Carcinoembryonic Antigen 2.4 ng/mL (0.0-4.7)
[2023-07-23] MEDS: fluorouraciL 5,100 MG, elastomeric pump 1 PUMP in sodium chloride 0.9% (100 ml) 128 ML IV (13:43)
[2023-07-23] MEDS: fluorouraciL 50 mg/ml MDV 100 mL 850 MG IVP (13:43)
[2023-07-23 13:54] VITALS: BP 155/82; PULSE 80; RESP 18; TEMP 36.1; O2SAT 98
[2023-07-25 15:05] VITALS: BP 129/81; PULSE 66; RESP 18; TEMP 36.6; O2SAT 96
[2023-08-06 08:26] LABS: Basophils % 0.7 %; Eosinophils # 0.1 10^3/uL (0.0-0.8); Eosinophils % 2.5 %; Hematocrit 37.4 % (36-47); Lymphocytes # 1.5 10^3/uL (0.8-4.8); Lymphocytes % 34.1 %; Mean Corpuscular HGB Conc 33.4 g/dL (30-55); Mean Corpuscular Hemoglobin 29.3 pg (27-33); Mean Corpuscular Volume 87.8 fl (85-98); Mean Platelet Volume 8.4 fL (7.4-10.4); Monocytes # 0.5 10^3/uL (0.2-0.9); Monocytes % 10.9 %; Neutrophils # 2.27 10^3/uL (1.8-7.7); Neutrophils % 51.6 %; Nucleated Red Blood Cells % 0 %; Platelet Count 264 10^3/cmm (157-399); Red Blood Count 4.26 10^6/uL (3.85-5.65); Red Cell Distribution Width 13.2 % (12.1-15.1)
[2023-08-06 09:06] LABS: Alanine Aminotransferase 17 U/L (0-33); Albumin Level 3.7 g/dL (3.5-5.2); Alkaline Phosphatase 84 U/L (35-105); Anion Gap 16.2 (5-19); Aspartate Amino Transferase 14 U/L (0-32); Blood Urea Nitrogen 7 mg/dL (8-23); Calcium 9.1 mg/dL (8.5-10.5); Carbon Dioxide 27 mmol/L (22-29); Chloride 99 mmol/L (98-107); Creatinine Clr Calc Pharmacy 85.0146; Globulin 3.1 g/dL (1.3-4.6); Glucose 163 mg/dL (65-115); Osmolality Calculated 290 mOsm/kg (285-295); Potassium 3.2 mmol/L (3.5-5.1); Sodium 139 mmol/L (136-145); Total Bilirubin 0.3 mg/dL (0.15-1.2); Total Protein 6.8 g/dL (6.6-8.7)
[2023-08-06] MEDS: dextrose 5% 250 ML 75 ML IV (10:23)
[2023-08-06] MEDS: palonosetron 0.25 mg/5 mL SDV IVP (10:23)
[2023-08-06] MEDS: oxaliplatin 182 MG in dextrose 5% 250 ML 143.199999999999989 MG IV (11:12)
[2023-08-06] MEDS: leucovorin 850 MG in dextrose 5% 250 ML 62.5 MG IV (11:12)
[2023-08-06 11:40] LABS: Magnesium 1.5 mg/dL (1.7-2.3)
[2023-08-06] MEDS: fluorouraciL 50 mg/ml MDV 100 mL 850 MG IVP (13:59)
[2023-08-06] MEDS: fluorouraciL 5,100 MG, elastomeric pump 1 PUMP in sodium chloride 0.9% (100 ml) 128 ML IV (14:07)
[2023-08-08 12:17] VITALS: BP 187/70; PULSE 74; RESP 16; TEMP 35.9; O2SAT 95
== END 2023-08-12 23:59 | disposition home or self-care (01) ==
PROVIDERS: Internal Medicine; Nurse Practitioner Family; PCP Nurse Practitioner Family; Visit Provider Nurse Practitioner Family
DX: Z45.1 Encounter for adjustment and management of infusion pump (principal); Z53.9 Procedure and treatment not carried out, unspecified reason
CPT/HCPCS: 36415; 80053; 82378; 83735; 85025; 96365; 96367; 96368; 96375; 96411; 96413; 96415; 96416; 96523; 99214; 99215; J0640; J1100; J1642; J2469; J7060; J9190; J9263

== ENCOUNTER 2023-09-05 11:00 | Oncology outpatient (recurring) (ONCR) | payer MEDICARE, SELFPAY ==
[2023-08-20 09:09] LABS: Basophils # 0.1 10^3/uL (0.0-0.1); Eosinophils # 0.1 10^3/uL (0.0-0.8); Eosinophils % 2.4 %; Hematocrit 38.2 % (36-47); Lymphocytes # 1.6 10^3/uL (0.8-4.8); Lymphocytes % 32.9 %; Mean Corpuscular HGB Conc 33.2 g/dL (30-55); Mean Corpuscular Hemoglobin 29.8 pg (27-33); Mean Corpuscular Volume 89.7 fl (85-98); Mean Platelet Volume 8.6 fL (7.4-10.4); Monocytes # 0.5 10^3/uL (0.2-0.9); Monocytes % 10.3 %; Neutrophils # 2.61 10^3/uL (1.8-7.7); Nucleated Red Blood Cells % 0 %; Platelet Count 202 10^3/cmm (157-399); Red Blood Count 4.26 10^6/uL (3.85-5.65); Red Cell Distribution Width 15.1 % (12.1-15.1); White Blood Count 4.93 10^3/uL (3.29-11.43)
[2023-08-20 09:26] LABS: Alanine Aminotransferase 23 U/L (0-33); Albumin Level 3.9 g/dL (3.5-5.2); Alkaline Phosphatase 79 U/L (35-105); Anion Gap 16.8 (5-19); Aspartate Amino Transferase 27 U/L (0-32); Blood Urea Nitrogen 14 mg/dL (8-23); Calcium 9.2 mg/dL (8.5-10.5); Carbon Dioxide 21 mmol/L (22-29); Chloride 104 mmol/L (98-107); Globulin 2.8 g/dL (1.3-4.6); Glucose 188 mg/dL (65-115); Osmolality Calculated 289 mOsm/kg (285-295); Potassium 4.8 mmol/L (3.5-5.1); Sodium 137 mmol/L (136-145); Total Bilirubin 0.4 mg/dL (0.15-1.2); Total Protein 6.7 g/dL (6.6-8.7)
[2023-08-20] MEDS: dextrose 5% 250 ML 75 ML IV (11:04)
[2023-08-20] MEDS: palonosetron 0.25 mg/5 mL SDV IVP (11:07)
[2023-08-20] MEDS: oxaliplatin 182 MG in dextrose 5% 250 ML 143.199999999999989 MG IV (11:45)
[2023-08-20] MEDS: leucovorin 850 MG in dextrose 5% 250 ML 62.5 MG IV (11:45)
[2023-08-20] MEDS: fluorouraciL 50 mg/ml MDV 100 mL 850 MG IVP (14:18)
[2023-08-20] MEDS: fluorouraciL 5,100 MG, elastomeric pump 1 PUMP in sodium chloride 0.9% (100 ml) 128 ML IV (14:19)
[2023-08-20 14:20] VITALS: BP 152/85; PULSE 78; RESP 17; O2SAT 98
[2023-08-22 12:24] VITALS: BP 133/77; PULSE 67
[2023-09-03 08:14] LABS: Basophils % 0.6 %; Eosinophils # 0.1 10^3/uL (0.0-0.8); Eosinophils % 1.6 %; Hematocrit 38.2 % (36-47); Lymphocytes # 1.5 10^3/uL (0.8-4.8); Lymphocytes % 30.2 %; Mean Corpuscular HGB Conc 33.5 g/dL (30-55); Mean Corpuscular Hemoglobin 30.5 pg (27-33); Mean Corpuscular Volume 91.2 fl (85-98); Mean Platelet Volume 8.9 fL (7.4-10.4); Monocytes # 0.5 10^3/uL (0.2-0.9); Monocytes % 10.7 %; Neutrophils % 56.5 %; Nucleated Red Blood Cells % 0 %; Platelet Count 149 10^3/cmm (157-399); Red Blood Count 4.19 10^6/uL (3.85-5.65); Red Cell Distribution Width 16.3 % (12.1-15.1); White Blood Count 4.96 10^3/uL (3.29-11.43)
[2023-09-03 08:40] LABS: Carcinoembryonic Antigen 3.6 ng/mL (0.0-4.7)
[2023-09-03 08:51] LABS: Alanine Aminotransferase 21 U/L (0-33); Albumin Level 3.9 g/dL (3.5-5.2); Alkaline Phosphatase 84 U/L (35-105); Anion Gap 14.5 (5-19); Aspartate Amino Transferase 19 U/L (0-32); Blood Urea Nitrogen 10 mg/dL (8-23); Calcium 9.4 mg/dL (8.5-10.5); Carbon Dioxide 25 mmol/L (22-29); Chloride 103 mmol/L (98-107); Creatinine Clr Calc Pharmacy 83.9497; Globulin 2.7 g/dL (1.3-4.6); Glucose 155 mg/dL (65-115); Osmolality Calculated 288 mOsm/kg (285-295); Potassium 4.5 mmol/L (3.5-5.1); Sodium 138 mmol/L (136-145); Total Bilirubin 0.5 mg/dL (0.15-1.2); Total Protein 6.6 g/dL (6.6-8.7)
[2023-09-03] MEDS: dextrose 5% 250 ML 75 ML IV (10:02)
[2023-09-03] MEDS: palonosetron 0.25 mg/5 mL SDV IVP (10:03)
[2023-09-03] MEDS: oxaliplatin 182 MG in dextrose 5% 250 ML 143.199999999999989 MG IV (10:46)
[2023-09-03] MEDS: leucovorin 850 MG in dextrose 5% 250 ML 62.5 MG IV (10:46)
[2023-09-03] MEDS: fluorouraciL 50 mg/ml MDV 100 mL 850 MG IVP (13:01)
[2023-09-03 13:05] VITALS: BP 154/91; PULSE 77; RESP 16; TEMP 36.7; O2SAT 94
[2023-09-03] MEDS: fluorouraciL 5,100 MG, elastomeric pump 1 PUMP in sodium chloride 0.9% (100 ml) 128 ML IV (13:10)
== END 2023-09-11 23:59 | disposition home or self-care (01) ==
PROVIDERS: Internal Medicine; Nurse Practitioner Family; PCP Nurse Practitioner Family; Visit Provider Nurse Practitioner Family
DX: Z45.1 Encounter for adjustment and management of infusion pump (principal); Z53.9 Procedure and treatment not carried out, unspecified reason
CPT/HCPCS: 36415; 80053; 82378; 85025; 96367; 96368; 96375; 96409; 96411; 96413; 96415; 96416; 96417; 96523; 99214; 99215; J0640; J1100; J2469; J7060; J9190; J9263

== ENCOUNTER 2023-10-10 10:30 | Oncology outpatient (recurring) (ONCR) | payer MEDICARE, SELFPAY ==
[2023-09-17 08:17] LABS: Basophils % 0.5 %; Eosinophils # 0.1 10^3/uL (0.0-0.8); Eosinophils % 1.5 %; Hematocrit 36.4 % (36-47); Lymphocytes # 1.5 10^3/uL (0.8-4.8); Lymphocytes % 37.7 %; Mean Corpuscular HGB Conc 34.6 g/dL (30-55); Mean Corpuscular Hemoglobin 31.7 pg (27-33); Mean Corpuscular Volume 91.7 fl (85-98); Mean Platelet Volume 9.2 fL (7.4-10.4); Monocytes # 0.5 10^3/uL (0.2-0.9); Monocytes % 12.5 %; Neutrophils # 1.91 10^3/uL (1.8-7.7); Neutrophils % 47.6 %; Nucleated Red Blood Cells % 0 %; Platelet Count 152 10^3/cmm (157-399); Red Blood Count 3.97 10^6/uL (3.85-5.65); Red Cell Distribution Width 17.2 % (12.1-15.1); White Blood Count 4.01 10^3/uL (3.29-11.43)
[2023-09-17 08:35] LABS: Alanine Aminotransferase 26 U/L (0-33); Albumin Level 3.8 g/dL (3.5-5.2); Alkaline Phosphatase 87 U/L (35-105); Aspartate Amino Transferase 26 U/L (0-32); Blood Urea Nitrogen 9 mg/dL (8-23); Calcium 8.6 mg/dL (8.5-10.5); Carbon Dioxide 23 mmol/L (22-29); Chloride 104 mmol/L (98-107); Globulin 2.9 g/dL (1.3-4.6); Glucose 154 mg/dL (65-115); Osmolality Calculated 294 mOsm/kg (285-295); Sodium 141 mmol/L (136-145); Total Bilirubin 0.3 mg/dL (0.15-1.2); Total Protein 6.7 g/dL (6.6-8.7)
[2023-09-17 08:47] LABS: Anion Gap 18.3 (5-19); Potassium 4.3 mmol/L (3.5-5.1)
[2023-09-17] MEDS: dextrose 5% 250 ML 75 ML IV (09:55)
[2023-09-17] MEDS: palonosetron 0.25 mg/5 mL SDV IVP (09:56)
[2023-09-17] MEDS: oxaliplatin 100 MG, oxaliplatin 70 MG in dextrose 5% 250 ML 142 MG IV (10:39)
[2023-09-17] MEDS: leucovorin 800 MG in dextrose 5% 250 ML 62.5 MG IV (10:39)
[2023-09-17] MEDS: fluorouraciL 50 mg/ml MDV 100 mL 800 MG IVP (12:58)
[2023-09-17] MEDS: FLUOROURACIL IV (13:06)
[2023-09-17] MEDS: ELASTOMERIC PUMP PUMP IV (13:06)
[2023-10-03 07:55] LABS: Basophils % 0.8 %; Eosinophils % 0.8 %; Hematocrit 35.1 % (36-47); Lymphocytes # 1.5 10^3/uL (0.8-4.8); Lymphocytes % 38.7 %; Mean Corpuscular HGB Conc 33.6 g/dL (30-55); Mean Corpuscular Hemoglobin 31.6 pg (27-33); Mean Corpuscular Volume 94.1 fl (85-98); Mean Platelet Volume 8.9 fL (7.4-10.4); Monocytes # 0.8 10^3/uL (0.2-0.9); Monocytes % 19.8 %; Neutrophils # 1.55 10^3/uL (1.8-7.7); Neutrophils % 39.4 %; Nucleated Red Blood Cells % 0 %; Platelet Count 282 10^3/cmm (157-399); Red Blood Count 3.73 10^6/uL (3.85-5.65); Red Cell Distribution Width 16.6 % (12.1-15.1); White Blood Count 3.93 10^3/uL (3.29-11.43)
[2023-10-03 08:11] LABS: Alanine Aminotransferase 26 U/L (0-33); Albumin Level 3.6 g/dL (3.5-5.2); Alkaline Phosphatase 97 U/L (35-105); Anion Gap 16.9 (5-19); Aspartate Amino Transferase 24 U/L (0-32); Blood Urea Nitrogen 6 mg/dL (8-23); Calcium 8.4 mg/dL (8.5-10.5); Carbon Dioxide 26 mmol/L (22-29); Chloride 101 mmol/L (98-107); Creatinine Clr Calc Pharmacy 77.2569; Globulin 3.1 g/dL (1.3-4.6); Glomerular Filtration Rate 123.4 mL/min (90-130); Glucose 159 mg/dL (65-115); Osmolality Calculated 291 mOsm/kg (285-295); Potassium 3.9 mmol/L (3.5-5.1); Sodium 140 mmol/L (136-145); Total Bilirubin 0.5 mg/dL (0.15-1.2); Total Protein 6.7 g/dL (6.6-8.7)
[2023-10-03 09:18] LABS: Carcinoembryonic Antigen 3.7 ng/mL (0.0-4.7)
[2023-10-03] MEDS: dextrose 5% 250 ML 75 ML IV (11:02)
[2023-10-03] MEDS: palonosetron 0.25 mg/5 mL SDV IVP (11:02)
[2023-10-03] MEDS: leucovorin 840 MG in dextrose 5% 250 ML 62.5 MG IV (11:40)
[2023-10-03] MEDS: oxaliplatin 180 MG in dextrose 5% 250 ML 143 MG IV (11:40)
[2023-10-03] MEDS: fluorouraciL 50 mg/ml MDV 100 mL 850 MG IVP (14:02)
[2023-10-03] MEDS: fluorouraciL 5,050 MG, elastomeric pump 1 PUMP in sodium chloride 0.9% (100 ml) 129 ML IV (14:13)
[2023-10-03 14:22] VITALS: BP 171/85; PULSE 71; RESP 18; TEMP 36.8; O2SAT 97
[2023-10-05 07:42] VITALS: BP 148/86; PULSE 76; RESP 17; TEMP 36.2; O2SAT 97
[2023-10-10 10:38] VITALS: BP 158/71; PULSE 71; RESP 16; TEMP 36.4; O2SAT 99
[2023-10-10 11:03] LABS: Basophils % 0.8 %; Eosinophils % 0.8 %; Hematocrit 34.6 % (36-47); Lymphocytes # 2.1 10^3/uL (0.8-4.8); Lymphocytes % 42.3 %; Mean Corpuscular HGB Conc 33.5 g/dL (30-55); Mean Corpuscular Hemoglobin 31.4 pg (27-33); Mean Corpuscular Volume 93.8 fl (85-98); Mean Platelet Volume 8.8 fL (7.4-10.4); Monocytes # 0.3 10^3/uL (0.2-0.9); Monocytes % 5.9 %; Neutrophils # 2.42 10^3/uL (1.8-7.7); Neutrophils % 49.6 %; Nucleated Red Blood Cells % 0 %; Platelet Count 259 10^3/cmm (157-399); Red Blood Count 3.69 10^6/uL (3.85-5.65); Red Cell Distribution Width 15.6 % (12.1-15.1); White Blood Count 4.89 10^3/uL (3.29-11.43)
[2023-10-10 11:20] LABS: Alanine Aminotransferase 22 U/L (0-33); Albumin Level 3.4 g/dL (3.5-5.2); Alkaline Phosphatase 97 U/L (35-105); Anion Gap 16.6 (5-19); Aspartate Amino Transferase 23 U/L (0-32); Blood Urea Nitrogen 7 mg/dL (8-23); Calcium 8.5 mg/dL (8.5-10.5); Carbon Dioxide 21 mmol/L (22-29); Chloride 106 mmol/L (98-107); Globulin 3.4 g/dL (1.3-4.6); Glomerular Filtration Rate 123.4 mL/min (90-130); Glucose 151 mg/dL (65-115); Osmolality Calculated 289 mOsm/kg (285-295); Potassium 4.6 mmol/L (3.5-5.1); Sodium 139 mmol/L (136-145); Total Bilirubin 0.3 mg/dL (0.15-1.2); Total Protein 6.8 g/dL (6.6-8.7)
== END 2023-10-12 23:59 | disposition home or self-care (01) ==
PROVIDERS: Internal Medicine Hematology & Oncology; Nurse Practitioner Family; PCP Nurse Practitioner Family; Visit Provider Nurse Practitioner Family
DX: Z53.9 Procedure and treatment not carried out, unspecified reason (principal); C18.9 Malignant neoplasm of colon, unspecified
CPT/HCPCS: 36591; 80053; 82378; 85025; 96365; 96366; 96367; 96368; 96375; 96409; 96411; 96413; 96415; 96416; 96523; 99214; J0640; J1100; J2469; J7060; J9190; J9263

== ENCOUNTER 2023-11-01 14:00 | Oncology outpatient (recurring) (ONCR) | payer MEDICARE, SELFPAY ==
[2023-10-17 08:00] LABS: Basophils % 0.7 %; Eosinophils # 0.1 10^3/uL (0.0-0.8); Eosinophils % 1.1 %; Hematocrit 35.5 % (36-47); Lymphocytes # 1.8 10^3/uL (0.8-4.8); Lymphocytes % 39.1 %; Mean Corpuscular HGB Conc 33.5 g/dL (30-55); Mean Corpuscular Hemoglobin 32.1 pg (27-33); Mean Corpuscular Volume 95.7 fl (85-98); Mean Platelet Volume 9.3 fL (7.4-10.4); Monocytes # 0.6 10^3/uL (0.2-0.9); Monocytes % 14.1 %; Neutrophils # 2.01 10^3/uL (1.8-7.7); Neutrophils % 44.8 %; Nucleated Red Blood Cells % 0 %; Platelet Count 217 10^3/cmm (157-399); Red Blood Count 3.71 10^6/uL (3.85-5.65); Red Cell Distribution Width 16.3 % (12.1-15.1); White Blood Count 4.48 10^3/uL (3.29-11.43)
[2023-10-17 08:19] LABS: Alanine Aminotransferase 20 U/L (0-33); Albumin Level 3.6 g/dL (3.5-5.2); Alkaline Phosphatase 105 U/L (35-105); Anion Gap 18.1 (5-19); Aspartate Amino Transferase 26 U/L (0-32); Blood Urea Nitrogen 9 mg/dL (8-23); Calcium 9.1 mg/dL (8.5-10.5); Carbon Dioxide 22 mmol/L (22-29); Chloride 105 mmol/L (98-107); Globulin 3.2 g/dL (1.3-4.6); Glucose 173 mg/dL (65-115); Osmolality Calculated 295 mOsm/kg (285-295); Potassium 4.1 mmol/L (3.5-5.1); Sodium 141 mmol/L (136-145); Total Bilirubin 0.4 mg/dL (0.15-1.2); Total Protein 6.8 g/dL (6.6-8.7)
[2023-10-17] MEDS: palonosetron 0.25 mg/5 mL SDV IVP (10:03)
[2023-10-17] MEDS: dextrose 5% 250 ML 75 ML IV (10:03)
[2023-10-17] MEDS: oxaliplatin 180 MG in dextrose 5% 250 ML 143 MG IV (10:37)
[2023-10-17] MEDS: leucovorin 840 MG in dextrose 5% 250 ML 62.5 MG IV (10:38)
[2023-10-17] MEDS: fluorouraciL 50 mg/ml MDV 100 mL 850 MG IVP (13:05)
[2023-10-17] MEDS: fluorouraciL 5,050 MG, elastomeric pump 1 PUMP in sodium chloride 0.9% (100 ml) 129 ML IV (13:06)
[2023-10-17 13:29] VITALS: BP 141/92; PULSE 71; RESP 18; TEMP 36.2; O2SAT 99
[2023-10-30 07:45] LABS: Basophils % 0.5 %; Eosinophils # 0.1 10^3/uL (0.0-0.8); Eosinophils % 1.8 %; Hematocrit 34.6 % (36-47); Lymphocytes # 1.6 10^3/uL (0.8-4.8); Lymphocytes % 36.2 %; Mean Corpuscular HGB Conc 34.1 g/dL (30-55); Mean Corpuscular Volume 96.6 fl (85-98); Mean Platelet Volume 9.1 fL (7.4-10.4); Monocytes # 0.5 10^3/uL (0.2-0.9); Monocytes % 11.4 %; Neutrophils # 2.18 10^3/uL (1.8-7.7); Neutrophils % 49.6 %; Nucleated Red Blood Cells % 0 %; Platelet Count 147 10^3/cmm (157-399); Red Blood Count 3.58 10^6/uL (3.85-5.65); Red Cell Distribution Width 16.1 % (12.1-15.1); White Blood Count 4.39 10^3/uL (3.29-11.43)
[2023-10-30 08:02] LABS: Alanine Aminotransferase 24 U/L (0-33); Albumin Level 3.6 g/dL (3.5-5.2); Alkaline Phosphatase 104 U/L (35-105); Anion Gap 17.8 (5-19); Aspartate Amino Transferase 29 U/L (0-32); Blood Urea Nitrogen 8 mg/dL (8-23); Calcium 8.8 mg/dL (8.5-10.5); Carbon Dioxide 22 mmol/L (22-29); Chloride 102 mmol/L (98-107); Creatinine Clr Calc Pharmacy 82.1208; Globulin 2.8 g/dL (1.3-4.6); Glucose 153 mg/dL (65-115); Osmolality Calculated 287 mOsm/kg (285-295); Potassium 3.8 mmol/L (3.5-5.1); Sodium 138 mmol/L (136-145); Total Bilirubin 0.4 mg/dL (0.15-1.2); Total Protein 6.4 g/dL (6.6-8.7)
[2023-10-30] MEDS: dextrose 5% 250 ML 75 ML IV (09:17)
[2023-10-30] MEDS: palonosetron 0.25 mg/5 mL SDV IVP (09:18)
[2023-10-30] MEDS: dexamethasone 4 mg/mL INJ 5 mL 12 MG IVP (09:22)
[2023-10-30 09:58] LABS: Carcinoembryonic Antigen 4.5 ng/mL (0.0-4.7)
[2023-10-30] MEDS: leucovorin 840 MG in dextrose 5% 250 ML 62.5 MG IV (10:13)
[2023-10-30] MEDS: oxaliplatin 180 MG in dextrose 5% 250 ML 143 MG IV (10:14)
[2023-10-30] MEDS: fluorouraciL 50 mg/ml MDV 100 mL 850 MG IVP (12:32)
[2023-10-30] MEDS: fluorouraciL 5,050 MG, elastomeric pump 1 PUMP in sodium chloride 0.9% (100 ml) 129 ML IV (12:40)
[2023-10-30 12:45] VITALS: BP 170/81; PULSE 69; RESP 16; TEMP 36.4; O2SAT 96
[2023-11-01 13:59] VITALS: BP 151/84; PULSE 69; O2SAT 99
== END 2023-11-11 23:59 | disposition home or self-care (01) ==
PROVIDERS: Internal Medicine Hematology & Oncology; Nurse Practitioner Family; PCP Nurse Practitioner Family; Visit Provider Nurse Practitioner Family
DX: Z45.1 Encounter for adjustment and management of infusion pump; Z53.9 Procedure and treatment not carried out, unspecified reason
CPT/HCPCS: 80053; 82378; 85025; 96367; 96368; 96375; 96411; 96413; 96415; 96416; 96523; 99214; J0640; J1100; J2469; J7060; J9190; J9263

== ENCOUNTER 2023-12-04 10:30 | Oncology outpatient (recurring) (ONCR) | payer MEDICARE, SELFPAY ==
[2023-11-12 08:27] LABS: Basophils % 0.5 %; Eosinophils % 0.9 %; Hematocrit 33.7 % (36-47); Lymphocytes # 1.5 10^3/uL (0.8-4.8); Lymphocytes % 36.3 %; Mean Corpuscular HGB Conc 33.5 g/dL (30-55); Mean Corpuscular Volume 98.5 fl (85-98); Monocytes # 0.5 10^3/uL (0.2-0.9); Monocytes % 12.1 %; Neutrophils # 2.11 10^3/uL (1.8-7.7); Nucleated Red Blood Cells % 0 %; Platelet Count 118 10^3/cmm (157-399); Red Blood Count 3.42 10^6/uL (3.85-5.65); Red Cell Distribution Width 15.3 % (12.1-15.1); White Blood Count 4.22 10^3/uL (3.29-11.43)
[2023-11-12 08:52] LABS: Alanine Aminotransferase 23 U/L (0-33); Albumin Level 3.6 g/dL (3.5-5.2); Alkaline Phosphatase 101 U/L (35-105); Aspartate Amino Transferase 28 U/L (0-32); Blood Urea Nitrogen 11 mg/dL (8-23); Calcium 8.7 mg/dL (8.5-10.5); Carbon Dioxide 21 mmol/L (22-29); Chloride 105 mmol/L (98-107); Globulin 2.6 g/dL (1.3-4.6); Glucose 166 mg/dL (65-115); Osmolality Calculated 291 mOsm/kg (285-295); Sodium 139 mmol/L (136-145); Total Bilirubin 0.4 mg/dL (0.15-1.2); Total Protein 6.2 g/dL (6.6-8.7)
[2023-11-12 08:53] LABS: Anion Gap 16.7 (5-19); Potassium 3.7 mmol/L (3.5-5.1)
[2023-11-12 09:35] VITALS: BP 138/83; PULSE 76; RESP 16; TEMP 36.3; O2SAT 96
[2023-11-12] MEDS: dextrose 5% 250 ML 75 ML IV (09:45)
[2023-11-12] MEDS: palonosetron 0.25 mg/5 mL SDV IVP (09:45)
[2023-11-12] MEDS: leucovorin 840 MG in dextrose 5% 250 ML 62.5 MG IV (11:03)
[2023-11-12] MEDS: OXALIPLATIN IV (11:04)
[2023-11-12] MEDS: DEXTROSE 5% IV (11:04)
[2023-11-12 13:35] VITALS: BP 154/85; PULSE 68; TEMP 36.3; O2SAT 97
[2023-11-12] MEDS: fluorouraciL 50 mg/ml MDV 100 mL 850 MG IVP (13:37)
[2023-11-12] MEDS: fluorouraciL 5,050 MG, elastomeric pump 1 PUMP in sodium chloride 0.9% (100 ml) 129 ML IV (13:45)
[2023-11-14 11:15] VITALS: BP 120/78; PULSE 72; RESP 18; TEMP 36.6; O2SAT 96
[2023-11-26 08:13] LABS: Basophils % 0.7 %; Eosinophils % 1.4 %; Hematocrit 35.4 % (36-47); Lymphocytes # 1.1 10^3/uL (0.8-4.8); Lymphocytes % 36.3 %; Mean Corpuscular HGB Conc 33.6 g/dL (30-55); Mean Corpuscular Hemoglobin 32.6 pg (27-33); Mean Platelet Volume 9.6 fL (7.4-10.4); Monocytes # 0.6 10^3/uL (0.2-0.9); Monocytes % 18.8 %; Neutrophils # 1.23 10^3/uL (1.8-7.7); Neutrophils % 42.1 %; Nucleated Red Blood Cells % 0 %; Platelet Count 118 10^3/cmm (157-399); Red Blood Count 3.65 10^6/uL (3.85-5.65); Red Cell Distribution Width 14.7 % (12.1-15.1); White Blood Count 2.92 10^3/uL (3.29-11.43)
[2023-11-26 08:29] LABS: Carcinoembryonic Antigen 4.8 ng/mL (0.0-4.7)
[2023-11-26 08:40] LABS: Alanine Aminotransferase 26 U/L (0-33); Albumin Level 3.6 g/dL (3.5-5.2); Alkaline Phosphatase 103 U/L (35-105); Anion Gap 19.4 (5-19); Aspartate Amino Transferase 30 U/L (0-32); Blood Urea Nitrogen 5 mg/dL (8-23); Calcium 8.7 mg/dL (8.5-10.5); Carbon Dioxide 21 mmol/L (22-29); Chloride 101 mmol/L (98-107); Globulin 3.1 g/dL (1.3-4.6); Glucose 152 mg/dL (65-115); Osmolality Calculated 286 mOsm/kg (285-295); Potassium 3.4 mmol/L (3.5-5.1); Sodium 138 mmol/L (136-145); Total Bilirubin 0.5 mg/dL (0.15-1.2); Total Protein 6.7 g/dL (6.6-8.7)
[2023-11-26 10:00] VITALS: BP 166/84; PULSE 75; RESP 16; TEMP 36.4; O2SAT 99
[2023-11-26] MEDS: dextrose 5% 250 ML 75 ML IV (10:14)
[2023-11-26] MEDS: palonosetron 0.25 mg/5 mL SDV IVP (10:16)
[2023-11-26] MEDS: DEXTROSE 5% IV (11:23)
[2023-11-26] MEDS: OXALIPLATIN IV (11:23)
[2023-11-26] MEDS: leucovorin 840 MG in dextrose 5% 250 ML 62.5 MG IV (11:23)
[2023-11-26] MEDS: fluorouraciL 5,050 MG, elastomeric pump 1 PUMP in sodium chloride 0.9% (100 ml) 129 ML IV (13:59)
[2023-11-26 14:00] VITALS: BP 166/83; PULSE 80; RESP 16; TEMP 36.5; O2SAT 99
[2023-11-28 14:59] VITALS: BP 150/83; PULSE 94; RESP 16; O2SAT 97
[2023-12-04 10:47] LABS: Eosinophils # 0.1 10^3/uL (0.0-0.8); Eosinophils % 1.2 %; Hematocrit 34.9 % (36-47); Lymphocytes % 49.5 %; Mean Corpuscular HGB Conc 34.4 g/dL (30-55); Mean Corpuscular Hemoglobin 33.3 pg (27-33); Mean Corpuscular Volume 96.9 fl (85-98); Mean Platelet Volume 9.2 fL (7.4-10.4); Monocytes # 0.4 10^3/uL (0.2-0.9); Monocytes % 10.5 %; Neutrophils % 36.6 %; Nucleated Red Blood Cells % 0 %; Platelet Count 132 10^3/cmm (157-399); Red Cell Distribution Width 13.8 % (12.1-15.1)
[2023-12-04 11:04] LABS: Alanine Aminotransferase 29 U/L (0-33); Albumin Level 3.8 g/dL (3.5-5.2); Alkaline Phosphatase 110 U/L (35-105); Aspartate Amino Transferase 29 U/L (0-32); Blood Urea Nitrogen 5 mg/dL (8-23); Calcium 8.8 mg/dL (8.5-10.5); Carbon Dioxide 22 mmol/L (22-29); Chloride 105 mmol/L (98-107); Creatinine Clr Calc Pharmacy 82.4244; Glomerular Filtration Rate 123.1 mL/min (90-130); Glucose 184 mg/dL (65-115); Osmolality Calculated 296 mOsm/kg (285-295); Sodium 142 mmol/L (136-145); Total Bilirubin 0.3 mg/dL (0.15-1.2); Total Protein 6.8 g/dL (6.6-8.7)
[2023-12-04 11:22] LABS: Anion Gap 18.8 (5-19); Potassium 3.8 mmol/L (3.5-5.1)
== END 2023-12-12 23:59 | disposition home or self-care (01) ==
PROVIDERS: Internal Medicine; Nurse Practitioner Family; PCP Nurse Practitioner Family; Visit Provider Nurse Practitioner Family
DX: Z53.9 Procedure and treatment not carried out, unspecified reason (principal); C18.9 Malignant neoplasm of colon, unspecified
CPT/HCPCS: 36591; 80053; 82378; 85025; 96368; 96375; 96409; 96413; 96415; 96416; 96523; 99213; 99214; J0640; J1100; J2469; J7060; J9190; J9263

== ENCOUNTER 2024-01-07 13:29 | Oncology outpatient (recurring) (ONCR) | payer MEDICARE, SELFPAY ==
[2024-01-07 14:04] LABS: Basophils % 0.6 %; Eosinophils # 0.1 10^3/uL (0.0-0.8); Hematocrit 36.6 % (36-47); Lymphocytes # 1.9 10^3/uL (0.8-4.8); Lymphocytes % 35.4 %; Mean Corpuscular HGB Conc 33.9 g/dL (30-55); Mean Corpuscular Hemoglobin 32.9 pg (27-33); Mean Corpuscular Volume 97.1 fl (85-98); Mean Platelet Volume 8.8 fL (7.4-10.4); Monocytes # 0.4 10^3/uL (0.2-0.9); Monocytes % 7.6 %; Neutrophils % 55.2 %; Nucleated Red Blood Cells % 0 %; Platelet Count 231 10^3/cmm (157-399); Red Blood Count 3.77 10^6/uL (3.85-5.65); Red Cell Distribution Width 12.3 % (12.1-15.1); White Blood Count 5.25 10^3/uL (3.29-11.43)
[2024-01-07 14:30] LABS: Carcinoembryonic Antigen 2.6 ng/mL (0.0-4.7)
[2024-01-07 14:41] LABS: Alanine Aminotransferase 17 U/L (0-33); Albumin Level 3.9 g/dL (3.5-5.2); Alkaline Phosphatase 108 U/L (35-105); Aspartate Amino Transferase 18 U/L (0-32); Blood Urea Nitrogen 9 mg/dL (8-23); Calcium 8.9 mg/dL (8.5-10.5); Carbon Dioxide 23 mmol/L (22-29); Chloride 102 mmol/L (98-107); Globulin 2.9 g/dL (1.3-4.6); Glomerular Filtration Rate 99.7 mL/min (90-130); Glucose 175 mg/dL (65-115); Osmolality Calculated 289 mOsm/kg (285-295); Sodium 138 mmol/L (136-145); Total Bilirubin 0.3 mg/dL (0.15-1.2); Total Protein 6.8 g/dL (6.6-8.7)
== END 2024-01-12 23:59 | disposition home or self-care (01) ==
PROVIDERS: Nurse Practitioner Family; PCP Nurse Practitioner Family; Visit Provider Internal Medicine Medical Oncology
DX: C18.9 Malignant neoplasm of colon, unspecified; Z79.52 Long term (current) use of systemic steroids; Z79.899 Other long term (current) drug therapy; Z79.631 Long term (current) use of antimetabolite agent; Z95.828 Presence of other vascular implants and grafts; Z90.49 Acquired absence of other specified parts of digestive tract
CPT/HCPCS: 36591; 80053; 82378; 85025

== ENCOUNTER 2024-02-04 14:22 | Oncology outpatient (recurring) (ONCR) | payer MEDICARE, SELFPAY ==
[2024-02-04 14:52] LABS: Basophils % 0.5 %; Eosinophils # 0.1 10^3/uL (0.0-0.8); Eosinophils % 1.1 %; Hematocrit 38.5 % (36-47); Lymphocytes # 2.1 10^3/uL (0.8-4.8); Lymphocytes % 37.6 %; Mean Corpuscular HGB Conc 34.3 g/dL (30-55); Mean Corpuscular Hemoglobin 32.4 pg (27-33); Mean Corpuscular Volume 94.4 fl (85-98); Mean Platelet Volume 8.8 fL (7.4-10.4); Monocytes # 0.4 10^3/uL (0.2-0.9); Monocytes % 6.7 %; Neutrophils # 3.06 10^3/uL (1.8-7.7); Neutrophils % 53.9 %; Nucleated Red Blood Cells % 0 %; Platelet Count 212 10^3/cmm (157-399); Red Blood Count 4.08 10^6/uL (3.85-5.65); Red Cell Distribution Width 11.7 % (12.1-15.1); White Blood Count 5.67 10^3/uL (3.29-11.43)
[2024-02-04 15:33] LABS: Alanine Aminotransferase 17 U/L (0-33); Albumin Level 3.9 g/dL (3.5-5.2); Alkaline Phosphatase 96 U/L (35-105); Aspartate Amino Transferase 19 U/L (0-32); Blood Urea Nitrogen 9 mg/dL (8-23); Carbon Dioxide 24 mmol/L (22-29); Chloride 102 mmol/L (98-107); Globulin 2.7 g/dL (1.3-4.6); Glomerular Filtration Rate 99.7 mL/min (90-130); Glucose 121 mg/dL (65-115); Osmolality Calculated 288 mOsm/kg (285-295); Sodium 139 mmol/L (136-145); Total Bilirubin 0.4 mg/dL (0.15-1.2); Total Protein 6.6 g/dL (6.6-8.7)
[2024-02-04 15:44] LABS: Carcinoembryonic Antigen 2.4 ng/mL (0.0-4.7)
== END 2024-02-11 23:59 | disposition home or self-care (01) ==
LOC: ONCMED 14:22
PROVIDERS: PCP Nurse Practitioner Family; Visit Provider Internal Medicine Medical Oncology
DX: Z95.828 Presence of other vascular implants and grafts
CPT/HCPCS: 36591; 80053; 82378; 85025

== ENCOUNTER 2024-03-04 11:51 | Oncology outpatient (recurring) (ONCR) | payer MEDICARE, SELFPAY ==
[2024-03-04 12:36] LABS: Basophils % 0.6 %; Eosinophils # 0.1 10^3/uL (0.0-0.8); Eosinophils % 0.9 %; Hematocrit 37.7 % (36-47); Lymphocytes # 1.8 10^3/uL (0.8-4.8); Lymphocytes % 27.5 %; Mean Corpuscular HGB Conc 34.5 g/dL (30-55); Mean Corpuscular Hemoglobin 32.1 pg (27-33); Mean Corpuscular Volume 93.1 fl (85-98); Mean Platelet Volume 8.8 fL (7.4-10.4); Monocytes # 0.4 10^3/uL (0.2-0.9); Monocytes % 6.7 %; Neutrophils # 4.21 10^3/uL (1.8-7.7); Neutrophils % 64.1 %; Nucleated Red Blood Cells % 0 %; Platelet Count 203 10^3/cmm (157-399); Red Blood Count 4.05 10^6/uL (3.85-5.65); Red Cell Distribution Width 11.9 % (12.1-15.1); White Blood Count 6.57 10^3/uL (3.29-11.43)
[2024-03-04 13:04] LABS: Carcinoembryonic Antigen 2.1 ng/mL (0.0-4.7)
[2024-03-04 13:15] LABS: Alanine Aminotransferase 18 U/L (0-33); Alkaline Phosphatase 82 U/L (35-105); Anion Gap 15.9 (5-19); Aspartate Amino Transferase 18 U/L (0-32); Blood Urea Nitrogen 10 mg/dL (8-23); Calcium 8.7 mg/dL (8.5-10.5); Carbon Dioxide 23 mmol/L (22-29); Chloride 104 mmol/L (98-107); Creatinine Clr Calc Pharmacy 82.4244; Globulin 2.5 g/dL (1.3-4.6); Glomerular Filtration Rate 99.7 mL/min (90-130); Glucose 155 mg/dL (65-115); Osmolality Calculated 290 mOsm/kg (285-295); Potassium 3.9 mmol/L (3.5-5.1); Sodium 139 mmol/L (136-145); Total Bilirubin 0.5 mg/dL (0.15-1.2); Total Protein 6.5 g/dL (6.6-8.7)
== END 2024-03-13 23:59 | disposition home or self-care (01) ==
PROVIDERS: Nurse Practitioner Family; PCP Nurse Practitioner Family; Visit Provider Internal Medicine Medical Oncology
DX: C18.9 Malignant neoplasm of colon, unspecified (principal); G62.9 Polyneuropathy, unspecified; Z79.52 Long term (current) use of systemic steroids; Z79.899 Other long term (current) drug therapy; Z79.631 Long term (current) use of antimetabolite agent; Z95.828 Presence of other vascular implants and grafts; Z90.49 Acquired absence of other specified parts of digestive tract
CPT/HCPCS: 36591; 80053; 82378; 85025; 99214

== ENCOUNTER 2024-04-01 13:58 | Oncology outpatient (recurring) (ONCR) | payer MEDICARE, SELFPAY | END 2024-04-12 23:59 | disposition home or self-care (01) | LOC: ONCMED 13:59 | PROVIDERS: PCP Nurse Practitioner Family; Visit Provider Internal Medicine Medical Oncology | DX: Z45.2 Encounter for adjustment and management of vascular access device | CPT/HCPCS: 96523 ==

== ENCOUNTER 2024-04-29 14:06 | Oncology outpatient (recurring) (ONCR) | payer MEDICARE, SELFPAY | END 2024-05-13 23:59 | disposition home or self-care (01) | LOC: ONCMED 14:06 | PROVIDERS: PCP Nurse Practitioner Family; Visit Provider Internal Medicine Medical Oncology | DX: Z45.2 Encounter for adjustment and management of vascular access device (principal) | CPT/HCPCS: 96523 ==

== ENCOUNTER 2024-05-15 13:47 | Outpatient (CLI) | payer MEDICARE, SELFPAY ==
--- NOTE | 2024-05-15 13:55 | XR_ITS ---
WS: [id number] DEXA (DUAL ENERGY X-RAY ABSORPTIOMETRY) Bone mineral density was performed using a [employer] machine. HISTORY: POSTMENOPAUSAL COMPARISON: None available. Lumbar spine BMD (L1-L4): 1.226 g/cm2 T score: 0.4 Z score: 0.8 Total hip BMD: Left: 0.932 g/cm2. T score: -0.6 Z score: -0.1 Right: 0.938 g/cm2. T score: -0.6 Z score: -0.1 10 year probability of a major osteoporotic fracture is 8.1%. XR/XR DEXA axial skeleton* [id number] IMPRESSION: NORMAL BONE MINERAL DENSITY based upon the WHO classification for females.
== END 2024-05-15 13:48 | disposition home or self-care (01) ==
LOC: RAD 13:50
PROVIDERS: PCP Nurse Practitioner Family; Visit Provider Nurse Practitioner Family
DX: Z78.0 Asymptomatic menopausal state (principal)
CPT/HCPCS: 77080

== ENCOUNTER 2024-05-20 12:07 | Outpatient (CLI) | payer MEDICARE, SELFPAY ==
--- NOTE | 2024-05-20 12:16 | CTR_ITS ---
PROCEDURE INFORMATION: Exam: CT Chest With Contrast; Diagnostic Exam date and time: 05/20/2024 1:04 PM Age: 68 years old Clinical indication: Condition or disease; Other: Malignant neoplasm of colon; Prior surgery; Surgery date: 6+ months; Surgery type: Port, gb, hyst, colon TECHNIQUE: Imaging protocol: Diagnostic computed tomography of the chest with contrast. Radiation optimization: All CT scans at this facility use at least one of these dose optimization techniques: automated exposure control; mA and/or kV adjustment per patient size (includes targeted exams where dose is matched to clinical indication); or iterative reconstruction. Contrast material: OMNI 350; Contrast volume: 100 ml; Contrast route: INTRAVENOUS (IV); COMPARISON: CT chest w con* [id number] 06/27/2023 9:27 AM RADIATION DOSE METRICS: Total DLP (mGy-cm): 1388.91 FINDINGS: Tubes, catheters and devices: Left infusion port catheter with tip in the SVC. Thyroid: Stable bilateral thyroid nodules, the largest on the right measuring 1.6 cm. Consider follow-up ultrasound if not already performed. Trachea: Airways are patent. Lungs: Stable 6 mm lobulated nodule in the right lower lobe (series 3, image 28). This is unlikely related to metastatic disease considering stability. No other discrete pulmonary nodules appreciated. No consolidations. Pleural spaces: No pleural effusions or pneumothorax. Heart: Calcifications of the aortic valve annulus. No cardiomegaly. No pericardial thickening or effusion. Coronary arteries: There is no evidence of atherosclerotic coronary artery calcifications. Lymph nodes: There is no evidence of lymphadenopathy. Vasculature: Bovine aortic arch, with a common origin of the left common carotid and brachiocephalic arteries. Aorta is normal in course and caliber. No aortic aneurysms. Mild diffuse calcific atherosclerosis of the aorta. Diaphragm: Small hiatal hernia. Bones/joints: Moderate multilevel degenerative changes of the spine. No acute skeletal abnormality or aggressive osseous lesion. Soft tissues: Unremarkable. Other findings: Benign right hilar calcified granulomas. PROCEDURE INFORMATION: Exam: CT Abdomen And Pelvis With Contrast Exam date and time: 05/20/2024 1:04 PM Age: 68 years old Clinical indication: Condition or disease; Other: Malignant neoplasm of colon; Prior surgery; Surgery date: 6+ months; Surgery type: Port, gb, hyst, colon TECHNIQUE: Imaging protocol: Computed tomography of the abdomen and pelvis with contrast. Radiation optimization: All CT scans at this facility use at least one of these dose optimization techniques: automated exposure control; mA and/or kV adjustment per patient size (includes targeted exams where dose is matched to clinical indication); or iterative reconstruction. Contrast material: OMNI 350; Contrast volume: 100 ml; Contrast route: INTRAVENOUS (IV); COMPARISON: CT abdomen pelvis w con* [id number] 08/02/2023 2:25 AM RADIATION DOSE METRICS: Total DLP (mGy-cm): 1388.91 FINDINGS: Liver: Liver is enlarged measuring 18 cm. Diffuse decrease in hepatic parenchymal density, consistent with fatty infiltration. The liver is otherwise unremarkable. Gallbladder and biliary ducts: Cholecystectomy. There is no evidence of biliary ductal dilation. Pancreas: Benign fatty infiltration of the pancreas. The pancreas is otherwise unremarkable. Spleen: The spleen demonstrates punctate calcifications, consistent with remote granulomatous organism exposure. The spleen is otherwise unremarkable. Adrenal glands: Adrenal glands are normal. Kidneys and ureters: Stable symmetric mild bilateral hydroureteronephrosis without inflammatory changes to the kidneys or ureters and without radiopaque obstructive calculi. Single subcentimeter right kidney hypodense lesion which is too small to characterize. Consider follow-up ultrasound. Stomach and bowel: Diffuse colonic diverticulosis. Moderate constipation. Right hemicolectomy without complications. No bowel thickening. There is no evidence of intestinal obstruction. Appendix: Appendectomy. Intraperitoneal space: There is no evidence of free intraperitoneal or pelvic fluid. No intraperitoneal fluid collections. 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 Mild atherosclerotic calcification of the arterial vasculature. No aortic aneurysm. Portal venous system is patent. Lymph nodes: There is no evidence of lymphadenopathy. Urinary bladder: Bladder is decompressed and difficult to evaluate. Reproductive: There has been a hysterectomy. Bones/joints: Bone demineralization. Mild multilevel degenerative changes of the spine. No acute skeletal abnormality or aggressive osseous lesion. Soft tissues: No acute soft tissue findings. CT/CT chest abdpel w/*[id number] IMPRESSION: 1. No acute thoracic pathology. 2. No evidence of metastatic disease in the chest. IMPRESSION: 1. Stable symmetric mild bilateral hydroureteronephrosis without inflammatory changes to the kidneys or ureters and without radiopaque obstructive calculi. This is chronic, however the etiology is uncertain. 2. No evidence of disease recurrence or metastasis in the abdomen or pelvis. COMMENTS: Consistent with the [place]'s Incidental Findings Committee white paper (J Am Nida Radiol 2018): Any incidental renal lesion less than 1 cm or classified as too small to characterize, or any incidental cystic renal lesion characterized as simple-appearing, is likely benign. No follow-up imaging is recommended for these lesions per consensus recommendations based on imaging criteria.
[2024-05-20 13:03] LABS: Blood Urea Nitrogen 10 mg/dL (8-23); Glomerular Filtration Rate 99.7 mL/min (90-130)
[2024-05-20] MEDS: iohexol 350 mg/mL 500 mL Btl (per mL) PO (13:05)
[2024-05-20] MEDS: iohexol 350 mg/mL 500 mL Btl (per mL) IV (13:11)
== END 2024-05-20 12:08 | disposition home or self-care (01) ==
LOC: RAD 12:07
PROVIDERS: PCP Nurse Practitioner Family; Visit Provider Nurse Practitioner Family
DX: C18.9 Malignant neoplasm of colon, unspecified (principal); E04.2 Nontoxic multinodular goiter; R91.1 Solitary pulmonary nodule; I70.0 Atherosclerosis of aorta; Q25.49 Other congenital malformations of aorta; K44.9 Diaphragmatic hernia without obstruction or gangrene; R16.0 Hepatomegaly, not elsewhere classified; Z90.49 Acquired absence of other specified parts of digestive tract; K90.3 Pancreatic steatorrhea; D73.89 Other diseases of spleen; R93.421 Abnormal radiologic findings on diagnostic imaging of right kidney; I72.8 Aneurysm of other specified arteries; Z90.710 Acquired absence of both cervix and uterus
CPT/HCPCS: 71260; 74177; 82565; 84520

== ENCOUNTER → 2024-05-26 11:26 | Outpatient (BNVA) | payer MEDICARE, SELFPAY | PROVIDERS: PCP Nurse Practitioner Family; Visit Provider Surgery | DX: R03.0 Elevated blood-pressure reading, without diagnosis of hypertension; C18.9 Malignant neoplasm of colon, unspecified; R19.8 Other specified symptoms and signs involving the digestive system and abdomen; Z85.038 Personal history of other malignant neoplasm of large intestine | CPT/HCPCS: 99214 ==

== ENCOUNTER 2024-05-27 14:00 | Oncology outpatient (recurring) (ONCR) | payer MEDICARE, SELFPAY ==
[2024-05-27 14:02] LABS: Basophils # 0.1 10^3/uL (0.0-0.1); Basophils % 0.7 %; Eosinophils # 0.1 10^3/uL (0.0-0.8); Eosinophils % 1.9 %; Hematocrit 38.5 % (36-47); Lymphocytes % 27.9 %; Mean Corpuscular Hemoglobin 30.9 pg (27-33); Mean Corpuscular Volume 90.8 fl (85-98); Mean Platelet Volume 8.6 fL (7.4-10.4); Monocytes # 0.5 10^3/uL (0.2-0.9); Monocytes % 7.1 %; Neutrophils # 4.54 10^3/uL (1.8-7.7); Neutrophils % 62.1 %; Nucleated Red Blood Cells % 0 %; Platelet Count 260 10^3/cmm (157-399); Red Blood Count 4.24 10^6/uL (3.85-5.65); Red Cell Distribution Width 12.5 % (12.1-15.1); White Blood Count 7.31 10^3/uL (3.29-11.43)
[2024-05-27 14:34] LABS: Carcinoembryonic Antigen 1.7 ng/mL (0.0-4.7)
[2024-05-27 14:45] LABS: Alanine Aminotransferase 16 U/L (0-33); Albumin Level 4.1 g/dL (3.5-5.2); Alkaline Phosphatase 84 U/L (35-105); Anion Gap 16.2 (5-19); Aspartate Amino Transferase 15 U/L (0-32); Blood Urea Nitrogen 13 mg/dL (8-23); Calcium 9.3 mg/dL (8.5-10.5); Carbon Dioxide 23 mmol/L (22-29); Chloride 100 mmol/L (98-107); Globulin 2.5 g/dL (1.3-4.6); Glomerular Filtration Rate 123.1 mL/min (90-130); Glucose 132 mg/dL (65-115); Osmolality Calculated 282 mOsm/kg (285-295); Potassium 4.2 mmol/L (3.5-5.1); Sodium 135 mmol/L (136-145); Total Bilirubin 0.3 mg/dL (0.15-1.2); Total Protein 6.6 g/dL (6.6-8.7)
== END 2024-06-13 23:59 | disposition home or self-care (01) ==
PROVIDERS: Nurse Practitioner Family; PCP Nurse Practitioner Family; Visit Provider Internal Medicine Medical Oncology
DX: C18.9 Malignant neoplasm of colon, unspecified (principal); Z53.9 Procedure and treatment not carried out, unspecified reason; G62.9 Polyneuropathy, unspecified
CPT/HCPCS: 36591; 80053; 82378; 85025; 99214

== ENCOUNTER 2024-05-28 12:32 | Emergency (ER) | payer MEDICARE, SELFPAY ==
[2024-05-28] VITALS (7 sets, daily range): BP systolic 146–175; BP diastolic 82–100; PULSE 77–85; RESP 16; TEMP 36.7; O2SAT 95–98; BMI 35.6
[2024-05-28 13:20] LABS: Basophils # 0.1 10^3/uL (0.0-0.1); Basophils % 0.6 %; Eosinophils # 0.1 10^3/uL (0.0-0.8); Eosinophils % 1.3 %; Hematocrit 42.2 % (36-47); Lymphocytes # 1.3 10^3/uL (0.8-4.8); Lymphocytes % 14.7 %; Mean Corpuscular HGB Conc 34.1 g/dL (30-55); Mean Corpuscular Hemoglobin 31.3 pg (27-33); Mean Corpuscular Volume 91.7 fl (85-98); Mean Platelet Volume 8.5 fL (7.4-10.4); Monocytes # 0.5 10^3/uL (0.2-0.9); Monocytes % 5.6 %; Neutrophils % 77.6 %; Nucleated Red Blood Cells % 0 %; Platelet Count 269 10^3/cmm (157-399); Red Cell Distribution Width 12.5 % (12.1-15.1); White Blood Count 8.51 10^3/uL (3.29-11.43)
[2024-05-28 13:38] LABS: Alanine Aminotransferase 32 U/L (0-33); Alkaline Phosphatase 92 U/L (35-105); Anion Gap 17.9 (5-19); Aspartate Amino Transferase 33 U/L (0-32); Blood Urea Nitrogen 14 mg/dL (8-23); Calcium 9.2 mg/dL (8.5-10.5); Carbon Dioxide 22 mmol/L (22-29); Chloride 100 mmol/L (98-107); Globulin 3.2 g/dL (1.3-4.6); Glomerular Filtration Rate 123.1 mL/min (90-130); Glucose 214 mg/dL (65-115); Lipase 29 U/L (13-60); Osmolality Calculated 289 mOsm/kg (285-295); Potassium 3.9 mmol/L (3.5-5.1); Sodium 136 mmol/L (136-145); Total Bilirubin 0.8 mg/dL (0.15-1.2); Total Protein 7.2 g/dL (6.6-8.7)
--- NOTE | 2024-05-28 14:53 | CTR_ITS ---
PROCEDURE INFORMATION: Exam: CT Abdomen And Pelvis Without Contrast Exam date and time: 05/28/2024 3:01 PM Age: 68 years old Clinical indication: Abdominal pain; Flank; Right; Prior surgery; Surgery date: 6+ months; Surgery type: Gb, hysterectomy, colon TECHNIQUE: Imaging protocol: Computed tomography of the abdomen and pelvis without contrast. Radiation optimization: All CT scans at this facility use at least one of these dose optimization techniques: automated exposure control; mA and/or kV adjustment per patient size (includes targeted exams where dose is matched to clinical indication); or iterative reconstruction. COMPARISON: CT chest abdpel w/*[id number] 05/20/2024 1:04 PM RADIATION DOSE METRICS: Total DLP (mGy-cm): 979.16 FINDINGS: Lungs: Subsegmental bibasilar atelectasis. The visualized lung bases are otherwise clear. Diaphragm: No evidence of diaphragmatic defect. Liver: No evidence of focal hepatic lesion within limitation of a noncontrast exam. Gallbladder and biliary ducts: Status post cholecystectomy. No evidence of intrahepatic or extrahepatic biliary dilatation. Pancreas: Grossly unremarkable. Spleen: Grossly unremarkable. Adrenal glands: Grossly unremarkable. Kidneys and ureters: No gross renal parenchymal abnormality. No evidence of hydronephrosis or ureteral stone. Stomach and bowel: Postsurgical changes of the right hemicolon. There are loops of thickened small bowel with perienteric inflammatory changes in the right hemiabdomen. Few loops of mildly dilated small bowel measuring up to 3 cm with air-fluid levels are also noted in the left hemiabdomen raising the question of low-grade partial small bowel obstruction. No evidence of high-grade bowel obstruction. Appendix: Surgically absent. Intraperitoneal space: No evidence of free air or fluid collection. Vasculature: No evidence of aneurysmal dilitation of abdominal aorta. Lymph nodes: No evidence of adenopathy. Urinary bladder: Grossly unremarkable. Reproductive: Prior hysterectomy. Bones/joints: No evidence of acute fracture or aggresive osseous lesion. Soft tissues: No evidence of fluid collection or hematoma in the superficial soft tissues. CT/CT abdomen pelvis con [id number] IMPRESSION: 1. Findings compatible with a nonspecific infectious or inflammatory enteritis. Low-grade partial small bowel obstruction would be difficult to exclude in the proper clinical setting. No evidence of high-grade obstruction.
--- NOTE | 2024-05-28 14:53 | ED_ITS ---
HPI - Abdominal Pain 2 General: Chief Complaint: Abdominal Pain Stated Complaint: pain on right side abdominal Time Seen by Provider: 05/28/24 14:41 History of Present Illness: 68-year-old female presents to the [facility] ency room with right-sided abdominal pain for about the last 12 hours. No nausea or vomiting. No hematemesis or coffee-ground emesis. Previously patient had a complication of a colonoscopy with a perforation in an area that turned out to have a cancer she had a recall resection of her colon with a primary anastomosis underwent treatment for the cancer and has not had any problems. She denies any medication [place] hematemesis cough (dysuria urgency or frequency or flank pain Associated Symptoms: Denies chills, dysuria and fever(s) Related Data Home Medications Medication Instructions Recorded Confirmed losartan 50 mg tablet 50 mg PO DAILY 06/25/23 05/28/24 amlodipine 10 mg tablet 10 mg PO DAILY 05/28/24 05/28/24 carvedilol 12.5 mg tablet 12.5 mg PO DAILY 05/28/24 05/28/24 hydrocodone 5 mg-acetaminophen 325 1 tab PO Q8H PRN Pain 05/28/24 05/28/24 mg tablet Previous Rx's Medication Instructions Recorded metformin 1,000 mg tablet 1,000 mg PO BID #180 tabs 03/08/23 AFO to right #1 ea 03/13/23 Diabetic Shoes with 3 sets of #1 ea 08/07/23 insoles gabapentin 100 mg capsule 100 mg PO TID #90 caps 03/04/24 promethazine 25 mg tablet 25 mg PO Q6H PRN nausea and 05/28/24 vomiting #20 tabs Allergies Allergy/AdvReac Type Severity Reaction Status Date / Time [id number]-[id number]-TtC Reductase Allergy Unknown Verified 05/26/24 11:33 Inhibitor Review of Systems 2 Const: Denies: fever(s) or chills Card: Denies: chest pain Resp: Denies: dyspnea GI: Reports: abdominal pain : Denies: dysuria, urinary frequency or urinary urgency Musc: Denies: neck pain or back pain Skin/Breast: Denies: rash PFSH ED 2 PFSH: Medical History Port-A-Cath in place Diabetes Adenocarcinoma of colon Hypertension Well adult exam Screening for breast cancer Surgical History Hx of right hemicolectomy 05/20/23 Iatrogenic colon perforation at the hepatic flexure Procedure done: Exploratory laparotomy Extensive lysis of adhesions Right hemicolectomy History of colonoscopy Screening colonoscopy Social History Smoking and tobacco/nicotine status: never used tobacco/nicotine Physical Exam 2 Const: GENERAL APPEARANCE: cooperative ORIENTATION/CONSCIOUSNESS: Yes awake, Yes oriented to person, Yes oriented to place and Yes oriented to time HENMT: COMMON NORMALS: normocephalic, atraumatic and hearing grossly normal bilaterally HEAD & SCALP: normocephalic and atraumatic Resp: COMMON NORMALS: normal respiratory effort, No retractions, No use of accessory muscles and clear to auscultation bilaterally AUSCULTATION: clear to auscultation bilaterally Cardio: COMMON NORMALS: regular rate, regular rhythm and No murmurs present (Cardio) RATE: regular rate RHYTHM: regular rhythm GI: COMMON NORMALS: No hepatosplenomegaly present AUSCULTATION: Yes normoactive bowel sounds PALPATION: Yes Tenderness to palpation present (GI) Details: RLQ, No Guarding due to palpation present (GI) and Yes No hepatosplenomegaly present Extremity: COMMON NORMALS: normal to inspection, capillary refill normal, no clubbing, cyanosis or edema, no calf tenderness and no pedal edema Neuro: SENSORIUM/ORIENTATION: Yes oriented to person, Yes oriented to place and Yes oriented to time Skin: COMMON NORMALS: no rashes or lesions noted GENERAL SKIN EXAM: no rashes or lesions noted Course 2 Vital Signs: Vital signs: Vital Signs Temperature 98.0 F 05/28/24 12:54 Pulse Rate 83 05/28/24 17:39 Respiratory Rate 16 05/28/24 12:54 Blood Pressure 168/94 05/28/24 17:39 Pulse Oximetry 97 05/28/24 17:39 Oxygen Delivery Me thod Room Air 05/28/24 12:54 MDM - Abdominal Pain Medical Decision Making CT shows low-grade enteritis. As mentioned CT possible bowel obstruction clinically there is no evidence of bowel obstruction not a significant mount distention there is no tympany bowel sounds are highly active. Patient does have a cystitis will discharge patient home on cefdinir. Laboratory tests otherwise do not show significant abnormality. Chart reviewed and completed after patient was seen. Because of a known problem with the EMR the medications fell off of the list. They can be seen in the discharge sequence that the patient signed but they are no longer attached to the record. Medical Records I reviewed the patient's medical records. Lab Data I reviewed the patient's lab results. 05/28/24 13:10 05/28/24 13:10 Labs/Radiology: Radiology Impressions Abdomen/Pelvis CT 05/28/24 14:53 IMPRESSION: 1. Findings compatible with a nonspecific infectious or inflammatory enteritis. Low-grade partial small bowel obstruction would be difficult to exclude in the proper clinical setting. No evidence of high-grade obstruction. Laboratory Results WBC 8.51 10^3/uL (3.29-11.43) 05/28/24 13:10 RBC 4.60 10^6/uL (3.85-5.65) 05/28/24 13:10 Hgb 14.40 g/dL (11.27-16.99) 05/28/24 13:10 Hct 42.2 % (36-47) 05/28/24 13:10 MCV 91.7 fl (85-98) 05/28/24 13:10 MCH 31.3 pg (27-33) 05/28/24 13:10 MCHC 34.1 g/dL (30-55) 05/28/24 13:10 RDW 12.5 % (12.1-15.1) 05/28/24 13:10 Plt Count 269 10^3/cmm (157-399) 05/28/24 13:10 MPV 8.5 fL (7.4-10.4) 05/28/24 13:10 Neut % (Auto) 77.6 % 05/28/24 13:10 Lymph % (Auto) 14.7 % 05/28/24 13:10 [place] % (Auto) 5.6 % 05/28/24 13:10 Eos % (Auto) 1.3 % 05/28/24 13:10 Baso % (Auto) 0.6 % 05/28/24 13:10 Neut # (Auto) 6.60 10^3/uL (1.8-7.7) 05/28/24 13:10 Lymph # (Auto) 1.3 10^3/uL (0.8-4.8) 05/28/24 13:10 [place] # (Auto) 0.5 10^3/uL (0.2-0.9) 05/28/24 13:10 Eos # (Auto) 0.1 10^3/uL (0.0-0.8) 05/28/24 13:10 Baso # (Auto) 0.1 10^3/uL (0.0-0.1) 05/28/24 13:10 Nucleated RBC % (auto) 0 % 05/28/24 13:10 Nucleated RBCs # 0.0 /100WBC 05/28/24 13:10 Sodium 136 mmol/L (136-145) 05/28/24 13:10 Potassium 3.9 mmol/L (3.5-5.1) 05/28/24 13:10 Chloride 100 mmol/L (98-107) 05/28/24 13:10 Carbon Dioxide 22 mmol/L (22-29) 05/28/24 13:10 Anion Gap 17.9 (5-19) 05/28/24 13:10 BUN 14 mg/dL (8-23) 05/28/24 13:10 Creatinine 0.5 mg/dL (0.5-0.9) 05/28/24 13:10 GFR Calculation 123.1 mL/min (90-130) 05/28/24 13:10 Glucose 214 mg/dL (65-115) H 05/28/24 13:10 Calculated Osmolality 289 mOsm/kg (285-295) 05/28/24 13:10 Calcium 9.2 mg/dL (8.5-10.5) 05/28/24 13:10 Total Bilirubin 0.8 mg/dL (0.15-1.2) 05/28/24 13:10 AST 33 U/L (0-32) H 05/28/24 13:10 ALT 32 U/L (0-33) 05/28/24 13:10 Alkaline Phosphatase 92 U/L (35-105) 05/28/24 13:10 Total Protein 7.2 g/dL (6.6-8.7) 05/28/24 13:10 Albumin 4.0 g/dL (3.5-5.2) 05/28/24 13:10 Globulin 3.2 g/dL (1.3-4.6) 05/28/24 13:10 Lipase 29 U/L (13-60) 05/28/24 13:10 Urine Color Yellow (Yellow) 05/28/24 14:57 Urine Appearance Clear (CLEAR) 05/28/24 14:57 Urine pH 5.0 (5-7) 05/28/24 14:57 Ur Specific [place] 1.023 (1.005-1.030) 05/28/24 14:57 Urine Protein Trace (Negative) A 05/28/24 14:57 Urine Glucose (UA) Negative (Normal) 05/28/24 14:57 Urine Ketones Trace (Negative) 05/28/24 14:57 Urine Blood Negative (Negative) 05/28/24 14:57 Urine Nitrate Negative (Negative) 05/28/24 14:57 Urine Bilirubin Negative (Negative) 05/28/24 14:57 Urine Urobilinogen 1.0 mg/dL (Negative) 05/28/24 14:57 Ur Leukocyte Esterase 1+ (Negative) A 05/28/24 14:57 Urine RBC 0-2 /hpf (0-2) 05/28/24 14:57 Urine WBC 11-20 /hpf (0-5) H 05/28/24 14:57 Ur Squamous Epith Cells 0-5 /hpf (0-5) 05/28/24 14:57 Amorphous Sediment Not Reportable 05/28/24 14:57 Urine Bacteria 4+ /hpf (NONE) H 05/28/24 14:57 Hyaline Casts 10.73 /lpf 05/28/24 14:57 Coarse Granular Casts 0-4 /lpf H 05/28/24 14:57 Urine Mucus 1+ /hpf 05/28/24 14:57 All radiology interpretation(s) finalized by discharge Discharge Plan Discharge Patient Disposition: Home Clinical Impression: Gastroenteritis, UTI (urinary tract infection), History of colon cancer Condition: Stable Prescriptions: New promethazine 25 mg tablet 25 mg PO Q6H PRN (Reason: nausea and vomiting) Qty: 20 0RF No Action (DME) AFO to right See Rx Instructions .Route .MEDSUPPLY Qty: 1 0RF Rx Instructions: As directed by [facility] gabapentin 100 mg capsule 100 mg PO TID Qty: 90 3RF (DME) Diabetic Shoes with 3 sets of insoles See Rx Instructions .Route .MEDSUPPLY Qty: 1 0RF Rx Instructions: As directed by [facility] metformin 1,000 mg tablet 1,000 mg PO BID Qty: 180 3RF Hold Instructions: Resume on 05/30/23. losartan 50 mg tablet 50 mg PO DAILY carvedilol 12.5 mg tablet 12.5 mg PO DAILY hydrocodone-acetaminophen 5-325 mg tablet 1 tab PO Q8H PRN (Reason: Pain) amlodipine 10 mg tablet 10 mg PO DAILY Discharge Orders: Discharge ED (Routine); Ordered 05/28/24 Ordered By: Bijan Vega Referrals: eDbbie Vo FNP [Primary Care Provider] - Discharge Diet: Clear Liquid Discharge Activity: Increase activity as tolerated Patient Instructions: Opioid Safety, Pain Management Activity Restrictions/Additional Instructions: Thank you for choosing [facility] for your healthcare needs today. It is very important that you follow up as instructed or that you return to the Emergency Department should you have concerns or if your condition changes or worsens in any way. You were seen in the emergency room with complaints of abdominal pain your white count is normal CT did not show any signs of acute appendicitis. You do appear to have a mild gastroenteritis. Recommend clear liquid diet and advance as tolerated. You can use promethazine as needed for nausea vomiting. Additionally we will start you on an oral antibiotic for the cystitis. 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
[2024-05-28 15:32] LABS: Bilirubin Urine Negative (Negative); Blood Urine Negative (Negative); Glucose Urine UA Negative (Normal); Ketones Urine Trace (Negative); Leukocyte Esterase Urine 1+ (Negative); Nitrate Urine Negative (Negative); Protein Urine Trace (Negative); Specific Gravity, Urine 1.023 (1.005-1.030); Urine Appearance Clear (CLEAR); Urine Color Yellow (Yellow)
[2024-05-28 15:40] LABS: Add Urine Microscopic? YES; Bacteria Urine 4+ /hpf; Hyaline Casts Urine 10.73 /lpf; RBC Urine 0-2 /hpf (0-2); Squamous Epithelial Cell Urine 0-5 /hpf (0-5)
[2024-05-28 16:06] LABS: UA Slide Review UA Slide Review Perf
[2024-05-28 16:07] LABS: Add Urine Culture? Yes; Coarse Granular Casts Urine 0-4 /lpf; Mucus Urine 1+ /hpf
[2024-05-28] MEDS: hyDRALAzine 10 mg Tablet PO (17:15)
== END 2024-05-28 17:40 | disposition home or self-care (01) ==
PROVIDERS: Emergency Medicine; Emergency Provider Family Medicine; PCP Nurse Practitioner Family
DX: K52.9 Noninfective gastroenteritis and colitis, unspecified (principal); N39.0 Urinary tract infection, site not specified; Z85.038 Personal history of other malignant neoplasm of large intestine; E11.9 Type 2 diabetes mellitus without complications
CPT/HCPCS: 36415; 74176; 80053; 81001; 83690; 85025; 87077; 87086; 87186; 99284

== ENCOUNTER 2024-06-11 08:38 | Day surgery (SDC) | payer MEDICARE, SELFPAY ==
[2024-06-11 08:55] VITALS: BP 156/114; PULSE 81; RESP 16; TEMP 36.4; O2SAT 97
[2024-06-11] MEDS: sodium chloride 0.9% 500 ML 15 ML IV (09:03)
[2024-06-11 09:08] LABS: Glucose Point of Care 177 mg/dL (70-110)
--- NOTE | 2024-06-11 09:34 | ANES.PREANE2 ---
Pre-Anesthetic Assessment Height/Weight: Height 1.7 m Weight 103.419 kg Temp Pulse Resp BP Pulse Ox O2 Del Method 97.6 F 81 16 156/114 97 Room Air 06/11/24 08:55 06/11/24 08:55 06/11/24 08:55 06/11/24 08:55 06/11/24 08:55 06/11/24 08:55 Preop Diagnosis: screening Operation Date: 06/11/24 10:00 Proposed Procedures p Colonoscopy 87017, G0105, Z12.11(Not Applicable) - Ran Willams DO Familial anesthetic complications: none Was Beta Delphine taken within 24 hours: Yes Last intake: Intake Last Liquid Date 06/10/24 Last Liquid Time 23:00 Last Solid Date 06/09/24 Last Solid Time 17:30 Social No alcohol and No tobacco Exam alert, oriented x 3, clear to auscultation bilaterally and regular rate & rhythm Airway Submandibular: within normal limits Cervical ROM: within normal limits Mallampati: Class II Dentition: full Pulmonary None reported CV/HEM Hypertension echo 05/2023 Technically very limited quality echocardiogram because of poor ultrasonic windows. LV systolic function is normal with EF of 60 to 65%. Valvular structures are not visualized. No comparison studies are available. None reported chemistry WNL Hepatic None reported GI previous hemicolctomy, port in place adenocarcinoma of colon, in remission chemo finished 10/2023 Metabolic Diabetes Mellitus, Hyperlipidemia and Morbid Obesity [facility] None reported Neuropsych Neuropathy (BLE) and None reported Anesthetic Plan ASA status: 3 Anesthesia: MAC Medications/Allergies Home Medications Medication Instructions Recorded Confirmed Last Taken Type metformin 1,000 mg tablet 1,000 mg PO BID #180 tabs 03/08/23 06/09/24 06/10/24 Rx AFO to right #1 ea 03/13/23 05/28/24 06/10/24 Rx losartan 50 mg tablet 50 mg PO DAILY 06/25/23 06/09/24 06/10/24 History Diabetic Shoes with 3 sets of #1 ea 08/07/23 05/28/24 06/10/24 Rx insoles gabapentin 100 mg capsule 100 mg PO TID #90 caps 03/04/24 06/09/24 06/10/24 Rx amlodipine 10 mg tablet 10 mg PO DAILY 05/28/24 06/09/24 06/10/24 History carvedilol 12.5 mg tablet 12.5 mg PO BEDTIME 05/28/24 06/10/24 06/10/24 History hydrocodone 5 mg-acetaminophen 325 1 tab PO Q8H PRN Pain 05/28/24 06/09/24 06/10/24 History mg tablet promethazine 25 mg tablet 25 mg PO Q6H PRN nausea and 05/28/24 06/09/24 06/10/24 Rx vomiting #20 tabs Allergies Allergy/AdvReac Type Severity Reaction Status Date / Time Zdillnm-ARN-PtY Reductase Allergy Unknown Verified 06/09/24 09:43 Inhibitor Current Medications Generic Name Dose Route Start Last Admin Trade Name Freq PRN Reason Stop Dose Admin Sodium Chloride 500 mls @ 15 mls/hr 06/11/24 08:48 06/11/24 09:03 Sodium Chloride 0.9% IV 06/12/24 08:47 15 mls/hr .Q24H PRN Administration COLONOSCOPY FLUIDS PFSH Anesthesia Medical History Port-A-Cath in place Diabetes Adenocarcinoma of colon Hypertension Well adult exam Screening for breast cancer Surgical History Hx of right hemicolectomy 05/20/23 Iatrogenic colon perforation at the hepatic flexure Procedure done: Exploratory laparotomy Extensive lysis of adhesions Right hemicolectomy History of colonoscopy Screening colonoscopy Social History Smoking and tobacco/nicotine status: never used tobacco/nicotine Data Anesthesia Cardiac Studies: Echocardiogram 05/20/23
--- NOTE | 2024-06-11 09:56 | W.PM.OPSUD ---
Surgery/Procedure H&P Update DATE OF PROCEDURE: June 11, 2024 DATE H&P PERFORMED: 05/26/24 H&P UPDATE INFORMATION: I have reviewed H&P completed within last 30 days, I have examined patient prior to procedure and No changes to prior documentation PLANNED PROCEDURE: Operation Date: 06/11/24 10:00 Proposed Procedures p Colonoscopy 09763, G0105, Z12.11(Not Applicable) - Ran Willams, DO
[2024-06-11 10:38] VITALS: BP 96/61; PULSE 73; RESP 18; TEMP 36.2; O2SAT 97
[2024-06-11 10:50] VITALS: BP 111/69; PULSE 70; RESP 16; O2SAT 97
--- NOTE | 2024-06-11 11:10 | ANE.PACU2 ---
Inpatient post-anesthesia follow up: Airway intact: Yes Vital signs: Temperature 97.1 F Pulse Rate 70 Respiratory Rate 16 Blood Pressure 111/69 Pulse Oximetry 97 Oxygen Delivery Me thod Room Air Oxygen Flow Rate Fraction of Inspir ed Oxygen Hydration adequate: Yes Nausea and vomiting: No Pain level: 1 Mental status: Baseline
== END 2024-06-11 11:06 | disposition home or self-care (01) ==
PROVIDERS: PCP Nurse Practitioner Family; Visit Provider Surgery
PROC: 0DJD8ZZ Inspection of Lower Intestinal Tract, Via Natural or Artificial Opening Endoscopic (ICD-10-PCS; CPT 45378; principal; 2024-06-11 10:00)
DX: Z12.11 Encounter for screening for malignant neoplasm of colon (principal); K63.5 Polyp of colon; I10 Essential (primary) hypertension; Z90.49 Acquired absence of other specified parts of digestive tract; Z85.038 Personal history of other malignant neoplasm of large intestine; E78.5 Hyperlipidemia, unspecified; E66.01 Morbid (severe) obesity due to excess calories; Z68.35 Body mass index [BMI] 35.0-35.9, adult; E11.40 Type 2 diabetes mellitus with diabetic neuropathy, unspecified; Z79.84 Long term (current) use of oral hypoglycemic drugs; Z79.899 Other long term (current) drug therapy
CPT/HCPCS: 36416; 45385; 82962; 88305; J2704; J7040

== ENCOUNTER → 2024-06-26 08:18 | Outpatient (BNVA) | payer MEDICARE, SELFPAY | PROVIDERS: PCP Nurse Practitioner Family; Visit Provider Surgery | DX: Z09 Encounter for follow-up examination after completed treatment for conditions other than malignant neoplasm (principal); Z90.49 Acquired absence of other specified parts of digestive tract; Z95.828 Presence of other vascular implants and grafts | CPT/HCPCS: 99214 ==

== ENCOUNTER 2024-07-22 13:21 | Oncology outpatient (recurring) (ONCR) | payer MEDICARE, SELFPAY | END 2024-08-11 23:59 | disposition home or self-care (01) | LOC: ONCMED 13:21 | PROVIDERS: PCP Nurse Practitioner Family; Visit Provider Internal Medicine Medical Oncology | DX: Z45.2 Encounter for adjustment and management of vascular access device (principal) | CPT/HCPCS: 96523 ==

== ENCOUNTER → 2024-08-05 10:53 | Outpatient (BNVA) | payer MEDICARE, SELFPAY | PROVIDERS: PCP Nurse Practitioner Family; Visit Provider Podiatrist Foot & Ankle Surgery | DX: E11.42 Type 2 diabetes mellitus with diabetic polyneuropathy (principal); L60.3 Nail dystrophy; M76.821 Posterior tibial tendinitis, right leg; M76.822 Posterior tibial tendinitis, left leg; M21.41 Flat foot [pes planus] (acquired), right foot; M21.42 Flat foot [pes planus] (acquired), left foot; G62.0 Drug-induced polyneuropathy; Z79.84 Long term (current) use of oral hypoglycemic drugs | CPT/HCPCS: 11721; 99213 ==

== ENCOUNTER 2024-09-03 14:16 | Oncology outpatient (recurring) (ONCR) | payer MEDICARE, SELFPAY | END 2024-09-10 23:59 | disposition home or self-care (01) | LOC: ONCMED 14:16 | PROVIDERS: PCP Nurse Practitioner Family; Visit Provider Internal Medicine | DX: Z45.2 Encounter for adjustment and management of vascular access device (principal) | CPT/HCPCS: 96523 ==

== ENCOUNTER 2024-10-07 13:17 | Oncology outpatient (recurring) (ONCR) | payer MEDICARE, SELFPAY | END 2024-10-11 23:59 | disposition home or self-care (01) | LOC: ONCMED 13:18 | PROVIDERS: PCP Nurse Practitioner Family; Visit Provider Internal Medicine | DX: Z45.2 Encounter for adjustment and management of vascular access device (principal); Z95.828 Presence of other vascular implants and grafts | CPT/HCPCS: 96523 ==

== ENCOUNTER 2024-11-25 14:00 | Oncology outpatient (recurring) (ONCR) | payer MEDICARE, SELFPAY ==
--- NOTE | 2024-11-24 09:30 | CTR_ITS ---
PROCEDURE INFORMATION: Exam: CT Chest With Contrast; Diagnostic Exam date and time: 11/24/2024 10:06 AM Age: 68 years old Clinical indication: Condition or disease; Other: Colon cancer; Prior surgery; Surgery date: 6+ months; Surgery type: Gb, hyst, colon; Additional info: Compare to previous TECHNIQUE: Imaging protocol: Diagnostic computed tomography of the chest with contrast. Radiation optimization: All CT scans at this facility use at least one of these dose optimization techniques: automated exposure control; mA and/or kV adjustment per patient size (includes targeted exams where dose is matched to clinical indication); or iterative reconstruction. Contrast material: OMNI 350; Contrast volume: 100 ml; Contrast route: INTRAVENOUS (IV); COMPARISON: CT chest abdpel w/*[id number] 05/20/2024 1:04 PM RADIATION DOSE METRICS: Total DLP (mGy-cm): 1385.33 FINDINGS: Thyroid: 1.7 cm right thyroid nodule noted. Lungs: Unremarkable. No consolidation. No masses. Pleural spaces: Unremarkable. No pneumothorax. No pleural effusion. Heart: Unremarkable. No cardiomegaly. No pericardial effusion. Lymph nodes: Unremarkable. No enlarged lymph nodes. Vasculature: Unremarkable. No aortic aneurysm. Bones/joints: Unremarkable. No acute fracture. Soft tissues: Unremarkable. COMMENTS: Consistent with the [employer]'s Incidental Findings Committee white paper (J Am Nida Radiol 2015): In patients aged 35 years and older with an incidental thyroid nodule equal to or greater than 1.[address], MRI or extrathyroidal US, further evaluation with dedicated thyroid US is recommended for patients with normal life expectancy and without comorbidities. For smaller nodules without suspicious features, no further evaluation or follow up is recommended. PROCEDURE INFORMATION: Exam: CT Abdomen And Pelvis With Contrast Exam date and time: 11/24/2024 10:06 AM Age: 68 years old Clinical indication: Condition or disease; Other: Colon cancer; Prior surgery; Surgery date: 6+ months; Surgery type: Gb, hyst, colon; Additional info: Compare to previous TECHNIQUE: Imaging protocol: Computed tomography of the abdomen and pelvis with contrast. Radiation optimization: All CT scans at this facility use at least one of these dose optimization techniques: automated exposure control; mA and/or kV adjustment per patient size (includes targeted exams where dose is matched to clinical indication); or iterative reconstruction. Contrast material: OMNI 350; Contrast volume: 100 ml; Contrast route: INTRAVENOUS (IV); COMPARISON: CT abdomen pelvis con [id number] 05/28/2024 3:01 PM RADIATION DOSE METRICS: Total DLP (mGy-cm): 1385.33 FINDINGS: Lungs: Lung bases are clear. No pleural effusion. Liver: Normal. No mass. Gallbladder and biliary ducts: The gallbladder has been resected. Pancreas: Normal. No ductal dilation. Spleen: Normal. No splenomegaly. Adrenal glands: Normal. No mass. Kidneys and ureters: There is prominence involving both renal pelvis with no evidence of hydronephrosis. Stomach and bowel: There is evidence of previous right colonic surgery. Appendix: No evidence of appendicitis. Intraperitoneal space: Unremarkable. No free air. No significant fluid collection. Vasculature: A 1.8 cm calcified splenic artery aneurysm is noted. Lymph nodes: Unremarkable. No enlarged lymph nodes. Urinary bladder: Unremarkable as visualized. Reproductive: Unremarkable as visualized. Bones/joints: Unremarkable. No acute fracture. Soft tissues: Unremarkable. CT/CT chest abdpel w/*[id number] IMPRESSION: 1. There is no evidence of active neoplastic disease. 2. Stable right thyroid nodule IMPRESSION: 1. There is no evidence of active neoplastic disease. 2. Stable splenic artery aneurysm 3. Surgical changes again noted
[2024-11-24 10:01] LABS: Blood Urea Nitrogen 9 mg/dL (8-23)
[2024-11-24] MEDS: iohexol 350 mg/mL 500 mL Btl (per mL) PO (10:09)
[2024-11-24] MEDS: iohexol 350 mg/mL 500 mL Btl (per mL) IV (10:09)
[2024-11-25 14:06] LABS: Hematocrit 40.5 % (36-47); Hemoglobin 13.90 g/dL (11.27-16.99); Mean Corpuscular HGB Conc 34.3 g/dL (30-55); Mean Corpuscular Hemoglobin 32.0 pg (27-33); Mean Corpuscular Volume 93.3 fl (85-98); Nucleated Red Blood Cells % 0 %; Platelet Count 268 10^3/cmm (157-399); Red Blood Count 4.34 10^6/uL (3.85-5.65); White Blood Count 6.58 10^3/uL (3.29-11.43)
[2024-11-25 14:33] LABS: Carcinoembryonic Antigen 1.5 ng/mL (0.0-4.7)
[2024-11-25 14:44] LABS: Alanine Aminotransferase 41 U/L (0-33); Albumin Level 4.3 g/dL (3.5-5.2); Alkaline Phosphatase 80 U/L (35-105); Anion Gap 18.1 (5-19); Aspartate Amino Transferase 30 U/L (0-32); Blood Urea Nitrogen 8 mg/dL (8-23); Calcium 9.5 mg/dL (8.5-10.5); Carbon Dioxide 24 mmol/L (22-29); Chloride 101 mmol/L (98-107); Creatinine Clr Calc Pharmacy 84.3790; Globulin 3.0 g/dL (1.3-4.6); Glucose 120 mg/dL (65-115); Osmolality Calculated 288 mOsm/kg (285-295); Potassium 4.1 mmol/L (3.5-5.1); Sodium 139 mmol/L (136-145); Total Protein 7.3 g/dL (6.6-8.7)
== END 2024-12-11 23:59 | disposition home or self-care (01) ==
PROVIDERS: PCP Nurse Practitioner Family; Visit Provider Internal Medicine Medical Oncology
DX: Z53.9 Procedure and treatment not carried out, unspecified reason; Z08 Encounter for follow-up examination after completed treatment for malignant neoplasm; Z85.038 Personal history of other malignant neoplasm of large intestine; R03.0 Elevated blood-pressure reading, without diagnosis of hypertension; Z90.49 Acquired absence of other specified parts of digestive tract
CPT/HCPCS: 36415; 71260; 74177; 80053; 82378; 82565; 84520; 85025; 99214